=== PATIENT | male | born 1940 | race Caucasian/White ===

== ENCOUNTER → 2016-07-12 | Outpatient (CLI) | payer BC ==
[~2016-07-12] MED LIST: ASPEC325 PO; CHOL100010 PO; CLIN1SOL TOP; CLX20 PO; COQ10100 PO; FENO134C2 PO; GLCSC750600 PO; LOSA25TA18 PO; MULT-506 PO; NTRGSL/4 UT; OMEG10007 PO; TURMPOW PO
--- NOTE | 2016-07-12 11:49 | DIAGNOSTIC IMAGING REPORT ---
LEFT SHOULDER MIN 2 VIEWS ROUTINE CLINICAL HISTORY: Left shoulder pain. Fall. Impingement. COMPARISON: None FINDINGS: Median sternotomy wires and clips from bypass grafting are incidentally noted. There is moderate AC joint arthrosis and glenohumeral joint arthrosis. No fracture or suspicious lesion is present. IMPRESSION: 1. 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 2. No fracture. Electronically signed by: Godfrey Bustillos M.D. 07/12/2016 11:47 AM Dictated Date/Time: 07/12/2016 11:40 AM
== END | disposition home or self-care (01) ==
LOC: C.RAD1850 11:27
PROVIDERS: ATTEND Family Medicine
DX: M19.012 Primary osteoarthritis, left shoulder (principal)

== ENCOUNTER → 2016-09-24 | Outpatient (CLI) | payer BC ==
[~2016-09-24] MED LIST changes: +ASPI325T45 PO; +CHOL20007 PO; +CITA20TA4 PO; +COEN1CAP28 PO; +GLUC250C PO; +MAGN400T6 PO; +OXYC-57 PO; +REPA2TAB12 PO; +TAMS0.4C38 PO
[2016-09-24 13:32] LABS: HEMATOCRIT 40.1 % (42-52); MEAN CELL VOLUME 92.6 fL (80-100); MEAN CORPUSCULAR HEMOGLOBIN 29.6 pg (25-34); MEAN CORPUSCULAR HGB CONC 31.9 g/dl (32-36); MEAN PLATELET VOLUME 10.2 fL (7.4-10.4); PLATELET COUNT 169 K/uL (130-400); RED BLOOD COUNT 4.33 M/uL (4.7-6.1)
[2016-09-24 13:45] LABS: BLOOD UREA NITROGEN 25 mg/dl (7-18); BUN/CREATININE RATIO 15.7 (10-20); CARBON DIOXIDE 29 mmol/L (21-32); CHLORIDE 109 mmol/L (98-107); GLUCOSE 132 mg/dl (70-99); POTASSIUM 4.4 mmol/L (3.5-5.1); SODIUM 145 mmol/L (136-145)
[2016-09-24 13:46] LABS: CALCIUM 9.6 mg/dl (8.5-10.1)
== END | disposition home or self-care (01) ==
LOC: C.LAB1850 11:30
PROVIDERS: ATTEND Internal Medicine Nephrology
DX: I10 Essential (primary) hypertension (principal); N18.3 Chronic kidney disease, stage 3 (moderate); N30.90 Cystitis, unspecified without hematuria; E55.9 Vitamin D deficiency, unspecified; C91.10 Chronic lymphocytic leukemia of B-cell type not having achieved remission; R80.9 Proteinuria, unspecified; N17.9 Acute kidney failure, unspecified

== ENCOUNTER → 2017-01-14 | Outpatient (CLI) | payer BC ==
[~2017-01-14] MED LIST changes: -OXYC-57 PO; -REPA2TAB12 PO; +REPA2TAB13 PO
[2017-01-14 16:59] LABS: MEAN CORPUSCULAR HGB CONC 32.6 g/dl (32-36); MEAN PLATELET VOLUME 10.2 fL (7.4-10.4); PLATELET COUNT 195 K/uL (130-400)
[2017-01-14 17:05] LABS: URINE APPEARANCE CLEAR (CLEAR); URINE BILIRUBIN NEG (NEG); URINE COLOR YELLOW; URINE EPITHELIAL CELL AUTO 0-5 /lpf (0-5); URINE NITRITE NEG (NEG); UROBILINOGEN NEG (NEG)
[2017-01-14 17:06] LABS: ALT/SGPT 23 U/L (12-78); AST/SGOT 16 U/L (15-37); BLOOD UREA NITROGEN 40 mg/dl (7-18); BUN/CREATININE RATIO 16.7 (10-20); CALCIUM 9.4 mg/dl (8.5-10.1); CARBON DIOXIDE 27 mmol/L (21-32); CHLORIDE 110 mmol/L (98-107); GLUCOSE 150 mg/dl (70-99); POTASSIUM 4.6 mmol/L (3.5-5.1); SODIUM 143 mmol/L (136-145)
[2017-01-14 17:09] LABS: ALB/GLOB RATIO 1.1 (0.9-2); ALKALINE PHOSPHATASE 53 U/L (45-117)
[2017-01-14 17:12] LABS: MANUAL MICROSCOPIC REQUIRED? NO; REVIEW REQ? NO
[2017-01-14 17:23] LABS: URINE PROTIEN/CREAT RATIO 0.3 (0-0.2); URINE TOTAL PROTEIN 27.6 mg/dl (0-11.9)
[2017-01-14 17:53] LABS: HEMATOCRIT 37.7 % (42-52); MEAN CELL VOLUME 89.8 fL (80-100); MEAN CORPUSCULAR HEMOGLOBIN 29.3 pg (25-34); WHITE BLOOD COUNT 27.91 K/uL (4.8-10.8)
[2017-01-14 17:54] LABS: COMPLETE YES; EOSINOPHIL % 0.9 %; LYMPH ABS # 21.24 K/uL (1.2-3.4); LYMPHOCYTE % 76.1 %; NEUTROPHILS % 15.9 %; PROLYM# MAN 1.23 K/uL (0-0); SMUDGE CELLS PRESENT
== END | disposition home or self-care (01) ==
LOC: C.LAB1850 14:56
PROVIDERS: ATTEND Internal Medicine Nephrology
DX: I12.9 Hypertensive chronic kidney disease with stage 1 through stage 4 chronic kidney disease, or unspecified chronic kidney disease (principal); N18.3 Chronic kidney disease, stage 3 (moderate); C91.10 Chronic lymphocytic leukemia of B-cell type not having achieved remission; R80.9 Proteinuria, unspecified; E55.9 Vitamin D deficiency, unspecified; N17.9 Acute kidney failure, unspecified

== ENCOUNTER → 2017-02-12 | Outpatient (CLI) | payer BC ==
[2017-02-12 16:01] LABS: MANUAL MICROSCOPIC REQUIRED? NO; REVIEW REQ? NO; URINE APPEARANCE CLEAR (CLEAR); URINE BILIRUBIN NEG (NEG); URINE COLOR YELLOW; URINE NITRITE NEG (NEG); URINE PH 5.5 (4.5-7.5); UROBILINOGEN NEG (NEG)
[2017-02-12 16:24] LABS: URINE PROTIEN/CREAT RATIO 0.3 (0-0.2); URINE TOTAL PROTEIN 37.5 mg/dl (0-11.9)
[2017-02-12 16:26] LABS: BLOOD UREA NITROGEN 29 mg/dl (7-18); BUN/CREATININE RATIO 15.2 (10-20); CALCIUM 9.7 mg/dl (8.5-10.1); CARBON DIOXIDE 24 mmol/L (21-32); CHLORIDE 109 mmol/L (98-107); GLUCOSE 191 mg/dl (70-99); PHOSPHORUS 3.4 mg/dl (2.5-4.9); POTASSIUM 4.4 mmol/L (3.5-5.1); SODIUM 141 mmol/L (136-145)
== END | disposition home or self-care (01) ==
LOC: C.LAB1850 14:49
PROVIDERS: ATTEND Internal Medicine Nephrology
DX: I10 Essential (primary) hypertension (principal); N18.3 Chronic kidney disease, stage 3 (moderate); N30.90 Cystitis, unspecified without hematuria; E55.9 Vitamin D deficiency, unspecified; C91.10 Chronic lymphocytic leukemia of B-cell type not having achieved remission

== ENCOUNTER 2017-03-28 05:06 | Day surgery (SDC) | payer BC ==
[2017-03-14 11:42] VITALS: BMI 32.0
--- NOTE | 2017-03-14 12:08 | PAT Medication Instructions ---
Service Date Mar 14, 2017. Current Home Medication List Aspirin (Aspirin), 325 MG PO QAM Cholecalciferol (Vitamin D3), 2.5 TAB PO QAM Citalopram Hydrobromide (Citalopram Hydrobromide), 1 TAB PO QPM Clindamycin Phosphate (Topical (Cleocin-T), TOP HS Coenzyme Q10 (Ubidecarenone) (Co Q10), 200 MG PO BID Fenofibrate (Tricor ), 134 MG PO QPM Fish Oil ([place]-3), 3 CAP PO QAM Glucosamine-Chondroitin (Glucosamine/Chondroitin), 1 CAP PO BID Magnesium Oxide (Mag-Ox), 400 MG PO DAILY PRN for PRN Multivitamin (Multivitamin), 1 TAB PO QAM Nitroglycerin (Nitrostat), 0.4 MG UT PRN Repaglinide (Prandin), 2 MG PO AC Tamsulosin Hcl (Flomax), 0.4 MG PO HS Turmeric (Curcuma Longa) (Bulk (Turmeric), 6 GM PO QAM Medication Instructions For Your Scheduled Surgery - Continue as directed: Nitroglycerin (Nitrostat), 0.4 MG UT PRN - Hold the following medications 2 weeks prior to surgery: Turmeric (Curcuma Longa) (Bulk (Turmeric), 6 GM PO QAM Glucosamine-Chondroitin (Glucosamine/Chondroitin), 1 CAP PO BID Coenzyme Q10 (Ubidecarenone) (Co Q10), 200 MG PO BID Fish Oil ([place]-3), 3 CAP PO QAM - Hold the following medications 24 hours prior to surgery: Fenofibrate (Tricor ), 134 MG PO QPM Clindamycin Phosphate (Topical (Cleocin-T), TOP HS - Hold the following medications the morning of surgery: Cholecalciferol (Vitamin D3), 2.5 TAB PO QAM Repaglinide (Prandin), 2 MG PO AC Magnesium Oxide (Mag-Ox), 400 MG PO DAILY PRN for PRN Multivitamin (Multivitamin), 1 TAB PO QAM Aspirin (Aspirin), 325 MG PO QAM (otherwise okay to continue per surgeon) - Take the following medications as scheduled the night before surgery: Tamsulosin Hcl (Flomax), 0.4 MG PO HS Citalopram Hydrobromide (Citalopram Hydrobromide), 1 TAB PO QPM *nothing to eat or drink after midnight* If you have any questions please call us at [phone] or [phone] or [phone]
--- NOTE | 2017-03-14 13:11 | DIAGNOSTIC IMAGING REPORT ---
CHEST PREADMISSION(PA/LAT) CLINICAL HISTORY: Preoperative evaluation. COMPARISON STUDY: Chest radiograph December 08, [address] of March 28, 2012. FINDINGS: Lung volumes are normal. There is no pneumothorax or pleural effusion. There are median sternotomy wires and clips from bypass grafting. Cardiac size is at the upper limits of normal. There is no evidence of pulmonary edema. No consolidation is identified. IMPRESSION: No acute cardiopulmonary findings. Electronically signed by: Godfrey Bustillos M.D. 03/14/2017 1:09 PM Dictated Date/Time: 03/14/2017 1:09 PM
[2017-03-14 13:50] LABS: HEMATOCRIT 38.1 % (42-52); MEAN CELL VOLUME 89.4 fL (80-100); MEAN CORPUSCULAR HEMOGLOBIN 28.9 pg (25-34); MEAN CORPUSCULAR HGB CONC 32.3 g/dl (32-36); MEAN PLATELET VOLUME 9.8 fL (7.4-10.4); PLATELET COUNT 159 K/uL (130-400); RED BLOOD COUNT 4.26 M/uL (4.7-6.1); WHITE BLOOD COUNT 55.57 K/uL (4.8-10.8)
[2017-03-14 14:12] LABS: BASO ABS # 0.22 K/uL (0-0.2); BASOPHIL % 0.4 % (0-2); COMPLETE YES; EOSINOPHIL % 0.4 %; LYMPH ABS # 31.67 K/uL (1.2-3.4); NEUTROPHILS % 12.6 %; SMUDGE CELLS PRESENT
[~2017-03-28] VITALS: Ht 180.3 cm; Wt 105.3 kg
[~2017-03-28 05:06] MED LIST changes: -ASPEC325 PO; -CHOL100010 PO; -CLX20 PO; -COQ10100 PO; -GLCSC750600 PO; -LOSA25TA18 PO; +REPA2TAB12 PO; -REPA2TAB13 PO
[2017-03-28 05:42] VITALS: BP 174/86; PULSE 69; TEMP 36.7; O2SAT 99; Ht 180.3 cm; Wt 105.3 kg
[2017-03-28] MEDS ORDERED: LACTATED RINGER'S 1000ML 1,000 ML IV SCH (06:00)
[2017-03-28] MEDS ORDERED: BACITRACIN 50000 UNIT VIAL ONE (06:29)
[2017-03-28] MEDS ORDERED: BUPIVACAINE 0.5 % 5 MG/1 ML MPF 30ML VIAL ONE (06:29)
--- NOTE | 2017-03-28 06:30 | History & Physical Bridge Note ---
H&P Re-Evaluation Bridge Note: I have examined the patient, reviewed the History & Physical and in the interval since the performance of the History & Physical I have noted the following changes of clinical significance: No changes noted pt marked SO at bedside all questions answered
[2017-03-28] MEDS ORDERED: HYDROmorphone INJ 2 MG/ML SYR/VIAL IV PRN (08:15)
[2017-03-28] MEDS ORDERED: LABETALOL HCL IV 5 MG/ML 20ML IV PRN (08:15)
[2017-03-28] MEDS ORDERED: ONDANSETRON INJ 2 MG/ML 2 ML VIAL IV PRN ×2 (08:15→11:45)
[2017-03-28] MEDS ORDERED: PHENYLEPHRINE 100MCG/ML 5ML SYR IV PRN (08:15)
[2017-03-28] MEDS ORDERED: ATROPINE SULFATE 0.1 MG/ML 5ML SYR IV PRN (08:15)
[2017-03-28] MEDS ORDERED: NALOXONE HCL 0.4 MG/1 ML VIAL/CARP IV PRN (08:15)
[2017-03-28] MEDS ORDERED: MEPERIDINE HCL 25 MG/ML CARP IV PRN (08:15)
[2017-03-28] MEDS ORDERED: FENTANYL CITRATE INJ 50 MCG/1 ML 2 ML VIAL IV PRN (08:15)
[2017-03-28] MEDS ORDERED: FLUMAZENIL 0.1 MG/1 ML 10 ML VIAL IV PRN (08:15)
[2017-03-28] MEDS ORDERED: EpHEDrine SULFATE INJ 50 MG/ML AMP IV PRN (08:15)
[2017-03-28] MEDS ORDERED: PROPOFOL IV EMULSION 10 MG/ML 20 ML VIAL IV ONE (09:26)
[2017-03-28] MEDS ORDERED: LIDOCAINE HCL 2% 2 ML VIAL (20MG/ML) ONE (09:26)
[2017-03-28] MEDS ORDERED: FENTANYL CITRATE INJ 50 MCG/1 ML 2 ML VIAL ONE ×3 (09:27→11:23)
[2017-03-28] MEDS ORDERED: EpHEDrine SULFATE INJ 50 MG/ML AMP ONE (11:23)
[2017-03-28] MEDS ORDERED: NEOSTIGMINE METHYLSULFATE 5 MG/5 ML SYR ONE (11:23)
[2017-03-28] MEDS ORDERED: ONDANSETRON INJ 2 MG/ML 2 ML VIAL ONE (11:23)
[2017-03-28] MEDS ORDERED: SODIUM CHLORIDE 0.9% 1000ML 1,000 ML IV SCH (11:32)
[2017-03-28] MEDS ORDERED: OXYC-57 PO (11:36)
--- NOTE | 2017-03-28 11:39 | [facility] Operative Report ---
Operative Report Operative Date Mar 28, 2017. Pre-Operative Diagnosis Ventral hernia. Post-Operative Diagnosis Same as preop. incisional abd adhesions Procedure(s) Performed Laparoscopic repair of incisional hernia with 12 cm surgimesh, lysis of abdominal adhesions. Surgeon Dr. Jay Merchandising Consultant Surgeon(s) Keyur Jacobo, PAC Estimated Blood Loss 15 ml Findings abd adhesion and multiple incisional defects Specimens None. Description of Procedure OR summary dictated confirmation number [id number] I attest to the content of the Intraoperative Record and any orders documented therein. Any exceptions are noted below.
--- NOTE | 2017-03-28 11:44 | Discharge Instructions ---
Discharge Instructions Date of Service Mar 28, 2017. Visit Reason for Visit: Ventral Hernia Discharge Discharge Diagnosis / Problem: Ventral Hernia Discharge Goals Goal(s): Decrease discomfort, Improve function Activity Recommendations Activity Limitations: as noted below Lifting Limitations: no more than 10 pounds Exercise/Sports Limitations: until after follow-up appointment Shower/Bathe: tomorrow Driving or Machine Use: resume 1 day after discharge (When no longer using narcotic pain medication) Anesthesia . Post Anesthesia Instructions: If you have had General Anesthesia or IV Sedation: * Do not drive today. * Resume driving when surgeon permits. * Do not make important decisions or sign legal documents today. * Call surgeon for: 1. Temperature elevations greater than 101 degrees F. 2. Uncontrollable pain. 3. Excessive bleeding. 4. Persistent nausea and vomiting. 5. Medication intolerance (nausea, vomiting or rash). * For nausea and vomiting use only clear liquids such as: tea, soda, bouillon until nausea subsides, then gradually increase diet as tolerated. * If you have any concerns or questions, call your surgeon's office. If physician is unavailable and it is an emergency, call 911 or go to the nearest emergency room. . Instructions / Follow-Up Instructions / Follow-Up Follow up with Dr. Jay in the clinic in 1 week. Please call [facility] at [phone] to schedule an appointment if you have not done so already. [facility]. [address] [place] [address]. Diet Recommendations Recommended Home Diet: resume previous diet (Advance as tolerated) Procedures Procedures Performed: Laparoscopic repair of incisional hernia, lysis of abdominal adhesions. Pending Studies Studies pending at discharge: no Medical Emergencies . Who to Call and When: Medical Emergencies: If at any time you feel your situation is an emergency, please call 911 immediately. . Non-Emergent Contact Non-Emergency issues call your: Primary Care Provider, Surgeon Call Non-Emergent contact if: you have a fever, temperature is above 101.5, your pain is not controlled, your pain is worsening, wound has increased drainage, wound has increased redness . . "Provider Documentation" section prepared by Joey Tan. . [place] Drug Monitoring Program Search Results: patient reviewed within database, no issues identified
[2017-03-28] MEDS ORDERED: OXYCODONE/ACETAMINOPHEN 5-325 TAB PO PRN ×2 (11:45)
[2017-03-28] MEDS ORDERED: MoRPHine SULFATE 2 MG/ML CARP IV PRN (11:45)
[2017-03-28] MEDS ORDERED: ROCURONIUM BROMIDE 10 MG/ML 5 ML VIAL IV ONE (11:47)
--- NOTE | 2017-03-28 11:49 | Anesthesiology Progress Note ---
Anesthesia Post Op Note Date & Time Mar 28, 2017 at 11:49 Vital Signs Pain Intensity: 0 Vital Signs Past 12 Hours Date Time Temp Pulse Resp B/P (MAP) Pulse Ox O2 Delivery O2 Flow Rate FiO2 03/28/17 11:40 75 12 169/82 99 Oxymask 5 03/28/17 11:32 36.2 87 12 177/88 96 Oxymask 5 03/28/17 05:42 36.7 69 20 174/86 (115) 99 Room Air Notes Mental Status: alert / awake / arousable, participated in evaluation Pt Amnestic to Procedure: Yes Nausea / Vomiting: adequately controlled Pain: adequately controlled Airway Patency, RR, SpO2: stable & adequate BP & HR: stable & adequate Hydration State: stable & adequate Anesthetic Complications: no major complications apparent
[2017-03-28 12:15] VITALS: BP 151/67; PULSE 72; TEMP 36.7; O2SAT 94
[2017-03-28 12:45] VITALS: BP 140/58; PULSE 68; O2SAT 94
[2017-03-28 13:15] VITALS: BP 137/60; PULSE 67; TEMP 36.7; O2SAT 95
--- NOTE | 2017-03-28 13:27 | OPERATIVE REPORT ---
DATE OF OPERATION: 03/28/2017 SURGEON: Mendez Jay MD. BRAZING MACHINE FEEDER: Yoav Jacobo PA-C and Joey Acosta PA-C. PREOPERATIVE DIAGNOSIS: Ventral hernia. POSTOPERATIVE DIAGNOSIS: Incarcerated incisional hernia with dense abdominal adhesions. PROCEDURES: Laparoscopic lysis of abdominal adhesions and repair of an incarcerated incisional hernia with 12-cm Surgimesh. SUMMARY: The patient was brought into the operating room. A River catheter had been inserted. The abdomen was prepped with scrubbing solution and properly draped. We made a small incision above the umbilicus. 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 We made the incision away from the previous scar, dissected out of the abdominal wall with Joey clamps to the point that we were able then to enter the fascia. Under direct visualization, we entered the peritoneal cavity, where a trocar was inserted without any difficulty. CO2 insufflated slowly. At this point, we were able to identify in the camera that we were probably into some omental areas attached to the incision. Therefore, we looked around and we were able to look at the pelvic area and identified that the patient had 2 inguinal hernias, but certainly there were not a problem at this time and actually, he never complained about it. We then were able to find a window in the left lower quadrant that opened from the adhesions, where we were able to place a 5-mm trocar under direct visualization with preemptive local analgesia of 1% Xylocaine. Similarly once we placed the camera in that area, we were able to identify the initial opening that the patient had a significant amount of omental adhesions, completely incarcerating and adherent to the abdominal wall, where the hernia was, which was palpable to the left of the midline in an almost supraumbilical area. We then elected to place another 5-mm trocar in the left upper quadrant, which the field was quite open and a 5-mm right upper quadrant. Then with these, we were able to reduce completely an incarcerated omentum strictly adherent to the hernial sac using electrocautery. Once we returned everything inside the abdomen, we then were able to delineate that the patient had multiple defects, certainly one about 2 cm that was free and a few other ones. Therefore, we dissected out and entered the preperitoneal fat to the musculofascial plane. So, we had enough overlap that we could use the mesh away from placing it against the peritoneum and fatty tissue. We wanted to place it against the muscular fascial planes, which we did. We brought out 12-cm mesh, which was previously marked on the skin to overlap the defect that the patient had quite nicely. We tacked it to the abdominal wall with absorbable tackers. Once this had been completed, we then used fascial sutures of 2-0 nylon to further adhering the mesh to the fascial planes. The repair appeared to be solid. At this point, we took down individual trocars under direct visualization that allowed us to remove the left upper quadrant trocar. The mesh had been placed through the 5-mm trocar that we initially had placed to enter the abdomen and once we placed the mesh there, we had closed that fascial stitch with 0 retention suture. The procedure was tolerated well by the patient. Estimated blood loss approximately 50 mL. The patient was taken to recovery room in good condition. I attest to the content of the Intraoperative Record and any orders documented therein. Any exceptions are noted below. MTDD
== END 2017-03-28 13:45 | disposition home or self-care (01) ==
LOC: C.ACU 05:06
PROVIDERS: ATTEND Surgery
DX: K43.9 Ventral hernia without obstruction or gangrene (principal); K66.0 Peritoneal adhesions (postprocedural) (postinfection); I25.10 Atherosclerotic heart disease of native coronary artery without angina pectoris; I50.9 Heart failure, unspecified; I13.0 Hypertensive heart and chronic kidney disease with heart failure and stage 1 through stage 4 chronic kidney disease, or unspecified chronic kidney disease; N18.3 Chronic kidney disease, stage 3 (moderate); E11.22 Type 2 diabetes mellitus with diabetic chronic kidney disease; D64.9 Anemia, unspecified; E55.9 Vitamin D deficiency, unspecified; G47.33 Obstructive sleep apnea (adult) (pediatric); N40.1 Benign prostatic hyperplasia with lower urinary tract symptoms; N13.8 Other obstructive and reflux uropathy; C91.10 Chronic lymphocytic leukemia of B-cell type not having achieved remission; E66.9 Obesity, unspecified; Z68.32 Body mass index [BMI] 32.0-32.9, adult; Z87.891 Personal history of nicotine dependence; Z79.82 Long term (current) use of aspirin; Z79.899 Other long term (current) drug therapy

== ENCOUNTER → 2017-06-06 | Outpatient (CLI) | payer BC ==
[~2017-06-06] MED LIST changes: +ASPECOTC PO; -ASPI325T45 PO
[2017-06-06 14:17] LABS: HEMATOCRIT 39.9 % (42-52); HEMOGLOBIN 12.9 g/dL (14.0-18.0); MEAN CELL VOLUME 90.7 fL (80-100); MEAN CORPUSCULAR HEMOGLOBIN 29.3 pg (25-34); MEAN CORPUSCULAR HGB CONC 32.3 g/dl (32-36); MEAN PLATELET VOLUME 9.9 fL (7.4-10.4); PLATELET COUNT 183 K/uL (130-400); RED CELL DISTRIBUTION WIDTH CV 15.2 % (11.5-14.5); RED CELL DISTRIBUTION WIDTH SD 49.1 fL (36.4-46.3); WHITE BLOOD COUNT 75.52 K/uL (4.8-10.8)
[2017-06-06 17:10] LABS: ALBUMIN 3.8 gm/dl (3.4-5.0); BLOOD UREA NITROGEN 39 mg/dl (7-18); CALCIUM 9.4 mg/dl (8.5-10.1); CARBON DIOXIDE 24 mmol/L (21-32); CREATININE 2.14 mg/dl (0.60-1.40); GLUCOSE 150 mg/dl (70-99); POTASSIUM 4.5 mmol/L (3.5-5.1); SODIUM 138 mmol/L (136-145)
[2017-06-06 17:11] LABS: PHOSPHORUS 3.7 mg/dl (2.5-4.9)
== END | disposition home or self-care (01) ==
LOC: C.LAB1850 12:13
PROVIDERS: ATTEND Internal Medicine Nephrology
DX: I12.9 Hypertensive chronic kidney disease with stage 1 through stage 4 chronic kidney disease, or unspecified chronic kidney disease (principal); N18.3 Chronic kidney disease, stage 3 (moderate); D64.9 Anemia, unspecified; R80.9 Proteinuria, unspecified

== ENCOUNTER 2020-07-11 17:18 | Inpatient (IN) ==
[2020-07-11] MEDS ORDERED: ONDANSETRON INJ 2 MG/ML 2 ML VIAL IV STA (17:56)
--- NOTE | 2020-07-11 17:56 | Emergency Department Note ---
Impression & Plan Dizziness, Hypertension, Nausea ED Provider Note Provider: Antoine Dawkins MD DATE OF SERVICE: 07/11/2020 CHIEF COMPLAINT: Dizzy, high blood pressure, nausea HISTORY OF PRESENT ILLNESS: Patient is a 79-year-old gentleman history of CLL, CKD, diabetes, CAD, hypertension presenting here today via ambulance with report of dizziness since yesterday with some nausea particularly noted elevated blood pressure today. Patient states about 3 weeks ago he had surgery for left ankle fracture has been recovering at home. Stated yesterday suddenly started to feel dizzy [place] with movement or if he change position. Denies any falls but states it felt like he was unsteady and going to fall. Denies any chest pain or palpitations. Denies abdominal pain states he feels quite nauseous. Decreased intake. Patient states he did not take his home blood pressure medicines of losartan and carvedilol as he thought these may be contributing. States in the distant past he had some orthostatic type dizziness but this felt different. Denies any headache or visual change. Patient states today blood pressure was significant elevated greater than 190 at home systolic and 140 diastolic and while the dizziness was a bit less still present called EMS. States has had less intake today due to nauseousness and has not really eaten anything. REVIEW OF SYSTEMS: A total of 10 review of systems was obtained and negative except as stated above in the HPI. PAST MEDICAL HISTORY: As noted above MEDICATIONS: Reviewed home medications with the patient SOCIAL HISTORY: Lives at home with PHYSICAL EXAM: GENERAL: alert and oriented in no acute distress on stretcher Head: normocephalic and atraumatic, hearing aids in place. EYES: No injection, discharge or icterus. PERRL, EOMI. NECK: Trachea midline. LUNGS: Airway patent. No retractions. Breath sounds clear HEART: Regular rate and rhythm. No chest wall tenderness ABDOMEN: Soft and non-tender, without guarding or rebound. SKIN: Acyanotic, warm, dry, without rashes EXTREMITIES: Without swelling, tenderness or deformity with the left ankle bandaged/dressed from prior surgery. No obvious signs of bleeding or swelling of this dressing. NEUROLOGICAL: No focal deficits. No aphasia. No facial droop or slurred speech. Normal strength and tone in the extremities. Sensation to gross touch normal in extremities EKG: Sinus bradycardia with first-degree AV block 51 bpm. No PVC. Left axis noted without acute ST segment elevation or depression. I right bundle branch and left anterior fascicular block noted. Compared to previous from June 21, 2018 heart rates decreased. CONTINUOUS CARDIAC MONITORING: was ordered and showed a heart rate of 40-50 bpm in sinus bradycardia Patient's laboratory studies and imaging reviewed. Differential includes Benign positional vertigo, dehydration, hypovolemia, anemia, tumor, infection, hypoglycemia, electrolyte abnormalities, cardiac sources, intracerebral event, toxicologic, neurologic, as well as other pathologies. IMPRESSION/MEDICAL DECISION MAKING: Patient presents complaining of 2 days of some dizziness with nausea symptoms. Benign abdomen without tenderness here. No fevers reported other URI symptoms. Patient reports a blood pressure significant of adverse blood pressure was significantly elevated. Repeats have been somewhat better. Patient states he did not take his normal blood pressure medicines yesterday as he thought this was causing some of his dizziness symptoms. He states these were provoked somewhat by movement. Patient denies any falls or other numbness or weakness in the extremities. Patient does have significant medical history of CLL, diabetes, CKD, and cardiac disease. Patient denies diarrheal symptoms or chest pain or palpitations but does report nausea and states decreased intake today. Do question of possible intracranial abnormality and CT of the head was completed. Basic labs were obtained especially given his underlying history of CKD. EKG without significant cardiac arrhythmia. Renal function actually appears better than baseline. Some hyponatremia 146 is noted today however. Transaminases not elevated and doubt acute hepatitis. No bilirubin elevation or evidence from lipase consistent with acute pancreatitis. Troponin is undetectable. CT the head without acute abnormality noted. Question if his symptoms are probably related to peripheral versus central cause of his dizziness. Given a small dose of Ativan here. Patient still quite difficult with ambulation and given concern for possible central (concern possible posterior circulation stroke) etiology discussed with him further observation here in the hospital. Blood pressure is elevated as well given a small dose of hydralazine given his bradycardia. The hospitalist was contacted. Patient updated his family via phone while I was in the room. DIAGNOSIS: Dizziness, nausea, hypertension DISPOSITION: Hospitalist will evaluate Patient was agreeable with this plan. Past Med/Surg History Medical History (Updated 07/11/20 @ 19:34 by Antoine Dawkins M.D.) Anemia BPH (benign prostatic hyperplasia) Cancer SKIN CANCER Chronic kidney disease, stage III (moderate) CLL (chronic lymphocytic leukemia) Depression Diabetes mellitus, type 2 Diverticulitis PERFORATED COLON Gout Hyperlipidemia Hypertension Myocardial Infarction 1997 Peripheral neuropathy Sleep apnea NO DEVICE Vitamin D deficiency Surgical History History of adenoidectomy History of bowel resection WITH ILEOSTOMY, 2/2 PERFORATED DIVERTICULUM History of cardiac cath 1997 (NO STENTS) 2015 (NO STENTS) History of cataract surgery History of coronary artery bypass graft 1999 ([facility]) GARCIA to LAD with segment of left radial artery placed as a Y graft to Dx, free L radial artery to OM1 and a free sequential L radial artery to PDA. History of herniorrhaphy History of nasal septoplasty History of reversal of ileostomy History of tonsillectomy History of tooth extraction History of uvulopalatopharyngoplasty Family History Grandfather (Paternal) Family history of diabetes mellitus Son No problems noted. Sister Family history of diabetes mellitus Brother Family history of diabetes mellitus Family hx of colon cancer Social History Smoking Status: Former smoker Second Hand Exposure: No; Hx Alcohol Use: Yes Alcohol type: beer Hx Substance Use: No Preferred Language: Citizen Of [place] Communication Ability: Effective Visual Impairment: No Limitations Hearing Ability: Normal Medical Specialist Required: No Beliefs That Will Affect Care: None marital status: Current Living Situation: Spouse Feels Safe at Home: Yes Assistive Devices: Glasses Allergies Allergies Allergy/AdvReac Type Severity Reaction Status Date / Time Iodinated Contrast Media Allergy Intermediate Hives Verified 06/18/20 15:58 tetracycline Allergy Intermediate SWELLING Verified 06/18/20 15:58 OF GENITALS Pfrocbf-Yqi-Ieh Reductase AdvReac Mild JOINT PAIN Verified 06/18/20 15:58 Inhibitor Home Meds Home Medications Medication Instructions Recorded Confirmed cholecalciferol (vitamin D3) 5,000 unit PO DAILY 06/10/18 07/11/20 [Vitamin D3] citalopram 20 mg PO QPM 06/10/18 07/11/20 coQ10 (ubiquinol) 200 mg PO DAILY 06/10/18 07/11/20 desonide 1 applic TOPICAL QID PRN 06/10/18 07/11/20 glucosamine-chondroitin 1 cap PO BID 06/10/18 07/11/20 ketoconazole 1 applic TOPICAL DAILY PRN 06/10/18 07/11/20 magnesium oxide 250 mg PO DAILY 06/10/18 07/11/20 multivitamin 1 tab PO DAILY 06/10/18 07/11/20 nitroglycerin 1 tab SUBLINGUAL UD PRN 06/10/18 07/11/20 omega 1-mmu-sav-fish oil [Fish Oil] 1 cap PO DAILY 06/10/18 07/11/20 repaglinide [Prandin] 4 mg PO TID 06/10/18 07/11/20 tamsulosin 0.4 mg PO QPM 06/10/18 07/11/20 ondansetron HCl 8 mg PO UD PRN 06/21/18 07/11/20 clobetasol 0.05 % scalp solution 1 appln TOPICAL PRN ml 02/16/19 07/11/20 fluocinonide 0.05 % topical 1 appln TOPICAL BID PRN ml 02/16/19 07/11/20 solution carvedilol 6.25 mg tablet 6.25 mg PO BID 12/04/19 07/11/20 furosemide 20 mg tablet 20 mg PO DAILY tab 03/24/20 07/11/20 isosorbide mononitrate 30 mg 30 mg PO DAILY 03/24/20 07/11/20 tablet,extended release 24 hr losartan 100 mg tablet 50 mg PO DAILY tab 03/24/20 07/11/20 ascorbic acid (vitamin C) [Vitamin 500 mg PO Q OTHER DAY 06/18/20 07/11/20 C] ferrous sulfate 325 mg PO Q OTHER DAY 06/18/20 07/11/20 ibrutinib 140 mg PO DAILY 06/18/20 07/11/20 terbinafine HCl 0 mg PO DAILY PRN 06/18/20 07/11/20 Results & Data (ED) Vital Signs Vital Signs - 24 hr 07/11/20 17:27 07/11/20 17:51 07/11/20 18:00 Temperature 36.9 C Temperature Source Oral Pulse Rate 58 L 58 L 51 L Pulse Rate [Right Finger] Pulse Rate from SpO2 Sensor 54 L 50 L Respiratory Rate 18 20 16 Respiratory Effort / Characteristics Respiratory Depth Respiratory Pattern Blood Pressure 223/82 H Blood Pressure [Right Arm] Blood Pressure Mean 129 Blood Pressure Mean [Right Arm] Blood Pressure Position [Right Arm] Pulse Oximetry 99 98 94 Oxygen Delivery Method Room Air Sepsis Recent Fever Within 48 Hours No Sepsis New/Unexplained Change in Mental Status No Sepsis Action Taken by Nursing No Action Required 07/11/20 18:15 07/11/20 18:22 07/11/20 18:26 Temperature Temperature Source Pulse Rate 54 L 49 L Pulse Rate [Right Finger] Pulse Rate from SpO2 Sensor 55 L Respiratory Rate 15 15 Respiratory Effort / Characteristics Respiratory Depth Respiratory Pattern Blood Pressure 180/67 H Blood Pressure [Right Arm] Blood Pressure Mean 104 Blood Pressure Mean [Right Arm] Blood Pressure Position [Right Arm] Pulse Oximetry 97 98 Oxygen Delivery Method Room Air Sepsis Recent Fever Within 48 Hours Sepsis New/Unexplained Change in Mental Status Sepsis Action Taken by Nursing 07/11/20 18:30 07/11/20 19:27 07/11/20 20:06 Temperature Temperature Source Pulse Rate 49 L 52 L Pulse Rate [Right Finger] 61 Pulse Rate from SpO2 Sensor 49 L Respiratory Rate 15 20 16 Respiratory Effort / Characteristics Non-Labored Spontaneous Respiratory Depth Normal Respiratory Pattern Regular Blood Pressure 208/58 H Blood Pressure [Right Arm] 183/64 H Blood Pressure Mean 108 Blood Pressure Mean [Right Arm] 103 Blood Pressure Position [Right Arm] Lying Pulse Oximetry 93 96 Oxygen Delivery Method Room Air Sepsis Recent Fever Within 48 Hours Sepsis New/Unexplained Change in Mental Status Sepsis Action Taken by Nursing 07/11/20 20:31 Temperature Temperature Source Pulse Rate 52 L Pulse Rate [Right Finger] Pulse Rate from SpO2 Sensor 52 L Respiratory Rate 16 Respiratory Effort / Characteristics Respiratory Depth Respiratory Pattern Blood Pressure 174/77 H Blood Pressure [Right Arm] Blood Pressure Mean 109 Blood Pressure Mean [Right Arm] Blood Pressure Position [Right Arm] Pulse Oximetry 95 Oxygen Delivery Method Room Air Sepsis Recent Fever Within 48 Hours Sepsis New/Unexplained Change in Mental Status Sepsis Action Taken by Nursing Laboratory Data Result diagrams: 07/11/20 18:20 07/11/20 18:20 Lab Results 07/11/20 07/11/20 07/11/20 Range/Units 18:20 18:20 19:50 WBC 5.30 (4.8-10.8) K/uL RBC 4.48 L (4.7-6.1) M/uL Hgb 12.6 L (14.0-18.0) g/dL Hct 39.6 L (42-52) % MCV 88.4 (80-100) fL MCH 28.1 (25-34) pg MCHC 31.8 L (32-36) g/dL RDW Std Deviation 45.3 (36.4-46.3) fL RDW Coeff of Nelson 14.0 (11.5-14.5) % Plt Count 116 L (130-400) K/uL MPV 12.4 H (7.4-10.4) fL Immature Gran % (Auto) 0.0 % Neut % (Auto) 73.8 % Lymph % (Auto) 18.1 % Yates % (Auto) 6.6 % Eos % (Auto) 0.9 % Baso % (Auto) 0.6 % Neut # (Auto) 3.91 (1.4-6.5) K/uL Lymph # (Auto) 0.96 L (1.2-3.4) K/uL Yates # (Auto) 0.35 (0.11-0.59) K/uL Eos # (Auto) 0.05 (0-0.5) K/uL Baso # (Auto) 0.03 (0-0.2) K/uL Immature Gran # (Auto) 0.00 (0.00-0.02) K/uL Platelet Estimate Normal (Normal) Sodium 146 H (136-145) mmol/L Potassium 4.3 (3.5-5.1) mmol/L Chloride 112 H (98-107) mmol/L Carbon Dioxide 27 (21-32) mmol/L Anion Gap 7.0 (3-11) BUN 24 H (7-18) mg/dl Creatinine 1.66 H (0.6-1.4) mg/dl Est Cr Clr Drug Dosing 48.6 ml/min Est GFR ( Amer) 45.4 Est GFR (Non-Af Amer) 39.2 BUN/Creatinine Ratio 14.3 (10-20) Glucose 107 H (70-99) mg/dl Calcium 9.4 (8.5-10.1) mg/dl Magnesium 2.1 (1.8-2.4) mg/dl Total Bilirubin 1.0 (0.2-1) mg/dl AST 11 L (15-37) U/L ALT 19 (12-78) U/L Alkaline Phosphatase 70 (45-117) U/L Troponin I < 0.015 (0-0.045) ng/ml Total Protein 6.0 L (6.4-8.2) gm/dl Albumin 3.3 L (3.4-5.0) gm/dl Globulin 2.7 (2.5-4.0) gm/dl Albumin/Globulin Ratio 1.2 (0.9-2) Lipase 55 L (73-393) U/L TSH 2.080 (0.300-4.500) uIu/ml COVID-19 Eval [facility] SARS-CoV-2, RNA, NAAT (NEGATIVE) 07/11/20 Range/Units 19:50 WBC (4.8-10.8) K/uL RBC (4.7-6.1) M/uL Hgb (14.0-18.0) g/dL Hct (42-52) % MCV (80-100) fL MCH (25-34) pg MCHC (32-36) g/dL RDW Std Deviation (36.4-46.3) fL RDW Coeff of Nelson (11.5-14.5) % Plt Count (130-400) K/uL MPV (7.4-10.4) fL Immature Gran % (Auto) % Neut % (Auto) % Lymph % (Auto) % Yates % (Auto) % Eos % (Auto) % Baso % (Auto) % Neut # (Auto) (1.4-6.5) K/uL Lymph # (Auto) (1.2-3.4) K/uL Yates # (Auto) (0.11-0.59) K/uL Eos # (Auto) (0-0.5) K/uL Baso # (Auto) (0-0.2) K/uL Immature Gran # (Auto) (0.00-0.02) K/uL Platelet Estimate (Normal) Sodium (136-145) mmol/L Potassium (3.5-5.1) mmol/L Chloride (98-107) mmol/L Carbon Dioxide (21-32) mmol/L Anion Gap (3-11) BUN (7-18) mg/dl Creatinine (0.6-1.4) mg/dl Est Cr Clr Drug Dosing ml/min Est GFR ( Amer) Est GFR (Non-Af Amer) BUN/Creatinine Ratio (10-20) Glucose (70-99) mg/dl Calcium (8.5-10.1) mg/dl Magnesium (1.8-2.4) mg/dl Total Bilirubin (0.2-1) mg/dl AST (15-37) U/L ALT (12-78) U/L Alkaline Phosphatase (45-117) U/L Troponin I (0-0.045) ng/ml Total Protein (6.4-8.2) gm/dl Albumin (3.4-5.0) gm/dl Globulin (2.5-4.0) gm/dl Albumin/Globulin Ratio (0.9-2) Lipase (73-393) U/L TSH (0.300-4.500) uIu/ml COVID-19 Eval Order SARS-CoV-2, RNA, NAAT NEGATIVE (NEGATIVE) Administered Medications Discontinued Medications Hydralazine HCl (Hydralazine Hcl 20 Mg/Ml Vial) 5 mg IV NOW ONE Stop: 07/11/20 19:30 Last Admin: 07/11/20 20:06 Dose: 5 mg Documented by: [id number] Lorazepam (Ativan) 0.5 mg in 1 mls @ 1 mls/min IV NOW STA Stop: 07/11/20 19:24 Last Admin: 07/11/20 20:05 Dose: 1 mls/min Documented by: [id number] Isosorbide Mononitrate (Isosorbide Mononitrate 20 Mg Tab) 30 mg PO NOW STA Stop: 07/11/20 20:47 Last Admin: 07/11/20 21:17 Dose: 30 mg Documented by: [id number] Losartan Potassium (Losartan Potassium 25 Mg Tab) 100 mg PO NOW STA Stop: 07/11/20 20:47 Last Admin: 07/11/20 21:17 Dose: 100 mg Documented by: [id number] Ondansetron HCl (Ondansetron Inj 2 Mg/Ml 2 Ml Vial) 4 mg IV NOW STA Stop: 07/11/20 17:57 Last Admin: 07/11/20 18:33 Dose: 4 mg Documented by: [id number] Discharge Plan Visit Data Chief Complaint: Hypertension Stated Complaint: HYPERTENSIVE CRISIS ED Provider: Antoine Dawkins Discharge Problem: Dizziness, Hypertension, Nausea Patient Disposition: Being Evaluated by Hospitalist Forms Stand Alone Forms: My [facility] Prescriptions Prescriptions: No Action losartan 100 mg tablet 50 mg PO DAILY RF: 0 isosorbide mononitrate 30 mg tablet extended release 24 hr 30 mg PO DAILY RF: 0 carvedilol 6.25 mg tablet 6.25 mg PO BID RF: 0 furosemide 20 mg tablet 20 mg PO DAILY RF: 0 fluocinonide 0.05 % solution 1 appln topical BID PRN (Reason: break outs) RF: 0 clobetasol 0.05 % solution 1 appln topical PRN RF: 0 ondansetron HCl 8 mg tablet 8 mg PO UD PRN (Reason: Nausea) RF: 0 terbinafine HCl 250 mg Tablet 0 mg PO DAILY PRN (Reason: toe nail fungus) RF: 0 ascorbic acid (vitamin C) [Vitamin C] 500 mg Tablet 500 mg PO Q OTHER DAY RF: 0 ferrous sulfate 325 mg (65 mg iron) Tablet,Delayed Release (Dr/Ec) 325 mg PO Q OTHER DAY RF: 0 ibrutinib 140 mg Tablet 140 mg PO DAILY RF: 0 desonide 0.05 % Cream 1 applic TOPICAL QID PRN (Reason: Rash) RF: 0 repaglinide [Prandin] 2 mg Tablet 4 mg PO TID RF: 0 citalopram 20 mg Tablet 20 mg PO QPM RF: 0 tamsulosin 0.4 mg Capsule 0.4 mg PO QPM RF: 0 nitroglycerin 0.4 mg Tablet, Sublingual 1 tab Sublingual UD PRN (Reason: Chest Pain) RF: 0 ketoconazole 2 % Cream 1 applic TOPICAL DAILY PRN (Reason: Rash) RF: 0 magnesium oxide 250 mg magnesium Tablet 250 mg PO DAILY RF: 0 cholecalciferol (vitamin D3) [Vitamin D3] 5,000 unit Tablet 5,000 unit PO DAILY RF: 0 omega 3-nam-cuz-fish oil [Fish Oil] 1,000 mg (120 mg-180 mg) Capsule 1 cap PO DAILY RF: 0 multivitamin Tablet 1 tab PO DAILY RF: 0 coQ10 (ubiquinol) 200 mg Capsule 200 mg PO DAILY RF: 0 glucosamine-chondroitin 167-133 mg Capsule 1 cap PO BID RF: 0 Referrals Referrals: Linwood Alberto MD [Primary Care Provider] - Discharge Problem: Hypertension Qualifiers: Hypertension type: unspecified Qualified Code(s): I10 - Essential (primary) hypertension
[2020-07-11 18:47] LABS: Alanine Aminotransferase 19 U/L (12-78); Albumin Level 3.3 gm/dl (3.4-5.0); Aspartate Aminotransferase 11 U/L (15-37); BUN Creatinine Ratio 14.3 (10-20); Blood Urea Nitrogen 24 mg/dl (7-18); Calcium 9.4 mg/dl (8.5-10.1); Carbon Dioxide 27 mmol/L (21-32); Chloride 112 mmol/L (98-107); Creatinine Clr Calc Pharmacy 48.6 ml/min; Est GFR (African American) 45.4; Est GFR (Non-African American) 39.2; Glucose 107 mg/dl (70-99); Magnesium 2.1 mg/dl (1.8-2.4); Potassium 4.3 mmol/L (3.5-5.1); Sodium 146 mmol/L (136-145)
[2020-07-11 18:50] LABS: Hematocrit (blood only) 39.6 % (42-52); Hemoglobin 12.6 g/dL (14.0-18.0); Mean Corpuscular Hemoglobin 28.1 pg (25-34); Mean Corpuscular Hgb Conc 31.8 g/dL (32-36); Mean Corpuscular Volume 88.4 fL (80-100); Mean Platelet Volume 12.4 fL (7.4-10.4); Platelet Count 116 K/uL (130-400); RDW Standard Deviation 45.3 fL (36.4-46.3); Red Blood Count 4.48 M/uL (4.7-6.1)
[2020-07-11 18:51] LABS: Basophils # (auto) 0.03 K/uL (0-0.2); Basophils % (auto) 0.6 %; Eosinophils # (auto) 0.05 K/uL (0-0.5); Eosinophils % (auto) 0.9 %; Lymphocytes # (auto) 0.96 K/uL (1.2-3.4); Lymphocytes % (auto) 18.1 %; Monocytes # (auto) 0.35 K/uL (0.11-0.59); Monocytes % (auto) 6.6 %; Neutrophils # (auto) 3.91 K/uL (1.4-6.5); Neutrophils % (auto) 73.8 %; Platelet Estimate Normal (Normal)
--- NOTE | 2020-07-11 18:53 | XRay Report ---
XR chest 1V portable CLINICAL HISTORY: Hypertension COMPARISON STUDY: 06/21/2018 FINDINGS: There are postsurgical changes of midline sternotomy. There is a left-sided A-Port catheter . There is mild elevation right hemidiaphragm. There is no failure. There is no focal pulmonary conso lidation. There are no pleural effusions.[ IMPRESSION: 1. Mild elevation of the right hemidiaphragm 2. No evidence of focal pulmonary consolidation. No evidence of failure. ACT 112: Negative or not required by law. Electronically signed by: Neymar Olivera M.D. 07/11/2020 6:52 PM
[2020-07-11 18:54] LABS: Albumin Globulin Ratio 1.2 (0.9-2); Alkaline Phosphatase 70 U/L (45-117); Globulin 2.7 gm/dl (2.5-4.0); Troponin I < 0.015 ng/ml (0-0.045)
[2020-07-11 18:58] LABS: Lipase 55 U/L (73-393)
--- NOTE | 2020-07-11 19:09 | CT Scan Report ---
CT head/brain wo con CLINICAL HISTORY: Hypertension, dizzy COMPARISON STUDY: MRI performed January 2019 TECHNIQUE: Axial CT of the brain is performed from the vertex to the skull base. IV contrast was not administered for this examination. A dose lowering technique was utilized adhering to the principles of ALARA. CT DOSE: 614.27 mGy.cm FINDINGS: No intra or extra-axial mass lesions are visualized. There is no CT evidence of acute cortical infarc tion. There is no evidence of midline shift. There is no acute hemorrhage. No calvarial fractures ar e visualized. There are minor white matter hypodensities likely on a small vessel basis. There is no evidence of pathologic ventricular dilatation. There is mild bilateral maxillary sinus mucosal thickening. IMPRESSION: No acute intracranial findings ACT 112: Negative or not required by law. Electronically signed by: Neymar Olievra M.D. 07/11/2020 7:08 PM
[2020-07-11] MEDS ORDERED: LORazepam 0.5 MG/1 ML VIAL IV STA (19:23)
[2020-07-11] MEDS ORDERED: hydrALAZINE HCL 20 MG/ML VIAL IV ONE (19:29)
[2020-07-11] MEDS ORDERED: ISOSORBIDE MONONITRATE 20 MG TAB PO STA (20:46)
[2020-07-11] MEDS ORDERED: LOSARTAN POTASSIUM 25 MG TAB PO STA (20:46)
--- NOTE | 2020-07-11 20:47 | History & Physical Report ---
Date of Service July 11, 2020 Assessment & Plan (1) Dizziness: 79-year-old male past medical history significant for CAD status post CABG, DM 2 on oral therapy, CLL, CKD stage III, hypertension, hyperlipidemia, depression, recent surgical repair of left ankle fracture 3 weeks ago admitted for generalized weakness and dizziness and noted to have bradycardia to high 40s. Bradycardia: Patient reports symptoms of dizziness and generalized weakness for 1 day, did not take his home antihypertensive medications today. On arrival with heart rate 49, with improvement to 54 without intervention. EKG shows sinus bradycardia with first-degree AV block. Reports that he does feel better at this time with regard to his dizziness, though description of dizziness sounds somewhat consistent with BPPV given that it occurs with turning of the head and is described as "room spinning around him". Will hold carvedilol. Telemetry for continuous cardiac monitoring. Generalized weakness: Patient endorses generalized weakness for several weeks which acutely worsened today. No findings on exam, imaging, lab work that would suggest infection. CT head without findings suggestive of acute infarct. Patient does admit several falls of the last several months due to description of weakness, including the one that caused his left ankle fracture. Patient would benefit from PT/OT while admitted to ensure patient is stable on his feet and safe for discharge home. DM2: Patient is on repaglinide 4 mg 3 times daily at home. Does endorse that his sugars have been poorly controlled, running in the 160s despite his medication. Hemoglobin A1c ordered with morning labs. Hold home oral medications, SSI while admitted. CKD stage III: Over the last several months patient has had a baseline creatinine of 2.3. Creatinine today 1.6, patient does endorse having decreased dose of ibrutinib which could account for the decreasing creatinine. No intervention at this time. HTN/CAD/HLD: History of, holding carvedilol due to bradycardia. Continue isosorbide mononitrate, losartan, furosemide. Patient has a history of CAD status post CABG, though not currently on aspirin daily therapy. Medication is not listed on allergy list, and patient does not recall having taken baby aspirin in the past. Patient is not on a statin due to adverse effect of joint pain. Defer to PCP regarding other lipidlowering medications for secondary risk prevention. CLL: History of, continue home ibrutinib dose. CODE STATUS: Full code FEN/GI: DM2, heart healthy DVT prophylaxis: Heparin 5000 units SQ every 12 hours Dispo: Telemetry given bradycardia and symptoms of dizziness for continuous cardiac monitoring. (2) Generalized weakness: (3) Bradycardia: (4) Chronic kidney disease, stage III (moderate): (5) CLL (chronic lymphocytic leukemia): (6) Depression: (7) Type II diabetes mellitus: (8) Coronary artery disease: (9) Hyperlipidemia: History of Present Illness Chief Complaint: Dizziness, weakness Primary Care Provider: Linwood Alberto MD 79-year-old male past medical history significant for CAD status post CABG, DM 2 on oral therapy, CLL, CKD stage III, hypertension, hyperlipidemia, depression, recent surgical repair of left ankle fracture 3 weeks ago presented to the ER for worsening generalized weakness and dizziness x1 day. Endorses some associ ated nausea, no headache, shortness of breath, chest pain, abdominal pain, recent fevers or chills. Reports that the dizziness comes on when he changes positions and turns his head in different directions. Reports that he has had some generalized weakness over the last several months, which has resulted in several falls including the one during which she fractured his left ankle several weeks ago requiring surgical fixation. He reports often feeling "unsteady on his feet and weak". States that on waking this morning his weakness and dizziness was worse which is what prompted him to not take any of his home medications for hypertension, and when he continued to feel unwell he decided to come to the ER. He reports that his appetite, fluid intake have been normal until today when he felt nauseous. In the ER patient was noted to have a heart rate of 49 which improved without intervention to about 54, EKG showed sinus bradycardia with first-degree AV block, creatinine 1.66 (decreased from baseline over last several months of ~2.3). CT head performed which showed no acute intracranial findings. Chest x- ray without findings suggestive of pneumonia or acute heart failure. On my interview patient reports feeling slightly better at heart rate mid 50s, still with dizziness upon turning his head and changing positions. Allergies Allergy/AdvReac Type Severity Reaction Status Date / Time Iodinated Contrast Media Allergy Intermediate Hives Verified 06/18/20 15:58 tetracycline Allergy Intermediate SWELLING Verified 06/18/20 15:58 OF GENITALS Cgimbqj-Nvp-Pxe Reductase AdvReac Mild JOINT PAIN Verified 06/18/20 15:58 Inhibitor Home Medications Medication Instructions Recorded Confirmed Type cholecalciferol (vitamin D3) 5,000 unit PO DAILY 06/10/18 07/11/20 History [Vitamin D3] citalopram 20 mg PO QPM 06/10/18 07/11/20 History coQ10 (ubiquinol) 200 mg PO DAILY 06/10/18 07/11/20 History desonide 1 applic TOPICAL QID PRN 06/10/18 07/11/20 History glucosamine-chondroitin 1 cap PO BID 06/10/18 07/11/20 History ketoconazole 1 applic TOPICAL DAILY PRN 06/10/18 07/11/20 History magnesium oxide 250 mg PO DAILY 06/10/18 07/11/20 History multivitamin 1 tab PO DAILY 06/10/18 07/11/20 History nitroglycerin 1 tab SUBLINGUAL UD PRN 06/10/18 07/11/20 History omega 3-pau-opf-fish oil [Fish Oil] 1 cap PO DAILY 06/10/18 07/11/20 History repaglinide [Prandin] 4 mg PO TID 06/10/18 07/11/20 History tamsulosin 0.4 mg PO QPM 06/10/18 07/11/20 History ondansetron HCl 8 mg PO UD PRN 06/21/18 07/11/20 History clobetasol 0.05 % scalp solution 1 appln TOPICAL PRN ml 02/16/19 07/11/20 History fluocinonide 0.05 % topical 1 appln TOPICAL BID PRN ml 02/16/19 07/11/20 History solution carvedilol 6.25 mg tablet 6.25 mg PO BID 12/04/19 07/11/20 History furosemide 20 mg tablet 20 mg PO DAILY tab 03/24/20 07/11/20 History isosorbide mononitrate 30 mg 30 mg PO DAILY 03/24/20 07/11/20 History tablet,extended release 24 hr losartan 100 mg tablet 50 mg PO DAILY tab 03/24/20 07/11/20 History ascorbic acid (vitamin C) [Vitamin 500 mg PO Q OTHER DAY 06/18/20 07/11/20 History C] ferrous sulfate 325 mg PO Q OTHER DAY 06/18/20 07/11/20 History ibrutinib 140 mg PO DAILY 06/18/20 07/11/20 History terbinafine HCl 0 mg PO DAILY PRN 06/18/20 07/11/20 History Past Med/Surg History Medical History (Updated 07/11/20 @ 22:44 by Mikaela Raza DO) Anemia BPH (benign prostatic hyperplasia) Cancer SKIN CANCER Chronic kidney disease, stage III (moderate) CLL (chronic lymphocytic leukemia) Depression Diabetes mellitus, type 2 Diverticulitis PERFORATED COLON Gout Hyperlipidemia Hypertension Myocardial Infarction 1997 Peripheral neuropathy Sleep apnea NO DEVICE Vitamin D deficiency Surgical History History of adenoidectomy History of bowel resection WITH ILEOSTOMY, 2/2 PERFORATED DIVERTICULUM History of cardiac cath 1997 (NO STENTS) 2015 (NO STENTS) History of cataract surgery History of coronary artery bypass graft 1999 ([facility]) GARCIA to LAD with segment of left radial artery placed as a Y graft to Dx, free L radial artery to OM1 and a free sequential L radial artery to PDA. History of herniorrhaphy History of nasal septoplasty History of reversal of ileostomy History of tonsillectomy History of tooth extraction History of uvulopalatopharyngoplasty Family History Grandfather (Paternal) Family history of diabetes mellitus Son No problems noted. Sister Family history of diabetes mellitus Brother Family history of diabetes mellitus Family hx of colon cancer Social History Smoking Status: Never smoker Second Hand Exposure: No; Hx Alcohol Use: No Hx Substance Use: No Preferred Language: Algerian Communication Ability: Effective Visual Impairment: No Limitations Hearing Ability: Normal Sueding Machine Operator Required: No Beliefs That Will Affect Care: None marital status: Current Living Situation: Spouse Feels Safe at Home: Yes Safety Concerns: Feels Safe At This Time Assistive Devices: Glasses, Hearing Aid - Bilateral, Walker and Wheelchair Assistive Devices Comment: had been using a wheelchair but recently started using a walker Review of Systems Review of Systems: All systems reviewed & are unremarkable except as noted in HPI & below Constitutional: + malaise; no fever and no chills Respiratory: no cough and no dyspnea Cardiovascular: no chest pain, no palpitations and no edema Gastrointestinal: + nausea; no abdominal pain, no vomiting, no constipation and no diarrhea/loose stools Physical Exam Constitutional: WD/WN, vitals as above Eyes: PERRL, conjunctivae normal, anicteric sclerae ENMT: external ear and nose normal, oropharynx normal Neck: normal visual inspection Respiratory: normal respiratory effort, lungs clear to auscultation Cardiovascular: RRR, no murmur, no edema Rate/Rhythm: regular rhythm and + bradycardic Heart Sounds: no murmur Extremities: no edema Gastrointestinal (Abdomen): normal bowel sounds, soft, nontender, no hepatosplenomegaly Musculoskeletal: no cyanosis or clubbing, extremities motor strength 5/5 Skin: no rashes, warm and dry Neurologic: AAOx3, normal speech. PERRLA, EOMI, no nystagmus. Able to reproduce dizziness sensation with having patient turned head sharply to the left, and sharply to the right. Bilateral UE, LE, and face without sensory or motor deficits. No tremor. Psychiatric: A+Ox3, euthymic affect Results & Data Results & Data ([facility]) Vital Signs (Past 12 Hours) Vital Signs Temp Pulse Pulse Resp BP BP Pulse Ox 07/11/20 20:06 61 16 183/64 H 96 07/11/20 19:27 52 L 20 208/58 H 07/11/20 18:30 49 L 15 93 07/11/20 18:26 98 07/11/20 18:22 49 L 15 07/11/20 18:15 54 L 15 180/67 H 97 07/11/20 18:00 51 L 16 94 07/11/20 17:51 58 L 20 98 07/11/20 17:27 36.9 C 58 L 18 223/82 H 99 Supervising Physician Co-Signing Physician Notes Patient seen and examined, chart reviewed, case discussed with Dr. Raza and I agree with her assessment and plan as above. Briefly, patient is a 79yo male presenting with episodic dizziness and near syncope. He denies CP, loss of consciousness, head trauma. Bradycardic and hypertensive on arrival Unremarkable physical exam. Patient is resting comfortably Left ankle with dressing in place HEENT - NC/AT, PERRL, EOMI, No bruits, no JVT Heart - +S1/S2, regular, bradycardic Lungs - CTA Abd - +BS, soft, NT/ND Labs and images reviewed. Electrolytes WNL. EKG with SB with 1st degree AV block, slightly widened QRS Assessment/Plan: Telemetry monitoring - ?arrhythmia, conduction abnormality may be contributing to symptoms. If unrevealing may consider Meclizine PT/OT evaluation for gait assessment appreciated Remainder of plan as above Resident Activity Tracking Resident Involvement: Resident Care Provided Care Provided: Adult Hospital Medicine
[2020-07-11] MEDS ORDERED: ACETAMINOPHEN 325 MG TAB PO PRN (22:05)
[2020-07-11] MEDS ORDERED: POLYETHYLENE (MIRALAX) 17 GM PACK PO PRN (22:05)
[2020-07-11] MEDS ORDERED: DEXTROSE 50% 50 ML SYRINGE IV PRN (22:05)
[2020-07-11] MEDS ORDERED: NITROGLYCERIN SL 0.4 MG/TAB TAB SL PRN (22:05)
[2020-07-11] MEDS ORDERED: ONDANSETRON INJ 2 MG/ML 2 ML VIAL IV PRN (22:05)
[2020-07-11] MEDS ORDERED: GLUCOSE 10 TABS/TUBE PO PRN (22:05)
[2020-07-11] MEDS ORDERED: DESONIDE CR 15 GM TUBE EXT PRN (22:05)
[2020-07-11] MEDS ORDERED: GLUCOSE 40% GEL 15 GM TUBE PO PRN (22:05)
[2020-07-11] MEDS ORDERED: CARBOHYDRATES FOR HYPOGLYCEMIA PO PRN (22:05)
[2020-07-11] MEDS ORDERED: GLUCAGON FOR INJ 1 MG VIAL SQ PRN (22:05)
[2020-07-11] MEDS: CITALOPRAM 20 MG TAB PO SCH (23:36)
[2020-07-11] MEDS: TAMSULOSIN HCL 0.4 MG CAP PO SCH (23:36)
[2020-07-11] MEDS: INSULIN ASPART 100 UNITS/ML 3 ML PEN SC SCH (23:47)
--- NOTE | 2020-07-12 02:43 | Billing Data ---
Date of Service July 11, 2020 Coding Level of Care Code 67540 Initial Inpt Care Lvl 2
[2020-07-12 06:44] LABS: Appearance Urine Clear (Clear); Bacteria Urine Automated 1+ (Negative); Blood Urine Negative (Negative); Color Urine Dark Yellow; Glucose Urine UA Negative (Negative); Ketones Urine Trace (Negative); Leukocyte Esterase Urine Trace (Negative); Nitrite Urine Negative (Negative); Protein Urine 2+ (Negative); RBC Urine Automated 0-4 /hpf (0-4); Urobilinogen Urine Negative (Negative)
[2020-07-12 06:46] LABS: Bilirubin Urine 1+ (Negative)
[2020-07-12 08:01] LABS: Estimated Average Glucose 143 mg/dl; Hemoglobin A1C 6.6 % (4.5-5.6)
[2020-07-12] MEDS: INSULIN ASPART 100 UNITS/ML 3 ML PEN SC SCH ×4 (08:31→21:37)
[2020-07-12] MEDS: LOSARTAN POTASSIUM 50 MG TAB PO SCH (08:34)
[2020-07-12] MEDS: MULTIVITAMIN TAB PO SCH (08:34)
[2020-07-12] MEDS: ISOSORBIDE MONO EXTENDED REL 30 MG TABCR PO SCH (08:34)
[2020-07-12] MEDS: FUROSEMIDE 20 MG TAB PO SCH (08:34)
--- NOTE | 2020-07-12 09:03 | Electrocardiogram Report ---
Test Reason : Blood Pressure : / mmHG Vent. Rate : 051 BPM Atrial Rate : 051 BPM P-R Int : 234 ms QRS Dur : 130 ms QT Int : 490 ms P-R-T Axes : 051 -50 058 degrees QTc Int : 451 ms Sinus bradycardia with 1st degree A-V block Left anterior fascicular block Right bundle branch block Old Septal infarct Abnormal ECG When compared with ECG of 21-JUN-2018 17:26, NM interval has increased Vent. rate has decreased BY 37 BPM Confirmed by Tarun Ortega ([id number]) on 07/12/2020 9:02:56 AM Referred By: Vane Diamond Confirmed By:Tarun Otrega
[2020-07-12] MEDS: HEPARIN SOD 5,000 UNIT/0.5 ML VIAL SQ SCH ×3 (09:35→21:45)
--- NOTE | 2020-07-12 10:34 | Hospitalist Progress Note ---
Date of Service July 12, 2020 Assessment & Plan (1) Dizziness: 79-year-old male past medical history significant for CAD status post CABG, DM 2 on oral therapy, CLL, CKD stage III, hypertension, hyperlipidemia, depression, recent surgical repair of left ankle fracture 3 weeks ago admitted for generalized weakness and dizziness and noted to have bradycardia to high 40s. Dizziness in addition to Generalized Weakness -Suspect multifactorial including Orthostatic Hypotension and BPPV. Less likely bradycardia -Orthostatic vitals with >30mmHg systolic drop and increased dizziness and nausea -CT head without findings suggestive of acute infarct -PO roughly 300ml today -500ml NSS given, will continue IVF with LR 80ml/hr -PT/OT ordered, OT had attempted to see patient today, though became nauseous and unable to participate. Orthostatic hypotension -poor PO intake over 1 wk due to nausea while on furosemide. -Holding furosemide -Also on flomax. -IV hydration. Follow. Poor oral intake/nausea x 1 wk/vomiting 07/12 -Received a dose of zofran. -Unclear etiology. follow. consider dietary and GI consult. Bradycardia -On admission with HR 49 -EKG showing sinus sara w/ first-degree AV block -On Carvedilol which patient states was started 6 months ago by his industrial therapist for HTN -Will continue to hold carvedilol at this time as may be contributing to patients dizziness -HR improved to 60-70's today DM2: -Patient is on repaglinide 4 mg 3 times daily at home, hold while here -HgbA1C 6.6 -SSI while admitted. CKD stage III: -Over the last several months patient has had a baseline creatinine of 2.3. -Admission Creatinine 1.6 -Continue to monitor -IVF as above HTN/CAD/HLD: -Hx CABG x5 in 1999 -EF 70% from echo 03/2020 -Was on Plavix and ASA in past -Notes he stopped ASA when beginning Ibrutinib therapy Feb 2020 for his CLL -Continue home Isosorbide mononitrate -Continue home Losartan -Will hold AM lasix while improving patients fluid balance -Strict I/O -Hold Carvedilol due to bradycardia -No longer on statin due to myalgias and not on Niaspan due to rash CLL: -Diagnosed in 2011 -Started on Ibrutinib in Feb 2020 -Continue home Ibrutinib CODE STATUS: Full code FEN/GI: DM2, heart healthy, LR 80ml/hr DVT prophylaxis: Heparin 5000 units SQ every 12 hours Dispo: Telemetry given bradycardia and symptoms of dizziness for continuous cardiac monitoring. Admission and Anticipated Discharge Date Admission Date: July 11, 2020 Supervising Physician Co-Signing Physician Notes Resident Physician Supervision Note: I independently interviewed and examined the patient and verified the adams history and physical, reviewed labs and image studies, discussed the case with the resident Dr. Jennings and agree with the findings and care plan. Subjective Patient evaluated at the bedside this AM. He was noting that he was still having slight nausea, though just received antiemetics. He notes that his weakness has improved since overnight as well as his dizziness, though still feels as though the room spins whenever he turns his head side to side. Patient does note that for the past 3 weeks since his L ankle fracture and repair, he has been having increasingly worsening PO intake and over all increase in weakness due to limited mobility. Patient noted that he was taking in roughly 16oz of fluid daily. Currently patient denies any fever, chills, SOB, chest pain, abdominal pain. Review of Systems Review of Systems: All systems reviewed & are unremarkable except as noted in Subjective Physical Exam Constitutional: well developed and cooperative; no acute distress and not ill appearing Eyes: PERRL, conjunctivae normal, anicteric sclerae ENMT: external ear and nose normal, oropharynx normal Respiratory: normal respiratory effort, lungs clear to auscultation Cardiovascular: RRR, no murmur, no edema Gastrointestinal (Abdomen): normal bowel sounds, soft, nontender, no hepatosplenomegaly Musculoskeletal: Head/Neck/Chest: normocephalic and head atraumatic Neurologic: PERRL, EOMI, accommodation nl, no face palsy, no dysarthria awake; not confused and not obtunded Psychiatric: A+Ox3, euthymic affect Results & Data Results & Data ([facility]) Vital Signs (Past 12 Hours) Vital Signs Temp Pulse Pulse Resp BP Pulse Ox 07/12/20 08:10 36.5 C 58 L 18 131/59 L 98 07/12/20 07:00 59 L 07/12/20 04:00 36.8 C 59 L 18 120/57 L 95 07/12/20 00:03 36.5 C 91 H 16 125/83 93 Resident Activity Tracking Resident Involvement: Resident Care Provided Care Provided: Adult [facility] Medicine
[2020-07-12] MEDS ORDERED: SODIUM CHLORIDE 0.9% 500 ML IV SCH (11:30)
[2020-07-12] MEDS: LACTATED RINGER'S 1,000 ML IV SCH (19:20)
[2020-07-12] MEDS: CITALOPRAM 20 MG TAB PO SCH (21:36)
[2020-07-12] MEDS: TAMSULOSIN HCL 0.4 MG CAP PO SCH (21:36)
[2020-07-13 06:02] LABS: Basophils # (auto) 0.02 K/uL (0-0.2); Basophils % (auto) 0.5 %; Eosinophils # (auto) 0.05 K/uL (0-0.5); Eosinophils % (auto) 1.2 %; Hemoglobin 11.9 g/dL (14.0-18.0); Lymphocytes # (auto) 0.73 K/uL (1.2-3.4); Lymphocytes % (auto) 17.9 %; Mean Corpuscular Hemoglobin 28.6 pg (25-34); Mean Corpuscular Hgb Conc 32.2 g/dL (32-36); Mean Corpuscular Volume 88.9 fL (80-100); Mean Platelet Volume 11.9 fL (7.4-10.4); Monocytes # (auto) 0.39 K/uL (0.11-0.59); Monocytes % (auto) 9.6 %; Neutrophils # (auto) 2.88 K/uL (1.4-6.5); Neutrophils % (auto) 70.8 %; Platelet Count 104 K/uL (130-400); RDW Coefficient of Variation 14.2 % (11.5-14.5); Red Blood Count 4.16 M/uL (4.7-6.1); White Blood Count 4.07 K/uL (4.8-10.8)
[2020-07-13 06:36] LABS: Calcium 8.7 mg/dl (8.5-10.1); Creatinine Clr Calc Pharmacy 40.1 ml/min; Est GFR (African American) 36.9; Est GFR (Non-African American) 31.8; Potassium 3.9 mmol/L (3.5-5.1)
[2020-07-13] MEDS: LACTATED RINGER'S 1,000 ML IV SCH (07:48)
[2020-07-13] MEDS: FERROUS SULFATE 325 MG TAB PO SCH (07:53)
[2020-07-13] MEDS: ASCORBIC ACID 500 MG TAB PO SCH (07:54)
[2020-07-13] MEDS: INSULIN ASPART 100 UNITS/ML 3 ML PEN SC SCH ×4 (07:54→20:29)
[2020-07-13] MEDS: MULTIVITAMIN TAB PO SCH (07:54)
[2020-07-13] MEDS: HEPARIN SOD 5,000 UNIT/0.5 ML VIAL SQ SCH ×3 (07:56→20:37)
--- NOTE | 2020-07-13 09:54 | Hospitalist Progress Note ---
Date of Service July 13, 2020 Assessment & Plan (1) Dizziness: 79-year-old male past medical history significant for CAD status post CABG, DM 2 on oral therapy, CLL, CKD stage III, hypertension, hyperlipidemia, depression, recent surgical repair of left ankle fracture 3 weeks ago admitted for generalized weakness and dizziness and noted to have bradycardia to high 40s. Dizziness in addition to Generalized Weakness -Suspect multifactorial including Orthostatic Hypotension and BPPV. Less likely bradycardia -Orthostatic vitals with >30mmHg systolic drop and increased dizziness and nausea -CT head without findings suggestive of acute infarct -PO intake increasing, Nausea improving as dizziness improving. -500ml NSS given 07/12/20, will continue IVF with LR 80ml/hr - as PO intake continues to improve can consider DC IVF. -PT/OT ordered Orthostatic hypotension -poor PO intake x3 weeks in addition to 1 week of nausea, while on furosemide -Continue holding lasix -Also on flomax. -Continue IV hydration. Follow. Poor oral intake/nausea x 1 wk/vomiting 07/12 -Zofran PRN Nausea -Noting 16oz PO intake of fluids the past 3 weeks since his L ankle fx and repair due to difficulties leaving bed. -If continues to worsen consider Dietary and GI consults. Bradycardia -On admission with HR 49 -EKG showing sinus sara w/ first-degree AV block -On Carvedilol which patient states was started 6 months ago by his food service agent for HTN -Will continue to hold carvedilol at this time as may be contributing to patients dizziness, though more likely from orthostatic hypotension. -HR stable at 60-70's DM2: -Patient is on repaglinide 4 mg 3 times daily at home, hold while here -HgbA1C 6.6 -SSI while admitted. CKD stage III: -Over the last several months patient has had a baseline creatinine of 2.3. -Admission Creatinine 1.6 -Continue to monitor -IVF as above HTN/CAD/HLD: -Hx CABG x5 in 1999 -EF 70% from echo 03/2020 -Was on Plavix and ASA in past -Notes he stopped ASA when beginning Ibrutinib therapy Feb 2020 for his CLL -Continue home Isosorbide mononitrate -Continue home Losartan -Continue holding home Lasix -Strict I/O -Hold Carvedilol due to bradycardia -No longer on statin due to myalgias and not on Niaspan due to rash CLL: -Diagnosed in 2011 -Started on Ibrutinib in Feb 2020 -Continue home Ibrutinib CODE STATUS: Full code FEN/GI: DM2, heart healthy, LR 80ml/hr DVT prophylaxis: Heparin 5000 units SQ every 12 hours Dispo: Telemetry given bradycardia and symptoms of dizziness for continuous cardiac monitoring. Admission and Anticipated Discharge Date Admission Date: July 11, 2020 Supervising Physician Co-Signing Physician Notes Resident Physician Supervision Note: I independently interviewed and examined the patient and verified the adams history and physical, reviewed labs and image studies, discussed the case with the resident Dr. Jennings and agree with the findings and care plan. Patient had a dizzi spell and was noted to have 2nd degree block later morning while PT was working with him on Thai maneuver. cardiology consulted - to assess in am. continue to hold carvedilol add meclizine. continue hydration for hypovolemia induced orthostasis due to poor intake. encourage oral intake. Subjective Patient examined while in the bed this AM. Noting that his nausea and dizziness are improving, but still notices some dizziness while sitting up. Notes that he was able to drink more overnight, roughly 1L. Still has concerns in regards to not being able to take enough PO fluids throughout the day. Denies any fever, chills, SOB, chest pain, abdominal pain, dysuria. Review of Systems Review of Systems: All systems reviewed & are unremarkable except as noted in Subjective Physical Exam Constitutional: well developed and cooperative; no acute distress and not ill appearing Eyes: PERRL, conjunctivae normal, anicteric sclerae ENMT: external ear and nose normal, oropharynx normal Respiratory: normal respiratory effort, lungs clear to auscultation Cardiovascular: RRR, no murmur, no edema Gastrointestinal (Abdomen): normal bowel sounds, soft, nontender, no hepatosplenomegaly Musculoskeletal: Head/Neck/Chest: normocephalic and head atraumatic Neurologic: PERRL, EOMI, accommodation nl, no face palsy, no dysarthria awake; not confused and not obtunded Psychiatric: A+Ox3, euthymic affect Results & Data Results & Data ([facility]) Vital Signs (Past 12 Hours) Vital Signs Temp Pulse Pulse Resp BP Pulse Ox 07/13/20 09:18 61 07/13/20 08:00 37.0 C 76 16 97/51 L 95 07/13/20 04:42 36.7 C 66 16 118/64 95 07/13/20 00:00 36.8 C 116 H 18 177/79 H 91 07/12/20 23:18 61 Resident Activity Tracking Resident Involvement: Resident Care Provided Care Provided: Adult Hospital Medicine
[2020-07-13] MEDS: LOSARTAN POTASSIUM 50 MG TAB PO SCH (11:36)
[2020-07-13] MEDS: ISOSORBIDE MONO EXTENDED REL 30 MG TABCR PO SCH (11:36)
[2020-07-13] MEDS ORDERED: MECLIZINE HCL 25 MG TAB PO PRN (11:38)
--- NOTE | 2020-07-13 12:30 | Electrocardiogram Report ---
Test Reason : Blood Pressure : / mmHG Vent. Rate : 065 BPM Atrial Rate : 065 BPM P-R Int : 000 ms QRS Dur : 132 ms QT Int : 448 ms P-R-T Axes : 000 -55 091 degrees QTc Int : 465 ms Sinus rhythm with 1st degree A-V block Right bundle branch block Left anterior fascicular block Septal infarct , age undetermined Abnormal ECG When compared with ECG of 11-JUL-2020 18:16, No significant change Confirmed by Rocky Carvajal ([id number]) on 07/13/2020 12:30:09 PM Referred By: Vane Diamond Confirmed By:Rocky Carvajal
[2020-07-13] MEDS: CITALOPRAM 20 MG TAB PO SCH (20:36)
[2020-07-13] MEDS: IBRUTINIB PO SCH (20:36)
[2020-07-13] MEDS: TAMSULOSIN HCL 0.4 MG CAP PO SCH (20:37)
[2020-07-14 05:41] LABS: Hematocrit (blood only) 37.7 % (42-52); Hemoglobin 12.2 g/dL (14.0-18.0); Mean Corpuscular Hemoglobin 28.4 pg (25-34); Mean Corpuscular Hgb Conc 32.4 g/dL (32-36); Mean Corpuscular Volume 87.9 fL (80-100); RDW Coefficient of Variation 14.2 % (11.5-14.5); RDW Standard Deviation 45.1 fL (36.4-46.3); Red Blood Count 4.29 M/uL (4.7-6.1); White Blood Count 3.74 K/uL (4.8-10.8)
[2020-07-14 06:03] LABS: Mean Platelet Volume 11.5 fL (7.4-10.4); Platelet Count 96 K/uL (130-400)
[2020-07-14 06:04] LABS: Basophils # (auto) 0.02 K/uL (0-0.2); Basophils % (auto) 0.5 %; Eosinophils # (auto) 0.06 K/uL (0-0.5); Eosinophils % (auto) 1.6 %; Immature Granulocytes # (auto) 0.01 K/uL (0.00-0.02); Immature Granulocytes % (auto) 0.3 %; Lymphocytes # (auto) 0.55 K/uL (1.2-3.4); Lymphocytes % (auto) 14.7 %; Monocytes # (auto) 0.42 K/uL (0.11-0.59); Monocytes % (auto) 11.2 %; Neutrophils # (auto) 2.68 K/uL (1.4-6.5); Neutrophils % (auto) 71.7 %; Platelet Estimate Decreased (Normal)
[2020-07-14 06:14] LABS: BUN Creatinine Ratio 13.5 (10-20); Calcium 8.8 mg/dl (8.5-10.1); Creatinine Clr Calc Pharmacy 47.3 ml/min; Est GFR (African American) 45.1; Est GFR (Non-African American) 38.9; Potassium 3.8 mmol/L (3.5-5.1)
[2020-07-14] MEDS: INSULIN ASPART 100 UNITS/ML 3 ML PEN SC SCH ×4 (08:25→20:23)
[2020-07-14] MEDS: LOSARTAN POTASSIUM 50 MG TAB PO SCH (08:25)
[2020-07-14] MEDS: ISOSORBIDE MONO EXTENDED REL 30 MG TABCR PO SCH ×2 (08:25→20:23)
[2020-07-14] MEDS: HEPARIN SOD 5,000 UNIT/0.5 ML VIAL SQ SCH ×2 (08:26→20:22)
[2020-07-14] MEDS: MULTIVITAMIN TAB PO SCH (08:27)
[2020-07-14] MEDS ORDERED: MECLIZINE HCL 25 MG TAB PO STA (08:54)
--- NOTE | 2020-07-14 09:46 | Hospitalist Progress Note ---
Date of Service July 14, 2020 Assessment & Plan (1) Dizziness: 79-year-old male past medical history significant for CAD status post CABG, DM 2 on oral therapy, CLL, CKD stage III, hypertension, hyperlipidemia, depression, recent surgical repair of left ankle fracture 3 weeks ago admitted for generalized weakness and dizziness and noted to have bradycardia to high 40s. Dizziness in addition to Generalized Weakness -Suspect multifactorial including Orthostatic Hypotension and BPPV. Less likely bradycardia -CT head without findings suggestive of acute infarct Orthostatic hypotension -poor PO intake x3 weeks in addition to 1 week of nausea, while on furosemide -Also on flomax. -Orthostatic vitals with >30mmHg systolic drop and increased dizziness and nausea -PO intake increasing, -500ml NSS given 07/12/20, IVF with LR 80ml/hr - DC IVF as PO intake improved -Will resume home lasix in AM -Will continue to monitor for return of orthostatic hypotension with resumption of lasix and increase in Imdur and addition of Hydralazine. Vertigo - 2nd degree AV block associated with vertigo -Patient had worsening dizzy spell on 07/13/20 during Thai maneuver and was noted to have 2nd degree heart block correlating at that time -Overnight has not had anymore episodes of 2nd degree heart block -Cardiology consulted -Recommending event recorder upon discharge and outpatient f/u with cardiology -Due to HTN Imdur increased to 30mg BID and added Hydralazine 10mg TID -Will continue Meclizine 25mg BID PRN dizziness in hopes to improve vertigo. UTI -Though patient denying urinary symptoms, unsure if symptoms of nausea and vertigo secondary to underlying infection. -Clean catch with >100K CFU bacteria growing Enterococcus Faecalis -Will treat with Amoxicillin 500mg TID x 5 days -Will add on probiotic Poor oral intake/nausea x 1 wk/vomiting 07/12 - Resolving -nausea ? sec to vertigo -Nausea improving as dizziness improving. -Zofran PRN Nausea -Noting 16oz PO intake of fluids the past 3 weeks since his L ankle fx and repair due to difficulties leaving bed. -If continues to worsen consider Dietary and GI consults. Bradycardia - Resolved -On admission with HR 49 -EKG showing sinus sara w/ first-degree AV block -On Carvedilol which patient states was started 6 months ago by his credit clerk for HTN -Carvedilol held initially -HR stable at 60-70's - Will review with cardiology and resume. likely not contributing to persentation DM2: -Patient is on repaglinide 4 mg 3 times daily at home, hold while here -HgbA1C 6.6 -SSI while admitted. CKD stage III: -Over the last several months patient has had a baseline creatinine of 2.3. -Admission Creatinine 1.6 -Continue to monitor HTN/CAD/HLD: -Hx CABG x5 in 1999 -EF 70% from echo 03/2020 -Was on Plavix and ASA in past -Notes he stopped ASA when beginning Ibrutinib therapy Feb 2020 for his CLL -Continue home Isosorbide mononitrate, increase to BID dosing -Continue home Losartan -Resume home Lasix in AM -Strict I/O -Holding Carvedilol due to bradycardia -No longer on statin due to myalgias and not on Niaspan due to rash CLL: -Diagnosed in 2011 -Started on Ibrutinib in Feb 2020 -Continue home Ibrutinib CODE STATUS: Full code FEN/GI: DM2, heart healthy, DVT prophylaxis: Heparin 5000 units SQ every 12 hours Dispo: Telemetry given bradycardia and symptoms of dizziness for continuous cardiac monitoring. Once able to participate with PT/OT, would expect DC to SNF or home with home therapy Admission and Anticipated Discharge Date Admission Date: July 11, 2020 Supervising Physician Co-Signing Physician Notes Resident Physician Supervision Note: I independently interviewed and examined the patient and verified the adams history and physical, reviewed labs and image studies, discussed the case with the resident Dr. Jennings and agree with the findings and care plan. Subjective Patient evaluated at the bedside. Noting slight nausea this morning, though states his dizziness improved. Has been trying to take more in more fluids by mouth. Discussed in regards to urinary symptoms this morning to which patient denied dysuria, increase frequency, and difficulty initiating stream. Denies any fever, chills, SOB, chest pain, abdominal pain. Review of Systems Review of Systems: All systems reviewed & are unremarkable except as noted in Subjective Physical Exam Constitutional: well developed and cooperative; no acute distress and not ill appearing Eyes: PERRL, conjunctivae normal, anicteric sclerae ENMT: external ear and nose normal, oropharynx normal Respiratory: normal respiratory effort, lungs clear to auscultation Cardiovascular: RRR, no murmur, no edema Gastrointestinal (Abdomen): normal bowel sounds, soft, nontender, no hepatosplenomegaly Musculoskeletal: Head/Neck/Chest: normocephalic and head atraumatic Neurologic: PERRL, EOMI, accommodation nl, no face palsy, no dysarthria awake; not confused and not obtunded Psychiatric: A+Ox3, euthymic affect Results & Data Results & Data ([facility]) Vital Signs (Past 12 Hours) Vital Signs Temp Pulse Resp BP BP Pulse Ox 07/14/20 07:27 37.1 C 67 20 204/79 H 97 07/14/20 04:34 36.7 C 55 L 18 175/74 H 97 07/14/20 00:16 37.4 C 65 18 194/71 H 96 Resident Activity Tracking Resident Involvement: Resident Care Provided Care Provided: Adult Hospital Medicine
--- NOTE | 2020-07-14 09:46 | Cardiology Consultation ---
Date of Consultation Eris has had vertigo over the last 4 to 5 days. He describes it is horizontal in nature. Prior to this he denied any orthostatic symptoms he denied any lightheadedness or tunnel vision or family there are curtains coming in over his eyes. His heart rate is chronically low but he denies that he has felt presyncopal or syncopal. He denies any chest pain or chest pressure he notes with nitroglycerin in fact his angina has significantly improved. Here in the hospital he still having some mild vertigo it has improved compared to yesterday. He underwent procedure to try to improve his vertigo symptoms at that time he then went into 2-1 heart block with profound nausea vomiting and vertigo. Since then on the monitor he has had no heart block whatsoever. He does had some blocked PACs and is known to have a trifascicular block. He denies any heart failure symptoms or shortness of breath. In fact as an outpatient he notes that his shortness of breath that improved with nitroglycerin. He has not had any further headaches associated with nitroglycerin. Interestingly his lower extremity edema which she had as an outpatient has resolved. July 14, 2020 History of Present Illness Attending Physician: Char Guevara MD Allergies Allergy/AdvReac Type Severity Reaction Status Date / Time Iodinated Contrast Media Allergy Intermediate Hives Verified 06/18/20 15:58 tetracycline Allergy Intermediate SWELLING Verified 06/18/20 15:58 OF GENITALS Odfjofn-Uij-Aez Reductase AdvReac Mild JOINT PAIN Verified 06/18/20 15:58 Inhibitor Home Medications Medication Instructions Recorded Confirmed Type cholecalciferol (vitamin D3) 5,000 unit PO DAILY 06/10/18 07/11/20 History [Vitamin D3] citalopram 20 mg PO QPM 06/10/18 07/11/20 History coQ10 (ubiquinol) 200 mg PO DAILY 06/10/18 07/11/20 History desonide 1 applic TOPICAL QID PRN 06/10/18 07/11/20 History glucosamine-chondroitin 1 cap PO BID 06/10/18 07/11/20 History ketoconazole 1 applic TOPICAL DAILY PRN 06/10/18 07/11/20 History magnesium oxide 250 mg PO DAILY 06/10/18 07/11/20 History multivitamin 1 tab PO DAILY 06/10/18 07/11/20 History nitroglycerin 1 tab SUBLINGUAL UD PRN 06/10/18 07/11/20 History omega 6-fhd-hcz-fish oil [Fish Oil] 1 cap PO DAILY 06/10/18 07/11/20 History repaglinide [Prandin] 4 mg PO TID 06/10/18 07/11/20 History tamsulosin 0.4 mg PO QPM 06/10/18 07/11/20 History ondansetron HCl 8 mg PO UD PRN 06/21/18 07/11/20 History clobetasol 0.05 % scalp solution 1 appln TOPICAL PRN ml 02/16/19 07/11/20 History fluocinonide 0.05 % topical 1 appln TOPICAL BID PRN ml 02/16/19 07/11/20 History solution carvedilol 6.25 mg tablet 6.25 mg PO BID 12/04/19 07/11/20 History furosemide 20 mg tablet 20 mg PO DAILY tab 03/24/20 07/11/20 History isosorbide mononitrate 30 mg 30 mg PO DAILY 03/24/20 07/11/20 History tablet,extended release 24 hr losartan 100 mg tablet 50 mg PO DAILY tab 03/24/20 07/11/20 History ascorbic acid (vitamin C) [Vitamin 500 mg PO Q OTHER DAY 06/18/20 07/11/20 History C] ferrous sulfate 325 mg PO Q OTHER DAY 06/18/20 07/11/20 History ibrutinib 140 mg PO DAILY 06/18/20 07/11/20 History terbinafine HCl 0 mg PO DAILY PRN 06/18/20 07/11/20 History Patient History Medical History Anemia BPH (benign prostatic hyperplasia) Cancer SKIN CANCER Chronic kidney disease, stage III (moderate) CLL (chronic lymphocytic leukemia) Depression Diabetes mellitus, type 2 Diverticulitis PERFORATED COLON Gout Hyperlipidemia Hypertension Myocardial Infarction 1997 Peripheral neuropathy Sleep apnea NO DEVICE Vitamin D deficiency Surgical History History of adenoidectomy History of bowel resection WITH ILEOSTOMY, 2/2 PERFORATED DIVERTICULUM History of cardiac cath 1997 (NO STENTS) 2015 (NO STENTS) History of cataract surgery History of coronary artery bypass graft 1999 ([facility]) GARCIA to LAD with segment of left radial artery placed as a Y graft to Dx, free L radial artery to OM1 and a free sequential L radial artery to PDA. History of herniorrhaphy History of nasal septoplasty History of reversal of ileostomy History of tonsillectomy History of tooth extraction History of uvulopalatopharyngoplasty Family History Grandfather (Paternal) Family history of diabetes mellitus Son No problems noted. Sister Family history of diabetes mellitus Brother Family history of diabetes mellitus Family hx of colon cancer Social History Smoking Status: Never smoker Second Hand Exposure: No; Hx Alcohol Use: No Hx Substance Use: No Preferred Language: Peruvian Communication Ability: Effective Visual Impairment: No Limitations Hearing Ability: Normal Lathe Tender Required: No Beliefs That Will Affect Care: None marital status: Current Living Situation: Spouse Feels Safe at Home: Yes Safety Concerns: Feels Safe At This Time Assistive Devices: Hearing Aid - Bilateral Assistive Devices Comment: had been using a wheelchair but recently started using a walker Results & Data ([facility]) Vital Signs (Past 12 Hours) Vital Signs Temp Pulse Resp BP BP Pulse Ox 07/14/20 07:27 37.1 C 67 20 204/79 H 97 07/14/20 04:34 36.7 C 55 L 18 175/74 H 97 07/14/20 00:16 37.4 C 65 18 194/71 H 96 is awake alert and oriented x3 he looks his stated age HEENT 2+ carotid upstrokes Lungs: Clear to auscultation bilaterally no rales rhonchi or wheezing Heart: Regular rate and rhythm no appreciable murmurs or rubs Abdomen: Soft nontender distended positive bowel sounds Extremities: No clubbing cyanosis or edema he has a TENS unit on his left ankle Psychiatric: His affect appear appropriate Impressions: 1. Vertigo which is noncardiac 2. 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 2-1 heart block associated with maneuvers for his vertigo 4. Coronary disease status post coronary bypass grafting x5 in 1999 and [facility] 5. Cardiac catheterization in 2016 revealing all of his grafts patent with areas of ischemia including a small OM 2 branch in the proximal RCA 6. Normal echocardiogram 03/22/2020 with an EF in the range of 70% with moderate RV dysfunction 7. hyperlipidemia 8 hypertension 9. CLL 10. Chronic kidney disease with a baseline creatinine of 2.5 11. History of a right carotid bruit without evidence of carotid stenosis 02/2017 We did review the monitor. He has had no further 2-1 heart block. He has had blocked PACs he also has sinus arrhythmia especially with sleep. And with sleep he does have some periods of bradycardia. His 2-1 heart block was related to the procedure he was undergoing and the associated nausea and vertigo and increased vagal tone. I would recommend an event recorder just to make sure were not missing high degree AV block as an outpatient. At least based on the story before his vertigo there is nothing to suggest has been having episodes of symptomatic high degree AV block. His blood pressure is markedly elevated I think some of this is vertigo some of this is being in the hospital but it is much higher than usual as an outpatient. We will double his Imdur which he was supposed to be on 30 mg twice daily and will add hydralazine 10 mg 3 times daily. He has been on hydralazine as an outpatient. We will have to watch for orthostatic symptoms. There is no ischemic changes on his EKG. We will make arrangements for him to have his event recorder placed when he is discharged in the office and we will arrange for follow-up as well. This was discussed with the hospitalist service as well.
[2020-07-14] MEDS: hydrALAZINE 10 MG TAB PO SCH ×3 (11:47→20:20)
[2020-07-14] MEDS: ADVANCED PROBIOTIC 1250 MG CAPSULE PO SCH (11:47)
[2020-07-14] MEDS: AMOXICILLIN 500 MG CAP PO SCH ×2 (11:47→20:20)
[2020-07-14] MEDS: carvediloL 3.125 MG TAB PO SCH (20:21)
[2020-07-14] MEDS: CITALOPRAM 20 MG TAB PO SCH (20:21)
[2020-07-14] MEDS: TAMSULOSIN HCL 0.4 MG CAP PO SCH (20:21)
[2020-07-14] MEDS: IBRUTINIB PO SCH (20:22)
[2020-07-15 06:34] LABS: BUN Creatinine Ratio 14.9 (10-20); Calcium 9.1 mg/dl (8.5-10.1); Creatinine Clr Calc Pharmacy 42.2 ml/min; Est GFR (African American) 39.3; Est GFR (Non-African American) 33.9
--- NOTE | 2020-07-15 07:22 | Hospitalist Progress Note ---
Date of Service July 15, 2020 Assessment & Plan (1) Dizziness: 79-year-old male past medical history significant for CAD status post CABG, DM 2 on oral therapy, CLL, CKD stage III, hypertension, hyperlipidemia, depression, recent surgical repair of left ankle fracture 3 weeks ago admitted for generalized weakness and dizziness and noted to have bradycardia to high 40s. Dizziness in addition to Generalized Weakness Suspect likely secondary to urinary tract infection and resulting symptoms vitals positive for orthostatic hypotension with a greater than 30 mmHg systolic drop increased dizziness and nausea, with some component of BPPV. CT head on admission was negative for findings of acute infarct. Thai's maneuver was performed with worsening dizziness on 07/13/2020 and patient was noted to have a second-degree heart block correlating at that time, has not had any episodes since then. Cardiology was consulted recommending an event recorder on discharge outpatient follow-up with cardiology. Given hypertension experience they recommended increasing Imdur to 30 mg twice daily and added hydralazine 10 mg 3 times daily. We will continue meclizine 25 mg twice daily as needed for dizziness. Throughout the hospitalization patient continues to improve with increasing p.o. intake and improvement in nausea and dizziness. -PT/OT ordered -Overnight has not had anymore episodes of 2nd degree heart block -Cardiology consulted -Recommending event recorder upon discharge and outpatient f/u with cardiology -Due to HTN Imdur increased to 30mg BID and added Hydralazine 10mg TID -Will continue Meclizine 25mg BID PRN dizziness in hopes to improve vertigo. UTI Patient denies any significant urinary symptoms, however UA on admission was suspicious for urinary tract infection. Microbiology showed E faecalis with intermediate susceptibility to Cipro and resistant to tetracycline. It appears to be sensitive to ampicillin patient currently on amoxicillin 500 mg p.o. 3 times daily. I suspect given the patient's age and fragility this is likely contributing to his original presentation. -Will treat with Amoxicillin 500mg TID x 5 days (day 2/5) -Will add on probiotic Orthostatic hypotension - Resolved poor PO intake x3 weeks in addition to 1 week of nausea, while on furosemide in the setting of a urinary tract infection. Likely has an infection improved orthostatic hypotension resolved -Lasix resumed -Continue flomax. -Continue to encourage PO intake -Will continue to monitor for return of orthostatic hypotension with resumption of lasix and increase in Imdur and addition of Hydralazine. Poor oral intake/nausea x 1 wk/vomiting 07/12 - Resolving -Zofran PRN Nausea -Noting 16oz PO intake of fluids the past 3 weeks since his L ankle fx and repair due to difficulties leaving bed. -If continues to worsen consider Dietary and GI consults. Bradycardia - Resolved -On admission with HR 49 -EKG showing sinus sara w/ first-degree AV block -On Carvedilol which patient states was started 6 months ago by his hat cleaner for HTN -Will continue to hold carvedilol at this time as may be contributing to patients dizziness, though more likely from orthostatic hypotension. -HR stable at 60-70's DM2: -Patient is on repaglinide 4 mg 3 times daily at home, hold while here -HgbA1C 6.6 -SSI while admitted. CKD stage III: -Over the last several months patient has had a baseline creatinine of 2.3. -Admission Creatinine 1.6 -Continue to monitor HTN/CAD/HLD: -Hx CABG x5 in 1999 -EF 70% from echo 03/2020 -Was on Plavix and ASA in past -Notes he stopped ASA when beginning Ibrutinib therapy Feb 2020 for his CLL -Continue home Isosorbide mononitrate, increase to BID dosing -Continue home Losartan -Resume home Lasix in AM -Strict I/O -Hold Carvedilol due to bradycardia -No longer on statin due to myalgias and not on Niaspan due to rash CLL: -Diagnosed in 2011 -Started on Ibrutinib in Feb 2020 -Continue home Ibrutinib FENa:DM2, heart healthy, Code Status:Full code DVT PPX:Heparin 5000 units SQ every 12 hours PT/OT:ordered Dispo:Telemetry given bradycardia and symptoms of dizziness for continuous card iac monitoring. Once able to participate with PT/OT, would expect DC to SNF or home with home therapy Colin Gupta MD PGY 2, FCM This chart was completed utilizing [employer] voice recognition software. Grammatical errors, random word insertions, pronoun errors, and in complete sentences are an occasional consequence of the system. Any questions or concerns about the content, text, or information contained within the body of this dictation should be addressed directly to the physician for clarification. Admission and Anticipated Discharge Date Admission Date: July 11, 2020 Results & Data Results & Data ([facility]) Vital Signs (Past 12 Hours) Vital Signs Temp Pulse Resp BP Pulse Ox 07/15/20 03:53 36.7 C 62 18 150/62 H 95 07/14/20 23:50 37 C 65 18 173/68 H 95 07/14/20 19:30 37.4 C 67 18 174/66 H 94
[2020-07-15] MEDS: ISOSORBIDE MONO EXTENDED REL 30 MG TABCR PO SCH (07:51)
[2020-07-15] MEDS: AMOXICILLIN 500 MG CAP PO SCH ×2 (07:51→14:26)
[2020-07-15] MEDS: hydrALAZINE 10 MG TAB PO SCH ×2 (07:51→14:26)
[2020-07-15] MEDS: MULTIVITAMIN TAB PO SCH (07:51)
[2020-07-15] MEDS: carvediloL 3.125 MG TAB PO SCH (07:51)
[2020-07-15] MEDS: ADVANCED PROBIOTIC 1250 MG CAPSULE PO SCH (07:52)
[2020-07-15] MEDS: ASCORBIC ACID 500 MG TAB PO SCH (07:52)
[2020-07-15] MEDS: FERROUS SULFATE 325 MG TAB PO SCH (07:52)
[2020-07-15] MEDS: HEPARIN SOD 5,000 UNIT/0.5 ML VIAL SQ SCH (07:52)
[2020-07-15] MEDS: LOSARTAN POTASSIUM 50 MG TAB PO SCH (07:52)
[2020-07-15] MEDS: INSULIN ASPART 100 UNITS/ML 3 ML PEN SC SCH ×2 (07:53→11:43)
[2020-07-15] MEDS: FUROSEMIDE 20 MG TAB PO SCH (09:02)
--- NOTE | 2020-07-15 14:28 | Discharge Summary ---
Date of Service July 15, 2020 Admission HPI Per Admitting Provider 79-year-old male past medical history significant for CAD status post CABG, DM 2 on oral therapy, CLL, CKD stage III, hypertension, hyperlipidemia, depression, recent surgical repair of left ankle fracture 3 weeks ago presented to the ER for worsening generalized weakness and dizziness x1 day. Endorses some associated nausea, no headache, shortness of breath, chest pain, abdominal pain, recent fevers or chills. Reports that the dizziness comes on when he changes positions and turns his head in different directions. Reports that he has had some generalized weakness over the last several months, which has resulted in several falls including the one during which she fractured his left ankle several weeks ago requiring surgical fixation. He reports often feeling "unsteady on his feet and weak". States that on waking this morning his weakness and dizziness was worse which is what prompted him to not take any of his home medications for hypertension, and when he continued to feel unwell he decided to come to the ER. He reports that his appetite, fluid intake have been normal until today when he felt nauseous. In the ER patient was noted to have a heart rate of 49 which improved without intervention to about 54, EKG showed sinus bradycardia with first-degree AV block, creatinine 1.66 (decreased from baseline over last several months of ~2.3). CT head performed which showed no acute intracranial findings. Chest x- ray without findings suggestive of pneumonia or acute heart failure. On my interview patient reports feeling slightly better at heart rate mid 50s, still with dizziness upon turning his head and changing positions. Admission Exam Per Admitting Provider Constitutional: WD/WN, vitals as above Eyes: PERRL, conjunctivae normal, anicteric sclerae ENMT: external ear and nose normal, oropharynx normal Neck: normal visual inspection Respiratory: normal respiratory effort, lungs clear to auscultation Cardiovascular: RRR, no murmur, no edema Rate/Rhythm: regular rhythm and + bradycardic Heart Sounds: no murmur Extremities: no edema Gastrointestinal (Abdomen): normal bowel sounds, soft, nontender, no hepatosplenomegaly Musculoskeletal: no cyanosis or clubbing, extremities motor strength 5/5 Skin: no rashes, warm and dry Neurologic: AAOx3, normal speech. PERRLA, EOMI, no nystagmus. Able to reproduce dizziness sensation with having patient turned head sharply to the left, and sharply to the right. Bilateral UE, LE, and face without sensory or motor deficits. No tremor. Psychiatric: A+Ox3, euthymic affect Principal Diagnosis Generalized weakness and dizziness secondary to orthostatic hypotension, BPPV, and acute UTI Discharge Exam General: No acute distress lying in bed joking HEENT: Normocephalic atraumatic Neck: Normal to visual inspection Cardiac: Regular rate and rhythm I did appreciate significant murmurs rubs or gallops, normal S1, normal S2, 1+ pedal edema, negative calf tenderness Respiratory: Clear to auscultation bilaterally symmetrical chest expansion I did not appreciate significant wheezes, rales, rhonchi, no increased work of breathing GI: Soft, nontender, nondistended bowel sounds present MSK: Moves all extremities Skin: No skin complaints Neuro: Alert and oriented x4 Psych: Calm and cooperative with the interview Discharge Data Allergies Allergy/AdvReac Type Severity Reaction Status Date / Time Iodinated Contrast Media Allergy Intermediate Hives Verified 06/18/20 15:58 tetracycline Allergy Intermediate SWELLING Verified 06/18/20 15:58 OF GENITALS Dsadflf-Cjv-Zls Reductase AdvReac Mild JOINT PAIN Verified 06/18/20 15:58 Inhibitor Consultations 07/11/20 19:50 ED Decision to Admit Stat 07/13/20 11:02 Consult Cardiology Routine Ordered Studies 07/11/20 17:55 CT head/brain wo con Stat Hospital Course (1) Dizziness: 79-year-old male past medical history significant for CAD status post CABG, DM 2 on oral therapy, CLL, CKD stage III, hypertension, hyperlipidemia, depression, recent surgical repair of left ankle fracture 3 weeks ago admitted for generalized weakness and dizziness and noted to have bradycardia to high 40s. Dizziness in addition to Generalized Weakness Suspect likely secondary to urinary tract infection and resulting symptoms vitals positive for orthostatic hypotension with a greater than 30 mmHg systolic drop increased dizziness and nausea, with some component of BPPV. CT head on admission was negative for findings of acute infarct. Thai's maneuver was performed with worsening dizziness on 07/13/2020 and patient was noted to have a second-degree heart block correlating at that time, has not had any episodes since then. Cardiology was consulted recommending an event recorder on discharge outpatient follow-up with cardiology. Given hypertension experience they recommended increasing Imdur to 30 mg twice daily and added hydralazine 10 mg 3 times daily. We will continue meclizine 25 mg twice daily as needed for dizziness. Throughout the hospitalization patient continues to improve with increasing p.o. intake and improvement in nausea and dizziness. PT and OT evaluated the patient recommending home health this was arranged at [facility]. Meclizine 25 mg twice daily as needed will be continued on discharge in hopes that it helps with his vertigo symptoms. UTI Patient denies any significant urinary symptoms, however UA on admission was suspicious for urinary tract infection. Microbiology showed E faecalis with intermediate susceptibility to Cipro and resistant to tetracycline. It appears to be sensitive to ampicillin patient currently on amoxicillin 500 mg p.o. 3 times daily. I suspect given the patient's age and fragility this is likely contributing to his original presentation. -Continue amoxicillin 500mg TID x 5 days (day 2/5) Orthostatic hypotension - Resolved poor PO intake x3 weeks in addition to 1 week of nausea, while on furosemide in the setting of a urinary tract infection. Likely has an infection improved orthostatic hypotension resolved. -Monitor for symptoms with the resumption of antihypertensives, diuretics, and antianginals Bradycardia - Resolved On admission patient heart rate of 49, periodically throughout his admission during the evening he had episodes of bradycardia. While on telemetry he had an episode of 2-1 heart block, however as his symptoms improved he has not had any further episodes. He cardiology was consulted and will be arranging for an event recorder as an outpatient. DM2: -Patient is on repaglinide 4 mg 3 times daily at home, hold while here. Was placed on SSI while hospitalized, on discharge resumed home meds CKD stage III: -Over the last several months patient has had a baseline creatinine of 2.3. -Admission Creatinine 1.6 -Continue to monitor HTN/CAD/HLD: History of a CABG x5 vessels in 1999, ejection fraction 70% from echo in 03/2020 previously was on aspirin and Plavix, stopped this when beginning ibrutinib therapy in February 2020 for his CLL. Cannot tolerate statins due to myalgias CLL: -Diagnosed in 2011 -Started on Ibrutinib in Feb 2020 -Continued home Ibrutinib FENa:DM2, heart healthy, Code Status:Full code DVT PPX:Heparin 5000 units SQ every 12 hours while hospitalized PT/OT:ordered, recommending home health Dispo: Home with home health Colin Gupta MD PGY 2, FCM This chart was completed utilizing [employer] voice recognition software. Grammatical errors, random word insertions, pronoun errors, and in complete sentences are an occasional consequence of the system. Any questions or concerns about the content, text, or information contained within the body of this dictation should be addressed directly to the physician for clarification. Total Time Total Time Spent Total Time Spent (In Minutes): 43 Discharge Plan Discharge Items Patient Disposition: Home - Home Health Services Reason For Visit: BRADYCARDIA, WEAKNESS Discharge Diagnosis: Generalized weakness and dizziness secondary to orthostatic hypotension, BPPV, and acute UTI Activity: Resume your previous activity Non-emergency contact: Primary Care Provider Call non-emergency contact if: you have any medication questions, your symptoms worsen and your temperature is above 101.5 Follow-up/Referrals: Linwood Alberto MD [Primary Care Provider] - 07/23/20 9:30 am Diet: Carb Consistent or DM2 and Heart Healthy Addtl Attending Provider Instructions: Care instructions: You were admitted to [facility] for treatment of generalized weakness and orthostatic hypotension (dizziness) in the setting of urinary tract infection. While hospitalized we provided you with antibiotics, and fluid hydration. Throughout the course of hospitalization he continued to improve, you regained your strength, and dizziness improved. While hospitalized he did have an episode of a funny heart rhythm, we recommend you follow-up with cardiology as an outpatient. They have arranged for this appointment, and will be setting up an event recorder. We are discharging you on an antibiotic amoxicillin, and recommend you continue taking it. We will prescribe you an additional 3 days of the medication to complete a 5-day course the medication. This medication is for urinary tract infection was identified while hospitalized . A discharge summary will be sent to your primary care physician to ensure continuity of care. Please bring this discharge summary with you to your next office appointment so that your provider can review it at that time. Medication changes have been detailed below, your medications have been called into the [facility] on [address]. Follow-up appointments: - Keep all your follow-up appointments as already scheduled. If you cannot make an appointment, notify your provider. - Please call to request a follow-up appointment with your primary care physician within one week of discharge. Please let us know if you are unable to obtain an appointment Medications: - Your medication list has been reviewed and reconciled upon discharge to ensure accuracy and continuity of care. - You are provided with a list of all your current medications at this time. Please review this list closely and make note of any changes. - Please take all of your medications exactly as prescribed. - Tell your primary care provider if you cannot afford your medications. - Call your primary care provider if you are having any side effects or any other problems. - Call your primary care provider before taking any over the counter medications or supplements, including herbals and vitamins, because some of these may interact with your current medications and/or make your symptoms worse. Symptoms: Please call your primary care provider for symptoms including, but not limited to: fevers (temperatures greater than 100.4), chills, intractable nausea or vomiting, diarrhea, rash, shortness of breath, bleeding, pain, or if you experience any worsening of the symptoms that brought you to the hospital. For EMERGENCY and VERY SERIOUS health-related issues, such as chest pain, shortness of breath, or sudden onset of the symptoms that brought you to the hospital, you may need to call 911 or go directly to the Emergency Room It has been our privilege to take care of you during your hospital stay. And Above All Else Feel Better! Best Wishes, Colin Gupta MD PGY2 Resident, Family & Community Medicine [facility] - [address], [address] MC: [address] [place] [address] Pending Studies at Discharge: No Stand-Alone Forms: [facility], Smoking Cessation Medications and DC Order Prescriptions: New amoxicillin 500 mg Capsule 500 mg PO TID 4 Days Qty: 12 RF: 0 losartan 50 mg Tablet 50 mg PO DAILY 30 Days Qty: 30 RF: 0 hydralazine 10 mg Tablet 10 mg PO TID 30 Days Qty: 90 RF: 0 isosorbide mononitrate 30 mg Tablet Extended Release 24 Hr 30 mg PO BID 30 Days Qty: 60 RF: 0 carvedilol 3.125 mg Tablet 3.125 mg PO BID 30 Days Qty: 60 RF: 0 meclizine 25 mg Tablet 25 mg PO ONE PRN (Reason: dizziness) Qty: 30 RF: 0 Continued furosemide 20 mg tablet 20 mg PO DAILY RF: 0 fluocinonide 0.05 % solution 1 appln topical BID PRN (Reason: break outs) RF: 0 clobetasol 0.05 % solution 1 appln topical PRN RF: 0 ondansetron HCl 8 mg tablet 8 mg PO UD PRN (Reason: Nausea) RF: 0 terbinafine HCl 250 mg Tablet 0 mg PO DAILY PRN (Reason: toe nail fungus) RF: 0 ascorbic acid (vitamin C) [Vitamin C] 500 mg Tablet 500 mg PO Q OTHER DAY RF: 0 ferrous sulfate 325 mg (65 mg iron) Tablet,Delayed Release (Dr/Ec) 325 mg PO Q OTHER DAY RF: 0 ibrutinib 140 mg Tablet 140 mg PO DAILY RF: 0 desonide 0.05 % Cream 1 applic TOPICAL QID PRN (Reason: Rash) RF: 0 repaglinide [Prandin] 2 mg Tablet 4 mg PO TID RF: 0 citalopram 20 mg Tablet 20 mg PO QPM RF: 0 tamsulosin 0.4 mg Capsule 0.4 mg PO QPM RF: 0 nitroglycerin 0.4 mg Tablet, Sublingual 1 tab Sublingual UD PRN (Reason: Chest Pain) RF: 0 ketoconazole 2 % Cream 1 applic TOPICAL DAILY PRN (Reason: Rash) RF: 0 magnesium oxide 250 mg magnesium Tablet 250 mg PO DAILY RF: 0 cholecalciferol (vitamin D3) [Vitamin D3] 5,000 unit Tablet 5,000 unit PO DAILY RF: 0 omega 2-qfe-hrf-fish oil [Fish Oil] 1,000 mg (120 mg-180 mg) Capsule 1 cap PO DAILY RF: 0 multivitamin Tablet 1 tab PO DAILY RF: 0 coQ10 (ubiquinol) 200 mg Capsule 200 mg PO DAILY RF: 0 glucosamine-chondroitin 167-133 mg Capsule 1 cap PO BID RF: 0 Discontinued losartan 100 mg tablet 50 mg PO DAILY RF: 0 isosorbide mononitrate 30 mg tablet extended release 24 hr 30 mg PO DAILY RF: 0 carvedilol 6.25 mg tablet 6.25 mg PO BID RF: 0 Discharge Orders: Discharge Order (Routine); Ordered 07/15/20 Ordered By: Colin Manuel/Other Patient Handouts: Managing Type 2 Diabetes Admission Data Admit Date/Time: 07/11/20 20:46 Attending Provider: Char Guevara Admit Provider: Lizz Gupta Primary Care Provider: Linwood Alberto Other Providers: Lizz Gupta ; [facility],Hospital ; Richard Xiong ; [facility] Other Interventions: Discharge Summary Assessment (RN) Last Done: 07/15/20 16:24 Supervising Physician Co-Signing Physician Notes Resident Physician Supervision Note: I independently interviewed and examined the patient and verified the adams history and physical, reviewed labs and image studies, discussed the case with the resident Dr. Gupta and agree with the findings and care plan. Resident Activity Tracking Resident Involvement: Resident Care Provided Care Provided: Adult Hospital Medicine
== END 2020-07-15 16:52 | disposition home health service (06) | DRG 690 ==
LOC: ED 17:18 → 2S 20:46 → SUATTDRO 20:46 → 2S 21:47

== ENCOUNTER 2020-07-26 08:39 | Observation (INO) ==
[~2020-07-26 08:39] MED LIST changes: -ASPECOTC PO; +BACITRACIN INJ 50,000 UNIT VIAL ONE; +BUPIVACAINE 0.25% 30 ML VIAL ONE; -CHOL20007 PO; -CITA20TA4 PO; -CLIN1SOL TOP; -COEN1CAP28 PO; -FENO134C2 PO; -GLUC250C PO; +LIDOCAINE HCL 1% 20 ML VIAL ONE; -MAGN400T6 PO; -MULT-506 PO; -NTRGSL/4 UT; -OMEG10007 PO; -REPA2TAB12 PO; -TAMS0.4C38 PO; -TURMPOW PO
--- NOTE | 2020-07-26 09:22 | Pre Anesthesia Assessment ---
Date of Service July 26, 2020 Pre Sedation Assessment Vital Signs Temp Pulse Resp BP Pulse Ox 07/26/20 08:50 36.9 C 55 L 20 161/64 H 94 Cardiovascular + bradycardic Respiratory + respiratory effort normal Pre-Sedation Airway Assessment Smoking Status: Never smoker Hx Sleep Apnea: Yes Hx Difficult Intubation: No Short, Thick Neck: No Thyromental Distance: > or= 3.5 Finger Breadths Oral Cavity: + WNL Mallampati Class: III ASA: ASA3 NPO Status Date of Last Intake of Fluids: 07/25/20 Time of Last Intake of Fluids: 22:00 Date of Last Intake of Solid Food: 07/25/20 Time of Last Intake of Solid Foods: 22:00 Procedure Planning Contraindications for Sedation: none Current Medications Reviewed: Yes Notes The planned sedation has been discussed with the patient. Informed Consent was obtained. I have identified the patient, determined the appropriateness of sedation and have assessed the patient immediately prior to the procedure. All medicine(s) and interventions are by my order.
--- NOTE | 2020-07-26 09:22 | History & Physical Bridge Note ---
Date of Service July 26, 2020 History & Physical Bridge Note I have examined the patient, reviewed the History & Physical and in the interval since the performance of the History & Physical I have noted the following changes of clinical significance: no changes noted
[2020-07-26] MEDS ORDERED: MIDAZOLAM HCL 5 MG/ML 1 ML VIAL ONE (09:41)
[2020-07-26] MEDS ORDERED: fentaNYL citrate 100 MCG/2 ML VIAL ONE (09:41)
--- NOTE | 2020-07-26 10:48 | Post Anesthesia Assessment ---
Date of Service July 26, 2020 Post Sedation Assessment Vital Signs Temp Pulse Resp BP Pulse Ox 07/26/20 08:50 36.9 C 55 L 20 161/64 H 94 Recovery Score Activity: Moves 4 extremities Respiration: Deep Breath/Cough Circulation: +/-20% PreAnes Value Consciousness: Arouseable (by name) Oxygen Saturation: > 92% On Room Air Discharge Sedation Level of Care: Fast Track Phase II Post Sedation Plan On clinical assessment, the patient appears to have tolerated the sedation without complications. Patient is recovering as anticipated. Patient will continue to be monitored by nursing and may be discharged when sedation discharge criteria are met per below protocol. Upon Completions of procedure up to 15 minutes continue every 5 minute vital signs and the P.A.R. score; then discharge to a Phase I or Fast Track to Phase II per the following guidelines: * Discharge Patient to appropriate Phase II area if PAR is 8 or greater or return to pre- procedure baseline. The post - procedure orders will be as directed. * If PAR score is less than 8 or not return to pre-procedure baseline then patient will follow Phase I monitoring till PAR is reached for Phase II. The Phase I may be done in procedure room or may call to secure a Phase I area. * If naloxone or flumazenil are used for reversal, hold in Phase I for continued monitoring from when last reversal dose was given for a minimum of 60 minutes or longer pending the nurse and/or physician discretion of patient condition before discharge to Phase II. Please call the Sedation Physician to re-evaluate and complete post-note for discharge to Phase II area. Do NOT discharge from procedure sedation or Phase 1 until post- sedation evaluation note is complete by procedure /sedation MD Sedation Discharge Instructions to be given to the patient at discharge to home.
--- NOTE | 2020-07-26 10:50 | Electrophysiology Report ---
Date of Service July 26, 2020 Electrophysiology Procedure Electrophysiology Procedure Report Procedure performed: Implantation of dual-chamber permanent pacemaker Staff fruit canner: Freedom Cook MD Indication: The patient is a 79-year-old gentleman with a history of coronary artery disease who has been having episodes of dizziness. Outpatient monitoring revealed periods of asystole lasting up to 4 seconds in duration. Based on his symptoms and EKG findings he was felt be good candidate for implantation of permanent pacemaker. An atrial lead was added as he is currently in sinus rhythm and wished to maintain AV synchrony. Advised to be in place for symptomatic nonreversible AV node dysfunction. Procedure in detail: The patient was informed of the risks benefits and alternatives to the intended procedure and she wished to proceed. The was taken to the electrophysiology suite in a fasting state. A preoperative antibiotic had been administered. The patient was monitored electrocardiographically throughout today's procedure and conscious sedation was administered per protocol. The right upper pectoral area is prepped and draped in usual sterile fashion. This area was anesthetized using subcutaneous administration of a xylocaine solution. An incision was made at this site and carried down to the prepectoralis fascia using sharp dissection. Electrocautery was also employed for dissection as well as for hemostasis. A device pocket was fashioned tissues above the pectoralis muscle. Subsequent to this maneuver the left axillary vein was accessed using modified Seldinger technique. Sheaths were placed over guidewires at this site and used to facilitate passage of the pacing leads to the respective chambers under fluoroscopic guidance. This included right atrial and right ventricular leads. Adequate sensing and threshold parameters were obtained prior to Active fixation of the leads to the endocardial surface. The proximal portion leads were then sutured the prepectoral fascia using nonabsorbable suture. The device pocket was irrigated with antibiotic solution. The leads were then attached to the device. The device and leads were then placed in the pocket and pocket was closed in 3 layers of absorbable suture. Steri-Strips and sterile dressing were applied. The device was tested noninvasively prior to conclusion the procedure. The patient tolerated procedure well there no immediate complications. Equipment used: New pulse generator: [employer]. Model number: [id number] serial number [id number] Right atrial lead: [email or web address]. Model number: 5076 serial number [id number] Right ventricular lead: [employer]. Model number: 5076 serial number [id number] Measured data: Right atrial lead: P waves measure 1.3 mV. Pacing threshold 1.2 V at 0.4 ms with a pacing impedance of 475 ohms Right ventricular lead: R waves measured 8.3 mV. Pacing threshold was 0.5 V at 0.4 ms with a pacing impedance of 988 ohms Impression: Successful implantation of dual-chamber permanent pacemaker MNPG Electrophysiology codes Pacing Procedure 1: Pacin Insert/Replace Pacer A & V PG Moderate Sedation Codes Moderate Sedation Codes Procedure 1: Sedation/Anesthesia: 42767 Mod Sedation by the same physician;Init15 Min Child Age 5 & Up Procedure 2: Sedation/Anesthesia: 67891 Mod Sedation by the same physician; Ea [id number] Minutes
[2020-07-26] MEDS ORDERED: ACETAMINOPHEN 325 MG TAB PO PRN (10:51)
[2020-07-26] MEDS ORDERED: oxyCODONE HCL IR 5 MG TAB (IMMEDIATE RELEASE) PO PRN (10:51)
[2020-07-26] MEDS: REPAGLINIDE 1 MG TAB PO SCH ×2 (13:20→16:40)
[2020-07-26] MEDS: ceFAZolin 1000MG 1,000 MG/7.5 ML SYR IV SCH (17:17)
[2020-07-26] MEDS: ISOSORBIDE MONO EXTENDED REL 30 MG TABCR PO SCH (20:23)
[2020-07-26] MEDS: carvediloL 6.25 MG TAB PO SCH (20:24)
[2020-07-26] MEDS ORDERED: TAMSULOSIN HCL 0.4 MG CAP PO SCH (21:00)
[2020-07-26] MEDS ORDERED: CITALOPRAM 20 MG TAB PO SCH (21:00)
[2020-07-27] MEDS: ceFAZolin 1000MG 1,000 MG/7.5 ML SYR IV SCH ×2 (01:54→10:38)
[2020-07-27] MEDS: REPAGLINIDE 1 MG TAB PO SCH (07:48)
[2020-07-27] MEDS: carvediloL 6.25 MG TAB PO SCH (07:48)
[2020-07-27] MEDS: ISOSORBIDE MONO EXTENDED REL 30 MG TABCR PO SCH (07:48)
[2020-07-27] MEDS: FUROSEMIDE 20 MG TAB PO SCH ×2 (07:49→07:51)
[2020-07-27] MEDS ORDERED: MAGNESIUM OXIDE 400 MG TAB PO SCH (09:00)
[2020-07-27] MEDS ORDERED: LOSARTAN POTASSIUM 50 MG TAB PO SCH (09:00)
--- NOTE | 2020-07-27 10:32 | XRay Report ---
TWO VIEW CHEST CLINICAL HISTORY: Status post pacemaker implantation.. FINDINGS: PA and lateral chest radiographs are compared to study dated 07/11/2020. Correlation is made with chest CT dated 03/28/2012. A 2-lead cardiac pacemaker is new from previous and partially obscure s the right lower chest. Leads project over the right atrial appendage and the right ventricle. A lef t subclavian central venous infusion port is unchanged in position. The patient is status post midlin e sternotomy. The heart is enlarged noting atherosclerotic calcification of the thoracic aorta. The p ulmonary vasculature is noncongested. Chronic interstitial thickening is similar to previous. There i s chronic elevation of the right hemidiaphragm and bibasilar atelectasis. No airspace consolidation i s seen typical for pneumonia and there is no pleural effusion. There is no pneumothorax. The skeletal structures are osteopenic. The bony thorax appears intact. IMPRESSION: 1. A 2-lead cardiac pacemaker has been implanted as above. No pneumothorax is identified post procedu re. 2. Cardiomegaly without radiographic evidence of congestive failure. 3. No airspace consolidation or pleural effusion is identified. ACT 112: Negative or not required by law. Electronically signed by: Breezy Russell M.D. 07/27/2020 10:31 AM
--- NOTE | 2020-07-27 11:04 | Discharge Summary ---
Date of Service July 27, 2020 Admission HPI Per Admitting Provider The patient is a 79-year-old gentleman with a history of coronary artery disease who was noted on outpatient monitoring to have periods of asystole. He been suffering with dizziness and was advised to consider implantation of a permanent pacemaker. Principal Diagnosis Generalized weakness and dizziness secondary to orthostatic hypotension, BPPV, and acute UTI Discharge Exam No hematoma or drainage at the device implant site. No ecchymosis. Discharge Data Allergies Allergy/AdvReac Type Severity Reaction Status Date / Time Iodinated Contrast Media Allergy Intermediate Hives Verified 06/18/20 15:58 tetracycline Allergy Intermediate SWELLING Verified 06/18/20 15:58 OF GENITALS Xtbptmm-Hkh-Jbr Reductase AdvReac Mild JOINT PAIN Verified 06/18/20 15:58 Inhibitor Procedures Performed Operation Date: 07/26/20 10:00 Actual Procedures p Pacer with A/V Leads (Dual) - Evin Cook MD Ordered Studies 07/26/20 06:35 CL Cath Imgs for PACS use only Routine Hospital Course (1) Bradycardia: On the day of admission the patient underwent implantation of a dual- chamber permanent pacemaker. MZL [employer]. The procedure was uncomplicated. On the following morning the patient did have some dizziness with changes in position. This was accompanied by some nausea and one episode of vomiting. These are similar to symptoms which led to his initial evaluation. At the time of my interview he is actually feeling well. His symptoms had resolved. There is no evidence of complication at the device implant site. Chest x-ray revealed good lead position without pneumothorax. Device interrogation revealed good function of both leads. Total Time Total Time Spent Total Time Spent (In Minutes): 10 Total Time Includes: Examination of the Patient, Discharge Planning and Medication Reconciliation Discharge Plan Discharge Items Patient Disposition: Home - Self-Care Reason For Visit: DCP INSERTION Discharge Diagnosis: Symptomatic bradycardia Condition on Discharge: Good Activity: Per Instructions section Activity Comment: No lifting right arm above shoulder behind neck for 6 weeks Lifting: No more than 10 pounds Bathing: Keep incision dry Bathing Comment: Keep wound dry and Steri-Strip intact until follow-up next week Driving/Machine Use: Resume 1 day after discharge Non-emergency contact: Mine Administrator Supervisor Call non-emergency contact if: your pain is concerning for you, you have a fever, your wound has increased redness and your wound has increased drainage Follow-up/Referrals: Linwood Alberto MD [Primary Care Provider] - Diet: Carb Consistent or DM2 and Heart Healthy Addtl Attending Provider Instructions: none Pending Studies at Discharge: No Stand-Alone Forms: My [facility], Smoking Cessation Medications and DC Order Prescriptions: Continued furosemide 20 mg tablet 20 mg PO DAILY RF: 0 fluocinonide 0.05 % solution 1 appln topical BID PRN (Reason: break outs) RF: 0 clobetasol 0.05 % solution 1 appln topical PRN RF: 0 ondansetron HCl 8 mg tablet 8 mg PO UD PRN (Reason: Nausea) RF: 0 terbinafine HCl 250 mg Tablet 0 mg PO DAILY PRN (Reason: toe nail fungus) RF: 0 ascorbic acid (vitamin C) [Vitamin C] 500 mg Tablet 500 mg PO Q OTHER DAY RF: 0 ferrous sulfate 325 mg (65 mg iron) Tablet,Delayed Release (Dr/Ec) 325 mg PO Q OTHER DAY RF: 0 ibrutinib 140 mg Tablet 140 mg PO DAILY RF: 0 desonide 0.05 % Cream 1 applic TOPICAL QID PRN (Reason: Rash) RF: 0 repaglinide [Prandin] 2 mg Tablet 4 mg PO TID RF: 0 citalopram 20 mg Tablet 20 mg PO QPM RF: 0 tamsulosin 0.4 mg Capsule 0.4 mg PO QPM RF: 0 nitroglycerin 0.4 mg Tablet, Sublingual 1 tab Sublingual UD PRN (Reason: Chest Pain) RF: 0 ketoconazole 2 % Cream 1 applic TOPICAL DAILY PRN (Reason: Rash) RF: 0 magnesium oxide 250 mg magnesium Tablet 250 mg PO DAILY RF: 0 cholecalciferol (vitamin D3) [Vitamin D3] 5,000 unit Tablet 5,000 unit PO DAILY RF: 0 omega 6-tay-ttb-fish oil [Fish Oil] 1,000 mg (120 mg-180 mg) Capsule 1 cap PO DAILY RF: 0 multivitamin Tablet 1 tab PO DAILY RF: 0 coQ10 (ubiquinol) 200 mg Capsule 200 mg PO DAILY RF: 0 glucosamine-chondroitin 167-133 mg Capsule 1 cap PO BID RF: 0 losartan 50 mg Tablet 50 mg PO DAILY 30 Days Qty: 30 RF: 0 isosorbide mononitrate 30 mg Tablet Extended Release 24 Hr 30 mg PO BID 30 Days Qty: 60 RF: 0 carvedilol 3.125 mg tablet 6.25 mg PO BID RF: 0 Discharge Orders: Discharge Order (Routine); Ordered 07/27/20 Ordered By: Evin Cook Admission Data Admit Date/Time: 07/26/20 10:02 Attending Provider: Evin Cook Admit Provider: Evin Cook Primary Care Provider: Linwood Alberto Other Providers: [facility] ; [facility] Coding Level of Care Code 35747 OBS Care - Discharge Diagnoses Bradycardia R00.1
== END 2020-07-27 11:34 | disposition home or self-care (01) ==
LOC: EP 08:39 → 2S 08:39

== ENCOUNTER 2021-08-03 02:28 | Observation (INO) ==
[2021-08-03] MEDS ORDERED: SODIUM CHLORIDE 0.9% 500 ML IV ONE (02:52)
[2021-08-03 03:16] LABS: Alanine Aminotransferase 9 U/L (7-52); Albumin Globulin Ratio 2.4 (0.9-2); Albumin Level 3.8 gm/dl (3.4-5.0); Alkaline Phosphatase 43 U/L (34-104); Anion Gap 7 (3-11); Aspartate Aminotransferase 10 U/L (13-39); Bilirubin,Total 0.8 mg/dl (0.2-1.0); Blood Urea Nitrogen 43 mg/dl (6-23); Calcium 8.3 mg/dl (8.5-10.1); Carbon Dioxide 21 mmol/L (21-32); Chloride 110 mmol/L (98-107); Creatinine Clr Calc Pharmacy 33.8 ml/min; Globulin 1.6 gm/dl (2.5-4.0); Glucose 203 mg/dl (70-99(Fasting)); Lipase 18 U/L (11-82); Potassium 5.1 mmol/L (3.5-5.1); Sodium 138 mmol/L (136-145); Total Protein 5.4 gm/dl (6.0-8.3)
[2021-08-03 03:18] LABS: Troponin I < 0.03 ng/ml (0-0.04)
[2021-08-03 04:01] LABS: Hematocrit (blood only) 35.8 % (42-52); Mean Corpuscular Hemoglobin 30.5 pg (25-34); Mean Corpuscular Hgb Conc 33.5 g/dL (32-36); Mean Corpuscular Volume 90.9 fL (80-100); Mean Platelet Volume 12.9 fL (7.4-10.4); Platelet Count 114 K/uL (130-400); RDW Coefficient of Variation 13.1 % (11.5-14.5); RDW Standard Deviation 43.8 fL (36.4-46.3); Red Blood Count 3.94 M/uL (4.7-6.1); White Blood Count 7.58 K/uL (4.8-10.8)
[2021-08-03 04:02] LABS: Basophils # (auto) 0.02 K/uL (0-0.2); Basophils % (auto) 0.3 %; Eosinophils # (auto) 0.05 K/uL (0-0.5); Eosinophils % (auto) 0.7 %; Lymphocytes # (auto) 0.67 K/uL (1.2-3.4); Lymphocytes % (auto) 8.8 %; Monocytes # (auto) 0.37 K/uL (0.11-0.59); Monocytes % (auto) 4.9 %; Neutrophils # (auto) 6.47 K/uL (1.4-6.5); Neutrophils % (auto) 85.3 %; Platelet Estimate Decreased (Normal)
[2021-08-03] MEDS ORDERED: ONDANSETRON INJ 2 MG/ML 2 ML VIAL IV STA (04:15)
[2021-08-03] MEDS ORDERED: NITROGLYCERIN SL 0.4 MG/TAB TAB SL STA (04:15)
[2021-08-03] MEDS ORDERED: MoRPHine SULFATE 2 MG/ML CARP IV STA (04:41)
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
[2021-08-03] MEDS ORDERED: NITROGLYCERIN SL 0.4 MG/TAB TAB SL PRN (05:34)
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
[2021-08-03] MEDS ORDERED: LACTATED RINGER'S 1,000 ML IV SCH (06:00)
--- NOTE | 2021-08-03 06:50 | XRay Report ---
XR chest 1V portable CLINICAL HISTORY: Atypical chest pain. COMPARISON STUDY: Chest radiograph August 02, 2020. FINDINGS: Right subclavian pacer and median sternotomy wires are noted as well as mediastinal surgica l clips and a left subclavian [id number]-[id number]. Mild cardiomegaly is unchanged. There is no pneumothorax or pleural effusion. There is no consolidation or evidence for pulmonary edema. Appearance of the ch est is unchanged. IMPRESSION: No acute cardiopulmonary findings. No change in appearance of the chest. ACT 112: Negative or not required by law. Electronically signed by: Godfrey Bustillos M.D. 08/03/2021 6:48 AM
[2021-08-03] MEDS ORDERED: NITROGLYCERIN 2% OINTMENT 30GM TUBE EXT SCH (08:00)
[2021-08-03] MEDS ORDERED: PANTOprazole 40 MG TAB PO SCH (09:00)
--- NOTE | 2021-08-03 09:31 | Hospitalist Progress Note ---
Date of Service August 03, 2021 Assessment & Plan Plan: RUQ ABD Pain most likely secondary to GERD - start protonix 40mg PO QAM. - consider famotidine if Sx continue Chest Pain; Ischemic Cardiomyopathy Given extensive CAD history as well as characterization of pain, and associated symptoms, strong suspicion for ACS. - EKG without ST/T wave changes but hard to interpret given s/p PPM. Ordered repeat EKG - Troponin negative x3 - Consulted Cardiology (Dr. Xiong) given high suspicion for ACS - Sx have lasted more than one hour and patient's condition continues to be stable, making this an unlikely diagnoses Hypotension - continue LR @125cc/hr CKDIII Cr 2.39 - appears to be at chronic baseline (1.9-2.5). - continue to monitor daily Thrombocytopenia At chronic baseline, likely 2/2 CLL and chemotherapy. No s/s active bleeding - continue to monitor T2DM A1c 6.6 in 07/2020. Not on any home meds. 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 He states last night he ate macaroni salad and rice pudding for dinner and upon going to bed he felt discomfort in this ABD. He rates the pain as a 5/10 and it is persistent discomfort which does not wax and wane. He states that the discomfort is localized to the RUQ and does not radiate to his shoulders or his arms. Describes the discomfort as a "ball" stuck in his ABD and he states he feels bloated. Also describes a constant state of nausea but it is not severe enough to cause him to vomit. He has an occasional discomfort that is localized to this throat. He vomited last night which provide mild alleviation but the discomfort returned. He attempted to self treat with NG but it did not help. He denies CP with exertion and at rest. He denies dyspnea with exertion and at r est. Denies pain with inspiration. He states when he was around 22 y/o he had acid reflux and used to self treat with tums. But he states he has not had acid reflux in a long time. States his bowel movements have been normal. He has not noticed any blood in his stool or upon wiping. He has other episodes of vomiting. He drinks 12 beers a year. And quit smoking several years ago. Physical Exam Physical Exam: HEENT: Slight yellowish spots to his sclera BL. No injected conjunctiva. Cardiac: RRR, no rubs murmurs or gallops Pulm: no labored breathing ABD: No pain to palpation, normal bowel sounds, MSK: No swelling in his legs, no lesions to his ABD or chest Psych: AOx3 Results & Data Results & Data ([facility]) Vital Signs (Past 12 Hours) Vital Signs Temp Pulse Pulse Resp BP BP Pulse Ox 08/03/21 08:53 36.6 C 67 18 165/65 H 99 08/03/21 07:30 61 20 136/76 08/03/21 06:30 60 60 19 133/61 133/61 96 08/03/21 06:18 63 20 139/62 08/03/21 06:00 60 18 139/62 08/03/21 05:46 61 25 H 142/66 H 08/03/21 05:30 60 16 159/62 H 08/03/21 05:00 65 22 96/42 L 08/03/21 04:32 60 18 141/62 H 95 08/03/21 04:30 60 20 141/62 H 08/03/21 04:17 60 11 L 158/69 H 08/03/21 04:00 60 60 15 140/72 140/72 94 08/03/21 03:30 60 60 15 126/49 L 126/49 L 96 08/03/21 03:05 61 18 91/53 L 91 08/03/21 03:03 61 18 91/53 L 94 08/03/21 03:02 62 14 78/46 L 95 08/03/21 03:00 61 18 91 08/03/21 02:52 60 18 100/48 L 97 08/03/21 02:48 95 08/03/21 02:42 60 10 L 100/48 L 96 08/03/21 02:37 36.4 C L 62 18 72/40 L 95 08/03/21 02:36 62 10 L 72/40 L 93 08/03/21 02:35 63 13 93
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
--- NOTE | 2021-08-03 12:28 | Discharge Summary ---
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 Chest pain started at ~2200 last night, shortly after patient ate macaroni salad, and was not relieved by Nitropaste x3 at home. Patient was given Aspirin 324mg x1 by EMS en route to [facility] but reportedly vomited shortly after administration. Patient reports that he has only had infrequent mild exertional chest pains over the last 5-10 years - last cath was 3 years ago with multi-vessel disease but reportedly no vessel occlusion severe enough for stent placement. Sees Dr. Xiong ([facility]). Recently had PPM done for sick sinus syndrome. Admission Exam (Per Admitting) Constitutional WD/WN, vitals as above Eyes PERRL, conjunctivae normal, anicteric sclerae Respiratory normal respiratory effort Cardiovascular RRR, no murmur, no edema Chest (Breasts) Chest: normal inspection of chest Gastrointestinal (Abdomen) normal bowel sounds, soft, nontender, no hepatosplenomegaly Musculoskeletal No LE edema appreciated Skin no rashes, warm and dry Neurologic PERRL, EOMI, accommodation nl, no face palsy, no dysarthria Psychiatric A+Ox3, euthymic affect Discharge Data Consultations 08/03/21 05:01 ED Decision to Admit Stat 08/03/21 05:39 Consult Cardiology Routine Hospital Course (1) Abdominal pain: (2) Chest pain: (3) Hypotension: RUQ ABD Pain most likely secondary to GERD - discharge with protonix 40mg BID for one week - recommend PCP F/U for continued care Chest Pain; Ischemic Cardiomyopathy Given extensive CAD history as well as characterization of pain, and associated symptoms, strong suspicion for ACS. - EKG without ST/T wave changes but hard to interpret given s/p PPM. Ordered repeat EKG - Troponin negative x3 - Cardiology consulted, agreed less likely Sx were cardiac in nature. Patient directed to increase his Imdur to 60 mg in the morning and 30mg at night instead of 30 twice daily. - Sx continued for several hours after onset (more than one hour) making MA less likely Hypotension - resolved with LR @125cc/hr CKDIII Cr 2.39 - appears to be at chronic baseline (1.9-2.5). Thrombocytopenia At chronic baseline, likely 2/2 CLL and chemotherapy. No s/s active bleeding T2DM A1c 6.6 in 07/2020. Not on any home meds. HTN/HLD/Depression/CAD - hold all home meds while NPO Discharge Instructions Supervising Physician Co-Signing Physician Notes I personally examined the patient and verified all adams points of history and exam, discussed case, and agree with decision making with Sharifa Miller MS2 feeling better than before but ongoing discomfort vitals noted nad heent nc at mmm breathing unlabored no accessory muscles good effort skin no rashes no pallor or icterus mild epigastric discomfort no guarding/rebound upper GI pain - likely indigestion/reflux. given hours upon hours of unremitting symptoms, negative troponins are conclusive that this is noncardiac and therefore no further cardiac testing is necessary. PPI for a week or so,then try to wean. avoid fatty foods. safe/stable for home.
[2021-08-03] MEDS ORDERED: HEPARIN 100 UNIT/ML 5ML FLUSH ONE (14:57)
--- NOTE | 2021-08-03 18:00 | Billing Data ---
Date of Service August 03, 2021 Coding Level of Care Code 77280 OBS Care - Discharge
[2021-08-03] MEDS ORDERED: ISOSORBIDE MONO EXTENDED REL 30 MG TABCR PO SCH (21:00)
--- NOTE | 2021-08-03 21:46 | XCELERA ---
[id number]
--- NOTE | 2021-08-03 23:42 | Billing Data ---
Date of Service August 03, 2021 Coding Level of Care Code INT OBSERVATION CARE 70M LVL 3
--- NOTE | 2021-08-04 05:51 | Electrocardiogram Report ---
Test Reason : Blood Pressure : / mmHG Vent. Rate : 067 BPM Atrial Rate : 066 BPM P-R Int : 256 ms QRS Dur : 188 ms QT Int : 484 ms P-R-T Axes : 034 -76 073 degrees QTc Int : 511 ms AV dual-paced rhythm with prolonged AV conduction Abnormal ECG When compared with ECG of 02-AUG-2020 12:10, AV pacing has replaced atrial pacing Confirmed by Apollo Morales ([id number]) on 08/04/2021 5:51:37 AM Referred By: REFERRED SELF Confirmed By:Apollo Morales
--- NOTE | 2021-08-04 06:00 | Electrocardiogram Report ---
Test Reason : Blood Pressure : / mmHG Vent. Rate : 060 BPM Atrial Rate : 060 BPM P-R Int : 256 ms QRS Dur : 208 ms QT Int : 506 ms P-R-T Axes : 000 -75 081 degrees QTc Int : 506 ms AV dual-paced rhythm with prolonged AV conduction Abnormal ECG When compared with ECG of 03-AUG-2021 02:36, Vent. rate has decreased BY 7 BPM Confirmed by Apollo Morales ([id number]) on 08/04/2021 6:00:16 AM Referred By: REFERRED SELF Confirmed By:Apollo Morales
[2021-08-04] MEDS ORDERED: ISOSORBIDE MONO EXTENDED REL 60 MG TABCR PO SCH (09:00)
== END 2021-08-03 15:30 | disposition home or self-care (01) ==
LOC: ED 02:28 → 2S 02:28 → SUATTDRO 05:54 → 2S 06:45

== ENCOUNTER 2021-12-28 06:39 | Observation (INO) ==
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
[~2021-12-28 06:39] MED LIST changes: -BACITRACIN INJ 50,000 UNIT VIAL ONE; -BUPIVACAINE 0.25% 30 ML VIAL ONE; -LIDOCAINE HCL 1% 20 ML VIAL ONE; +SODIUM CHLORIDE 0.9% 1000ML IV SCH; +SUGAMMADEX SODIUM 200 MG/2 ML VIAL IV ONE; +ceFAZolin 330 MG/ML 1 GM VIAL ONE
[2021-12-28 07:14] LABS: Basophils # (auto) 0.06 K/uL (0-0.2); Basophils % (auto) 0.9 %; Eosinophils # (auto) 0.15 K/uL (0-0.50); Eosinophils % (auto) 2.2 %; Hemoglobin 13.7 g/dl (14.0-18.0); Immature Granulocytes # (auto) 0.02 K/uL (0.00-0.02); Immature Granulocytes % (auto) 0.3 %; Lymphocytes # (auto) 0.89 K/uL (1.2-3.4); Mean Corpuscular Hemoglobin 29.6 pg (25.0-34.0); Mean Corpuscular Hgb Conc 32.6 g/dL (32.0-36.0); Mean Corpuscular Volume 90.7 fL (80.0-100.0); Monocytes # (auto) 0.68 K/uL (0.24-0.82); Monocytes % (auto) 9.9 %; Neutrophils # (auto) 5.07 K/uL (1.4-6.5); Neutrophils % (auto) 73.7 %; Platelet Count 129 K/uL (130-400); RDW Coefficient of Variation 13.7 % (11.5-14.5); RDW Standard Deviation 44.5 fL (36.4-46.3); Red Blood Count 4.63 M/uL (4.63-6.08); White Blood Count 6.87 K/ul (4.8-10.8)
[2021-12-28] MEDS ORDERED: ONDANSETRON INJ 2 MG/ML 2 ML VIAL ONE (07:15)
[2021-12-28] MEDS ORDERED: ROCURONIUM BROMIDE 10 MG/ML 5 ML VIAL IV ONE ×3 (07:15→09:08)
[2021-12-28] MEDS ORDERED: DEXAMETHASONE SOD INJ 4 MG/ML VIAL ONE (07:15)
[2021-12-28] MEDS ORDERED: fentaNYL citrate 100 MCG/2 ML VIAL ONE (07:15)
[2021-12-28] MEDS ORDERED: PROPOFOL IV EMULSION 10 MG/ML 20 ML VIAL IV ONE (07:15)
--- NOTE | 2021-12-28 07:41 | History & Physical Bridge Note ---
Date of Service December 28, 2021 History & Physical Bridge Note I have examined the patient, reviewed the History & Physical and in the interval since the performance of the History & Physical I have noted the following changes of clinical significance: no changes noted at bedside all question answered
[2021-12-28] MEDS ORDERED: ePHEDrine sulfate 50 MG/ML AMP IV PRN (07:42)
[2021-12-28] MEDS ORDERED: ATROPINE SULFATE 0.1 MG/ML 10ML SYR IV PRN (07:42)
[2021-12-28] MEDS ORDERED: ONDANSETRON INJ 2 MG/ML 2 ML VIAL IV PRN ×2 (07:42→12:44)
[2021-12-28] MEDS ORDERED: fentaNYL citrate 100 MCG/2 ML VIAL IV PRN (07:42)
[2021-12-28] MEDS ORDERED: LIDOCAINE 1%/EPINEPHRINE 1:100,000 50 ML VIAL ONE (08:04)
[2021-12-28] MEDS ORDERED: SUCCINYLCHOLINE CHLORIDE 20 MG/ML 10 ML VIAL IV ONE (08:34)
[2021-12-28] MEDS ORDERED: OPTIRAY 300 IV PRN (08:42)
[2021-12-28] MEDS ORDERED: PHENYLEPHRINE HCL 10 MG/ML VIAL ONE (09:07)
[2021-12-28] MEDS ORDERED: GLUCAGON FOR INJ 1 MG VIAL ONE (09:14)
--- NOTE | 2021-12-28 09:31 | Fluoroscopy Report ---
INTRAOPERATIVE CHOLANGIOGRAM HISTORY: Post cholecystectomy. FLUOROSCOPY TIME: 5 seconds. 2 fluoroscopic spot images of the right upper quadrant. FINDINGS: Fluoroscopy was provided for an intraoperative cholangiogram status post cholecystectomy. C ontrast was injected through the cystic duct remnant. The common bile duct is normal in course and ca liber. There are no filling defects seen within the common bile duct to suggest a retained stone. Co ntrast extends into the small bowel. There is no intrahepatic bile duct dilatation. IMPRESSION: Fluoroscopy provided for an intraoperative cholangiogram status post cholecystectomy. No filling defects within the common bile duct. ACT 112: Negative or not required by law. Electronically signed by: Osiel Arango M.D. 12/28/2021 9:30 AM
--- NOTE | 2021-12-28 10:32 | Operative Report ---
PG Post Operative Report Pre & Post Diagnosis Operation Date: 12/28/21 08:20 Pre-Op Diagnosis: Cholelithasis with Chronic Cholecystitis Post-Op Diagnosis: Cholelithasis with Chronic Cholecystitis I identified the patient and participated in the time-out.: Yes Procedure Operation Date: 12/28/21 08:20 Actual Procedures p Laparoscopic Cholecystectomy with cholangiogram(Not Applicable) - Mendez Jay MD, FACS The patient was brought into the operating theater general endotracheal anesthesia supine position systemic antibiotics on board the abdomen prepped Betadine was solution properly draped timeout was had patient identified this point we made a small transverse incision about 6 cm above the umbilical crater away through a previously made scar from his previous bowel surgery we dissected down and were able to grasp the abdominal wall with Yolanda's and a small opening in the fascia was made 0 Vicryl suture was used to stay suture used a hemostat we dissected down to the I was free of any adhesions we then placed a 5 mm trocar at slow insufflation pneumoperitoneum was controlled with stay sutures after sufficiently introducing CO2 we placed the camera and look like we were at a pocket of adhesions circumferentially there was no open area to advance the camera however towards the right upper quadrant there was an area with fine adhesions he can almost transilluminate therefore we answered to that area were able to get towards the right upper quadrant and no more adhesions were appreciated however the patient did have significant fibrinous adhesions from the right lobe of the liver to the anterior abdominal wall on direct realization we placed a 5 mm epigastric trocar and 2 subcostal 5 mm ports the omentum was draped over the liver we freed it to the point that we were unable to see the gallbladder at this point everything significantly scarred in and we started dissecting from the liver edge where we can identify a structure that seems to be the gallbladder using the hook we freed up the chronic adhesions from that area we were able to grasp the structure with this confirmed there was a gallbladder and using sharp dissection and electrocautery we worked our way all the way down to the neck of the gallbladder this to took a significant amount of time to expose the area but we well away from any structure evaluated with no colon was not seen and duodenum was weighed once we dissected the neck of the gallbladder we were able to identify the cystic duct which was coming off the gallbladder itself we were able to get around and we identified the lymph node the [place] which was prominent actually took a biopsy and using a 10 mm trocar we placed a 10 mm clip in the gallbladder at the takeoff of the cystic duct the 5 mm was too small to transverse this we made an opening in the cystic duct where significant mount of debris extracted from the duct we milked what ever there was from the distal duct that we had exposed we do not see the common bile duct but we well away from it and once we have freed this mostly greenish gravel from the duct indicative of bilirubinate stones replaced for urethral catheter transversing abdominal wall and Angiocath into the cystic duct area x-ray was taken initial films showed no filling defects and proximal common bile duct and but the distal area did not taper off nicely and after seeing what we had extracted from the cystic duct at this point I gave 1 mg of glucagon flushed with normal saline and took another x-ray in that area deep and opened up nicely in the duodenum no filling defects were appreciated the ureteral cath was removed the cystic duct was secured with 3 clips and resected the artery identified and clipped approximately twice 1 distally and divided there was another small structure the proper lymphatic that we clipped proximally and distally and divided using the cautery and the hook and scissors we were able to elevate this thickened gallbladder and a plane of dissection from the liver markedly chronic inflamed and a few areas we got into the gallbladder some stones fell out and we we would retrieve them as we went along at the end of the case we will retrieve them more. Once the gallbladder was easily elevated from the liver bed we placed in an Endopouch and prior to taking the Endopouch out of the abdomen we went on and retrieve those large stones and placement pouch and took it out all intact through the epigastric port at this point the subhepatic suprahepatic area was checked for hemostasis appear satisfactory no obvious stones were identified we placed the camera right upper quadrant port site visualize her initial opening and entry in the abdomen we were away from adhesions no injury was identified we also looked at the epigastric area there was no bleeding identified there but the trocar was still present I elected to drain this with a 19 Neptali drain that was brought into from the epigastric area placed subhepatic area attached to the right upper quadrant trocar site with 2-0 silk suture the plain was positioned subhepatic leak. Prior to removing the camera and from the umbilical area we made sure that the trochars were removed there was no bleeding identified we then needed to close the fascial stitch in the epigastric 1 since we had enlarged the opening to accommodate a 12 mm trocar we closed it with interrupted 0 Vicryl sutures sufficient enough to close off the fascia 4-0 Monocryl was used to close these subcostal and epigastric trocar sites and also initial entry once we had tied the stay sutures 4-0 Monocryl was used there also the procedure was tolerated well by the patient estimated blood loss 30 cc patient was taken recovery in good condition addendum Marci fish is was present throughout the procedure and helped the retraction exposure and wound closure Addendum three quarters of the operative time involved dissecting out the gallbladder from the surrounding adhesions Talked to his Nirmal in the waiting room Surgeon Mendez Jay MD, FACS Power Distributor richie P[employer] Estimated Blood Loss 30 Findings Consistent with Post-Op Diagnosis Chronic cholecystitis cholelithiasis with severe adhesions Specimens Gallbladder and stones Drains 19 Neptali drain subhepatic coming out right upper quadrant trocar site Indications Chronic cholecystitis cholelithiasis with an acute attack approximately 4 months ago Description of Procedure merda I attest to the content of the Intraoperative Record and any orders documented therein. Any exceptions are noted below.
[2021-12-28] MEDS ORDERED: NovoLIN-R INSULIN PER UNIT CHARGE IV STA (11:13)
[2021-12-28] MEDS ORDERED: NovoLIN-R INSULIN PER UNIT CHARGE ONE (11:19)
--- NOTE | 2021-12-28 11:59 | Anesthesiology Progress Note ---
Date of Service December 28, 2021 Anesthesia Post Procedure Vital Signs Vital Signs: Temp Pulse Resp BP Pulse Ox O2 Del Method O2 Flow Rate 12/28/21 11:30 60 18 113/52 L 95 Nasal Cannula 2 12/28/21 11:20 60 17 107/52 L 93 Nasal Cannula 2 12/28/21 11:10 60 19 111/52 L 92 Nasal Cannula 2 12/28/21 11:00 60 16 106/50 L 92 Room Air 12/28/21 10:50 60 26 H 100/48 L 96 Oxymask 9 12/28/21 10:40 60 14 102/50 L 95 Oxymask 9 12/28/21 10:30 60 20 108/44 L 95 Oxymask 9 12/28/21 10:22 96.8 F L 62 18 106/49 L 96 Oxymask 9 12/28/21 07:08 98.4 F 89 18 160/66 H 96 Room Air Pain Intensity Right Flank: Pain Intensity: 3 Transfer of Care Handoff Completed per policy Notes Mental Status: alert / awake / arousable and participated in evaluation Patient Amnestic to Procedure: Yes Nausea / Vomiting: adequately controlled Pain: adequately controlled Airway Patency, RR, SpO2: stable & adequate BP & HR: stable & adequate Hydration State: stable & adequate Anesthetic Complications: no major complications apparent and Pt Satisfied with anesthetic care
[2021-12-28] MEDS ORDERED: GLUCOSE 10 TAB/TUBE PO PRN (12:44)
[2021-12-28] MEDS ORDERED: PHARMACY GLYCEMIC MGMT CONSULT PRN (12:44)
[2021-12-28] MEDS ORDERED: GLUCOSE 40% GEL 15 GM TUBE PO PRN (12:44)
[2021-12-28] MEDS ORDERED: GLUCAGON FOR INJ 1 MG VIAL SQ PRN (12:44)
[2021-12-28] MEDS ORDERED: DEXTROSE 50% 50 ML SYRINGE IV PRN (12:44)
[2021-12-28] MEDS ORDERED: MoRPHine SULFATE 4 MG/ML 1 ML CARP\\VIAL IV PRN (12:44)
[2021-12-28] MEDS ORDERED: INSULIN ASPART PER UNIT SC SCH (12:44)
[2021-12-28] MEDS ORDERED: oxyCODONE/ACETAMINOPHEN 5mg/325mg TAB PO PRN ×2 (12:44)
[2021-12-28] MEDS ORDERED: CARBOHYDRATES FOR HYPOGLYCEMIA PO PRN (12:44)
[2021-12-28] MEDS ORDERED: MoRPHine SULFATE 4 MG/ML 1 ML CARP\\VIAL ONE ×2 (13:50→16:37)
[2021-12-28] MEDS: MoRPHine SULFATE 2 MG/ML CARP IV PRN ×2 (13:52→16:40)
[2021-12-28] MEDS: LACTATED RINGER'S 1,000 ML IV SCH (14:37)
--- NOTE | 2021-12-28 14:45 | Pharmacy Report ---
Pharmacy Glycemic Short Note 2 - Date of Service December 28, 2021 - Glycemic Short BSG Results (Last 24 hours): 12/28/21 12/28/21 12/28/21 06:59 10:25 12:28 POC Glucose 123 H 248 H 209 H OUTPATIENT ANTIDIABETIC REGIMEN: * prandin * A1c 6.6% 07/2020 ASSESSMENT: * 81 year old now s/p cholecystectomy, POD 0. Patient is a type 2 diabetic managed on oral agent at home. BSGs elevated postop, likely related to ster oids given. Checked with RN and confirmed IV insulin given around lunch time in OR per chart. Entered novolog with looser CR for lunch, held CF for check. * Plan to start novolog stress of 3 with dinner. Will also add small scale for NPH as likely BSGs will remain elevated later today from steroids PLAN FOR INPATIENT GLYCEMIC CONTROL: * Hold outpatient oral diabetes medications * Basal insulin * NPH 10-20 units daily with dinner per BSG scale * Bolus insulin * NovoLog per scale ACHS or Q6hrs while NPO * Goal Range: Low 110 mg/dL - High 140 mg/dL * Correction Factor: 15 mg/dL/unit * Nutritional / Prandial insulin per carb ratio of 1 unit per 6 grams CHO consumed
[2021-12-28] MEDS ORDERED: NovoLIN-N (NPH) PER UNIT CHARGE SQ SCH (18:00)
[2021-12-28] MEDS: INSULIN ASPART PER UNIT SC SCH ×2 (18:06→21:14)
[2021-12-28] MEDS ORDERED: CITALOPRAM 20 MG TAB PO SCH (21:00)
[2021-12-28] MEDS ORDERED: TAMSULOSIN HCL 0.4 MG CAP PO SCH (21:00)
[2021-12-28] MEDS: hydrALAZINE HCL 25 MG TAB PO SCH (21:06)
[2021-12-28] MEDS: carvediloL 6.25 MG TAB PO SCH (21:07)
[2021-12-29] MEDS ORDERED: INSULIN ASPART PER UNIT SC SCH
[2021-12-29] MEDS: LACTATED RINGER'S 1,000 ML IV SCH (00:24)
--- NOTE | 2021-12-29 06:31 | Surgery Progress Note ---
Date of Service December 29, 2021 Assessment & Plan (1) Cholelithiasis with chronic cholecystitis: Plan: Intraoperative findings were discussed with the patient specifically tell him that the gallbladder was scarred and significantly but everything went fine with surgery we checked the ducts draining from the liver and it was fine The patient can be discharged today after he has a regular diet this morning We will leave the drain in and see him in the office on Saturday and asked him to hold off ibrutinib until we take the drain out He should not drive or lift anything heavier than 10 pounds We will send him home on Augmentin for 5 days Admission and Anticipated Discharge Date Admission Date: December 28, 2021 Subjective No acute problems overnight he states he ate some liquids without any issue and actually he feels a lot better than preop Physical Exam Physical Exam: Alert coherent resting comfortably in bed without any pain Neptali drainage serosanguineous nonbilious The abdomen completely benign the dressing on the trocar sites without any bloodstained Results & Data ([facility]) Vital Signs (Past 12 Hours) Vital Signs Temp Pulse Resp BP Pulse Ox O2 Del Method 12/29/21 03:04 37.0 C 60 18 169/71 H 94 Room Air 12/28/21 23:23 36.8 C 61 16 137/62 93 Room Air PG Care Time/CCT Total # of Minutes Spent Total Time Spent with Patient: Total time spent is greater than 50% in coordination of care (as documented) at patient's floor/unit and/or counseling patient: Coding Level of Care Code None Diagnoses Cholelithiasis with chronic cholecystitis K80.10
[2021-12-29] MEDS: carvediloL 6.25 MG TAB PO SCH (08:30)
[2021-12-29] MEDS: hydrALAZINE HCL 25 MG TAB PO SCH (08:30)
[2021-12-29] MEDS ORDERED: allopurinoL 100 MG TAB PO SCH (09:00)
[2021-12-29] MEDS: INSULIN ASPART PER UNIT SC SCH ×2 (09:08→12:45)
[2021-12-29 09:14] LABS: Basophils # (auto) 0.02 K/uL (0-0.2); Basophils % (auto) 0.2 %; Eosinophils # (auto) 0.01 K/uL (0-0.50); Eosinophils % (auto) 0.1 %; Hematocrit (blood only) 39.5 % (40.1-51.0); Hemoglobin 13.2 g/dl (14.0-18.0); Immature Granulocytes # (auto) 0.04 K/uL (0.00-0.02); Immature Granulocytes % (auto) 0.5 %; Lymphocytes # (auto) 0.78 K/uL (1.2-3.4); Lymphocytes % (auto) 9.2 %; Mean Corpuscular Hemoglobin 29.6 pg (25.0-34.0); Mean Corpuscular Hgb Conc 33.4 g/dL (32.0-36.0); Mean Corpuscular Volume 88.6 fL (80.0-100.0); Mean Platelet Volume 11.8 fL (9.4-12.4); Monocytes # (auto) 0.64 K/uL (0.24-0.82); Monocytes % (auto) 7.6 %; Neutrophils # (auto) 6.95 K/uL (1.4-6.5); Neutrophils % (auto) 82.4 %; Platelet Count 120 K/uL (130-400); RDW Coefficient of Variation 13.6 % (11.5-14.5); RDW Standard Deviation 43.5 fL (36.4-46.3); Red Blood Count 4.46 M/uL (4.63-6.08); White Blood Count 8.44 K/ul (4.8-10.8)
[2021-12-29 09:19] LABS: Estimated Average Glucose 171 mg/dl; Hemoglobin A1C 7.6 % (4.5-5.6)
[2021-12-29 09:37] LABS: Albumin Level 3.6 gm/dl (3.4-5.0); BUN Creatinine Ratio 16.6 (10-20); Bilirubin Direct 0.2 mg/dl (0-0.2); Bilirubin,Total 1.1 mg/dl (0.2-1.0); Calcium 8.5 mg/dl (8.5-10.1); Est GFR (African American) 34.7 ml/min; Est GFR (Non-African American) 29.9 ml/min; Potassium 4.6 mmol/L (3.5-5.1); Total Protein 5.3 gm/dl (6.0-8.3)
--- NOTE | 2021-12-29 13:50 | Discharge Summary ---
Date of Service December 29, 2021 Principal Diagnosis Cholelithiasis, chronic cholecystitis Discharge Exam Constitutional WD/WN, vitals as above Respiratory normal respiratory effort, lungs clear to auscultation Gastrointestinal (Abdomen) Inspection/Auscultation: + abdominal surgical incision (dry) and + abdominal surgical drain present (serous drainage); abdomen not distended Discharge Data Allergies Allergy/AdvReac Type Severity Reaction Status Date / Time Iodinated Contrast Media Allergy Intermediate Hives Verified 12/28/21 07:03 tetracycline Allergy Intermediate SWELLING Verified 12/28/21 07:03 OF GENITALS metformin AdvReac Intermediate muscle Verified 12/28/21 07:03 soreness Aamainl-XAZ-ObW Reductase AdvReac Mild JOINT PAIN Verified 12/28/21 07:03 Inhibitor [Iuzbzyg-Eci-Yyu Reductase Inhibitor] Procedures Performed Operation Date: 12/28/21 08:20 Actual Procedures p Laparoscopic Cholecystectomy with cholangiogram(Not Applicable) - Mendez Jay MD, FACS Ordered Studies 12/28/21 08:20 [place] cholangiogram OR Routine Hospital Course (1) Cholelithiasis with chronic cholecystitis: 81 y/o male was taken to the operating room for laparoscopic cholecystectomy. Neptali drain was placed, he transferred to the surgical floor for overnight obs ervation. In the morning he was able to advance diet and tolerate oral analgesics. He was stable for discharge home with the drain to be removed in clinic in 3 days. Total Time Total Time Spent Total Time Spent (In Minutes): 15 Discharge Plan Discharge Items Patient Disposition: Home - Self-Care Reason For Visit: Cholelithasis with Chronic Cholecystitis Discharge Diagnosis: laparoscopic cholecystectomy Activity: Per Instructions section Lifting: No more than 10 pounds Bathing Comment: may shower starting 12/29/21;no soaking in tubs/pools Exercise/Sports: Wait until after follow-up appointment Driving/Machine Use: no driving while taking any narcotics for pain Non-emergency contact: Surgeon Call non-emergency contact if: you have any medication questions, your symptoms worsen, your pain is not controlled, your pain is concerning for you, you have a fever, your temperature is above 101.5, your wound has increased redness, your wound has increased drainage and your wound pain has increased Follow-up/Referrals: Mendez Jay MD, FACS [Surgeon] - 01/01/22 1:30 pm (You have an appt on Monday 01/01 at 1:30 to have the drain removed.) Linwood Alberto MD [Primary Care Provider] - Diet: Carb Consistent or DM2 Addtl Attending Provider Instructions: You have small white bandages over your incisions called steri strips. you may shower with these on. Please keep them in place. They will fall off on their own within 7-10 days Empty drain 2-3 times daily as needed Wait until after the drain is removed to take Imbruvica Pending Studies at Discharge: Yes Studies:: surgical pathology Stand-Alone Forms: My [facility] Medications and DC Order Prescriptions: New oxycodone-acetaminophen [Percocet] 5-325 mg tablet 1 - 2 tab PO .q4-6h PRN (Reason: pain, for initial therapy, max 6 tabs per day) Qty: 15 0RF amoxicillin-pot clavulanate 875-125 mg tablet 1 tab PO BID 5 Days Qty: 10 0RF Continued allopurinol 100 mg tablet 100 mg PO QAM terbinafine HCl 250 mg Tablet 0 mg PO DAILY PRN (Reason: toe nail fungus) repaglinide [Prandin] 2 mg Tablet 4 mg PO TID citalopram [Celexa] 20 mg Tablet 20 mg PO QPM tamsulosin 0.4 mg Capsule 0.4 mg PO PM nitroglycerin 0.4 mg Tablet, Sublingual 1 tab Sublingual UD PRN (Reason: Chest Pain) Rx Instructions: NEEDED FOR CHEST PAIN : ONE TABLET UNDER THE TONGUE EVERY 5 MINUTES X THREE DOSES. cholecalciferol (vitamin D3) [Vitamin D3] 5,000 unit Tablet 5,000 unit PO Q OTHER DAY multivitamin Tablet 1 tab PO QAM coQ10 (ubiquinol) 200 mg Capsule 400 mg PO QPM glucosamine-chondroitin 167-133 mg Capsule 1 cap PO BID carvedilol 3.125 mg tablet 6.25 mg PO BID losartan 50 mg tablet 25 mg PO HS hydralazine 10 mg tablet 25 mg PO BID Clindamycin Soln See Rx Instructions .ROUTE .COMPLEX Rx Instructions: Take small amount skin every day furosemide 20 mg tablet 20 mg PO DAILY PRN (Reason: Edema) ferrous sulfate 325 mg (65 mg iron) Tablet 325 mg PO Q OTHER DAY isosorbide mononitrate 30 mg Tablet Extended Release 24 Hr 30 mg PO BID Discontinued Imbruvica 140 mg Tablet 140 mg PO HS Discharge Orders: Discharge Order (Routine); Ordered 12/29/21 Ordered By: Yoav Jacobo Jr Admission Data Admit Date/Time: 12/28/21 10:29 Attending Provider: Mendez Jay Admit Provider: Mendez Jay Primary Care Provider: Linwood Alberto Other Interventions: Discharge Summary Assessment (RN) Last Done: 12/29/21 13:08 Coding Level of Care Code D/C DAY MANAGEMENT <30 MINS Diagnoses Cholelithiasis with chronic cholecystitis K80.10
== END 2021-12-29 14:00 | disposition home or self-care (01) ==
LOC: PACUINP 06:39 → ASU 06:39 → 3W 17:11
DX: Z91.041 Radiographic dye allergy status; K80.10 Calculus of gallbladder with chronic cholecystitis without obstruction; Z88.1 Allergy status to other antibiotic agents; Z87.891 Personal history of nicotine dependence; Z79.899 Other long term (current) drug therapy; Z88.8 Allergy status to other drugs, medicaments and biological substances

== ENCOUNTER 2022-12-23 03:07 | Inpatient (IN) ==
[2022-12-23 04:31] LABS: Albumin Globulin Ratio 1.3 (0.9-2); Albumin Level 3.4 gm/dl (3.4-5.0); BUN Creatinine Ratio 16.9 (10-20); Calcium 9.1 mg/dl (8.6-10.3); Creatinine Clr Calc Pharmacy 35.2 ml/min; Est GFR (African American) 32.9 ml/min; Est GFR (Non-African American) 28.4 ml/min; Globulin 2.6 gm/dl (2.5-4.0); Magnesium 1.8 mg/dl (1.7-2.4); Potassium 4.5 mmol/L (3.5-5.1)
[2022-12-23 04:36] LABS: Troponin I High Sensitivity 19.5 pg/ml (0-20)
[2022-12-23 04:44] LABS: Basophils # (auto) 0.02 K/uL (0-0.2); Basophils % (auto) 0.6 %; Eosinophils # (auto) 0.01 K/uL (0-0.50); Eosinophils % (auto) 0.3 %; Hematocrit (blood only) 39.9 % (42.0-52.0); Hemoglobin 13.6 g/dl (14.0-18.0); Immature Granulocytes # (auto) 0.02 K/uL (0.01-0.20); Immature Granulocytes % (auto) 0.6 %; Lymphocytes # (auto) 0.39 K/uL (1.2-3.4); Lymphocytes % (auto) 12.4 %; Mean Corpuscular Hemoglobin 29.8 pg (25.0-34.0); Mean Corpuscular Hgb Conc 34.1 g/dL (32.0-36.0); Mean Corpuscular Volume 87.3 fL (80.0-100.0); Mean Platelet Volume 11.9 fL (9.4-12.4); Neutrophils # (auto) 2.11 K/uL (1.40-6.50); Neutrophils % (auto) 67.1 %; Platelet Count 112 K/uL (130-400); RDW Standard Deviation 41.1 fL (36.4-46.3); Red Blood Count 4.57 M/uL (4.70-6.10); White Blood Count 3.15 K/ul (4.8-10.8)
--- NOTE | 2022-12-23 04:48 | Emergency Department Note ---
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 12/23/2022 7:30 AM Chest X-Ray 12/23/22 03:41 XR chest 1V portable CLINICAL HISTORY: Cough. COMPARISON STUDY: Chest radiograph December 19, 2021. FINDINGS: There is no pneumothorax or pleural effusion. A right subclavian pacer, median sternotomy wires and mediastinal surgical clips are noted. Cardiomegaly is unchanged. Mild interstitial thickening has developed. IMPRESSION: Cardiomegaly. Mild interstitial thickening. This could reflect mild pulmonary edema or an infectious process. ACT 112: Negative or not required by law. Electronically signed by: Godfrey Bustillos M.D. 12/23/2022 7:26 AM Abdomen/Pelvis CT 12/23/22 06:08 CT OF THE ABDOMEN AND PELVIS WITHOUT CONTRAST CLINICAL HISTORY: Abdominal pain, vomiting/diarrhea. COMPARISON STUDY: CT of the abdomen and pelvis August 09, 2021. Abdominal ultrasound May 21, 2016. TECHNIQUE: Axial images of the abdomen and pelvis were obtained without IV contrast. Images were reviewed in the axial, sagittal, and coronal planes. Automated exposure control was utilized for the study. A dose lowering technique was utilized adhering to the principles of ALARA. FINDINGS: Alveolar opacities within the lower lungs are noted. There is no pneumatosis, free air or portal venous gas. Evaluation of the abdomen and pelvis is suboptimal on this unenhanced examination. Moderate splenomegaly has mildly increased since CT of August 09, 2021. There is no significant biliary ductal dilatation status post cholecystectomy. Left renal atrophy is again noted. There is no hydronephrosis. Adrenal glands and spleen are unremarkable. There is no evidence for a bowel obstruction. Colonic diverticulosis is present. There is no evidence for acute diverticulitis. The appendix is normal. Prostate is mildly enlarged. There is a 1.5 x 0.6 cm bladder calculus. Mild diffuse sclerosis of visualized skeletal structures is noted. This was shown on prior CT and is a nonspecific finding. Umbilical hernia repair with mesh is present. IMPRESSION: 1. No acute process within the abdomen or pelvis on unenhanced exam. No bowel obstruction. 2. Colonic diverticulosis. No evidence for acute diverticulitis. 3. Moderate splenomegaly, mildly increased since CT of August 20, 2021. Redemonstration of mild diffuse skeletal sclerosis. These findings are nonspecific but could be seen in a lymphoproliferative process. 4. 1.5 x 0.6 cm bladder calculus ACT 112: Negative or not required by law. Electronically signed by: Godfrey Bustillos M.D. 12/23/2022 7:[address] 12/23/22 06:08 CT OF THE CHEST WITHOUT IV CONTRAST CLINICAL HISTORY: Cough. COMPARISON STUDY: Chest CT March 28, 2012 and chest radiograph performed today. CT DOSE: 1716.55 mGy.cm TECHNIQUE: Axial images of the chest were obtained without IV contrast. Images were reviewed in the axial, sagittal, and coronal planes. IV contrast was not administered for this examination. Automated exposure control was utilized for the study. A dose lowering technique was utilized adhering to the principles of ALARA. FINDINGS: A right subclavian pacer is place. There is mild cardiomegaly and extensive coronary artery calcification. There is no pericardial effusion. There is no pneumothorax or pleural effusion. Moderate scattered alveolar opacities th roughout the lungs are present. There are most pronounced within the bilateral lower lobes. No cavitation is present. Central airways are patent. Mildly enlarged subcarinal lymph node measures 2.2 x 1.2 cm. Moderate splenomegaly has mildly increased since abdominal CT of August 09, 2021. Please note that the abdomen and pelvis CT will be reported separately. Diffuse skeletal sclerosis is noted. This is stable to slightly increased since CT of March 28, 2012. IMPRESSION: 1. Moderate scattered alveolar opacities throughout the lungs suggestive of pneumonia. 2. Mild cardiomegaly. Extensive coronary artery calcification. 3. Moderate splenomegaly, mildly increased since CT of August 20, 2021. Diffuse skeletal sclerosis, stable to slightly increased since CT of March 28, 2012. These findings are nonspecific but could be seen in a lymphoproliferative process. 4. Mildly enlarged subcarinal lymph node. ACT 112: Negative or not required by law. Electronically signed by: Godfrey Bustillos M.D. 12/23/2022 7:14 AM Discharge Plan Visit Data Chief Complaint: Cough Stated Complaint: COUGHING SINCE SATURDAY ED Provider: Cherie Coelho Discharge Problem: Cough, Multifocal pneumonia, CKD (chronic kidney disease), Leukopenia Patient Disposition: Admitted As Inpatient Discharge Instructions Interventions: ED Discharge Assessment Last Done: 12/23/22 12:57
[2022-12-23] MEDS ORDERED: ACETAMINOPHEN 1,000 MG/100 ML VIAL IV STA (04:53)
[2022-12-23] MEDS ORDERED: ALBUT/IPRATROP 3MG/0.5MG NEB 3 ML VIAL NEB STA ×2 (04:54→06:10)
[2022-12-23] MEDS: SODIUM CHLORIDE 0.9% 1000ML 1,000 ML IV SCH ×2 (04:58→12:44)
[2022-12-23 06:16] LABS: Adenovirus PCR Not Detected (NotDetected); Bordetella parapertussis PCR Not Detected (NotDetected); Bordetella pertussis PCR Not Detected (NotDetected); Chlamydia pneumoniae PCR Not Detected (NotDetected); Coronavirus 229E PCR Not Detected (NotDetected); Coronavirus CoV-2 (COVID19)PCR Not Detected (NotDetected); Coronavirus HKU1 PCR Not Detected (NotDetected); Coronavirus NL63 PCR Not Detected (NotDetected); Coronavirus OC43PCR Not Detected (NotDetected); Human Metapneumovirus PCR Not Detected (NotDetected); Influenza A PCR Not Detected (NotDetected); Influenza B PCR Not Detected (NotDetected); Mycoplasma pneumoniae PCR Not Detected (NotDetected); Parainfluenza Virus 1 PCR Not Detected (NotDetected); Parainfluenza Virus 2 PCR Not Detected (NotDetected); Parainfluenza Virus 3 PCR Not Detected (NotDetected); Parainfluenza Virus 4 PCR Not Detected (NotDetected); Respiratory Syncytial VirusPCR Not Detected (NotDetected); Rhinovirus/Enterovirus PCR Not Detected (NotDetected)
--- NOTE | 2022-12-23 07:17 | CT Scan Report ---
CT OF THE CHEST WITHOUT IV CONTRAST CLINICAL HISTORY: Cough. COMPARISON STUDY: Chest CT March 28, 2012 and chest radiograph performed today. CT DOSE: 1716.55 mGy.cm TECHNIQUE: Axial images of the chest were obtained without IV contrast. Images were reviewed in the axial, sagittal, and coronal planes. IV contrast was not administered for this examination. Automat ed exposure control was utilized for the study. A dose lowering technique was utilized adhering to t he principles of ALARA. FINDINGS: A right subclavian pacer is place. There is mild cardiomegaly and extensive coronary arter y calcification. There is no pericardial effusion. There is no pneumothorax or pleural effusion. Mode rate scattered alveolar opacities throughout the lungs are present. There are most pronounced within the bilateral lower lobes. No cavitation is present. Central airways are patent. Mildly enlarged subc arinal lymph node measures 2.2 x 1.2 cm. Moderate splenomegaly has mildly increased since abdominal C T of August 09, 2021. Please note that the abdomen and pelvis CT will be reported separately. Diffuse s keletal sclerosis is noted. This is stable to slightly increased since CT of March 28, 2012. IMPRESSION: 1. Moderate scattered alveolar opacities throughout the lungs suggestive of pneumonia. 2. Mild cardiomegaly. Extensive coronary artery calcification. 3. Moderate splenomegaly, mildly increased since CT of August 20, 2021. Diffuse skeletal sclerosis, st able to slightly increased since CT of March 28, 2012. These findings are nonspecific but could be seen in a lymphoproliferative process. 4. Mildly enlarged subcarinal lymph node. ACT 112: Negative or not required by law. Electronically signed by: Godfrey Bustillos M.D. 12/23/2022 7:14 AM
[2022-12-23] MEDS ORDERED: cefTRIAXone SODIUM 2,000 MG/70 ML BAG IV STA (07:21)
[2022-12-23] MEDS ORDERED: SODIUM CHLORIDE 0.9% 1000ML 1,000 ML IV ONE ×2 (07:23→07:54)
[2022-12-23] MEDS ORDERED: AZITHROMYCIN 250 MG TAB PO ONE (07:24)
--- NOTE | 2022-12-23 07:24 | CT Scan Report ---
CT OF THE ABDOMEN AND PELVIS WITHOUT CONTRAST CLINICAL HISTORY: Abdominal pain, vomiting/diarrhea. COMPARISON STUDY: CT of the abdomen and pelvis August 09, 2021. Abdominal ultrasound May 21, 2016 . TECHNIQUE: Axial images of the abdomen and pelvis were obtained without IV contrast. Images were revi ewed in the axial, sagittal, and coronal planes. Automated exposure control was utilized for the lurdes dy. A dose lowering technique was utilized adhering to the principles of ALARA. FINDINGS: Alveolar opacities within the lower lungs are noted. There is no pneumatosis, free air or p ortal venous gas. Evaluation of the abdomen and pelvis is suboptimal on this unenhanced examination. Moderate splenomegaly has mildly increased since CT of August 09, 2021. There is no significant biliary ductal dilatation status post cholecystectomy. Left renal atrophy is again noted. There is no hydron ephrosis. Adrenal glands and spleen are unremarkable. There is no evidence for a bowel obstruction. C olonic diverticulosis is present. There is no evidence for acute diverticulitis. The appendix is norm al. Prostate is mildly enlarged. There is a 1.5 x 0.6 cm bladder calculus. Mild diffuse sclerosis of visualized skeletal structures is noted. This was shown on prior CT and is a nonspecific finding. Umb ilical hernia repair with mesh is present. IMPRESSION: 1. No acute process within the abdomen or pelvis on unenhanced exam. No bowel obstruction. 2. Colonic diverticulosis. No evidence for acute diverticulitis. 3. Moderate splenomegaly, mildly increased since CT of August 20, 2021. Redemonstration of mild diffus e skeletal sclerosis. These findings are nonspecific but could be seen in a lymphoproliferative proce ss. 4. 1.5 x 0.6 cm bladder calculus ACT 112: Negative or not required by law. Electronically signed by: Godfrey Bustillos M.D. 12/23/2022 7:22 AM
--- NOTE | 2022-12-23 07:27 | XRay Report ---
XR chest 1V portable CLINICAL HISTORY: Cough. COMPARISON STUDY: Chest radiograph December 19, 2021. FINDINGS: There is no pneumothorax or pleural effusion. A right subclavian pacer, median sternotomy w ires and mediastinal surgical clips are noted. Cardiomegaly is unchanged. Mild interstitial thickenin g has developed. IMPRESSION: Cardiomegaly. Mild interstitial thickening. This could reflect mild pulmonary edema or an infectious process. ACT 112: Negative or not required by law. Electronically signed by: Godfrey Bustillos M.D. 12/23/2022 7:26 AM
--- NOTE | 2022-12-23 07:31 | XRay Report ---
KUB CLINICAL HISTORY: diarrhea COMPARISON STUDY: CT of the abdomen and pelvis August 09, 2021. FINDINGS: Pacer leads are partially imaged. The bowel gas pattern is normal. Amount of stool is withi n normal limits. IMPRESSION: Unremarkable KUB. ACT 112: Negative or not required by law. Electronically signed by: Godfrey Bustillos M.D. 12/23/2022 7:30 AM
--- NOTE | 2022-12-23 08:20 | Electrocardiogram Report ---
Test Reason : Blood Pressure : / mmHG Vent. Rate : 081 BPM Atrial Rate : 081 BPM P-R Int : 218 ms QRS Dur : 118 ms QT Int : 380 ms P-R-T Axes : 011 -57 002 degrees QTc Int : 441 ms Sinus rhythm with 1st degree A-V block Pulmonary disease pattern Incomplete right bundle branch block Left anterior fascicular block Possible Old Septal infarct Nonspecific T wave abnormality Anterior leads Abnormal ECG When compared with ECG of 03-AUG-2021 06:08, Sinus rhythm has replaced Electronic ventricular pacemaker Confirmed by Tarun Ortega ([id number]) on 12/23/2022 8:20:00 AM Referred By: Vane Diamond Confirmed By:Tarun Ortega
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
[2022-12-23 10:26] LABS: Appearance Urine Cloudy (Clear); Bacteria Urine Automated Negative (Negative); Bilirubin Urine Negative (Negative); Blood Urine Negative (Negative); Color Urine Dark Yellow; Epithelial Cell Urine Auto 20-30 /lpf (0-5); Glucose Urine UA Negative (Negative); Ketones Urine Trace (Negative); Leukocyte Esterase Urine Trace (Negative); Nitrite Urine Negative (Negative); Protein Urine 2+ (Negative); RBC Urine Automated 0-4 /hpf (0-4); Specific Gravity Urine 1.021 (1.000-1.030); Urobilinogen Urine Negative (Negative)
[2022-12-23 11:18] LABS: Amorphous Sediment Urine Present (None Prsent)
[2022-12-23] MEDS ORDERED: ACETAMINOPHEN 325 MG TAB PO PRN (13:05)
[2022-12-23] MEDS ORDERED: ONDANSETRON INJ 2 MG/ML 2 ML VIAL IV PRN (13:05)
[2022-12-23] MEDS ORDERED: AZITHROMYCIN 500 MG in DEXTROSE 5% 250 ML IV SCH (13:05)
[2022-12-23] MEDS ORDERED: PIPERACILLIN/TAZOBACTAM 4.5 GM (over 30 mins) IV ONE (13:30)
[2022-12-23] MEDS: carvediloL 6.25 MG TAB PO SCH ×2 (13:55→21:18)
[2022-12-23] MEDS: MULTIVITAMIN TAB PO SCH (13:55)
[2022-12-23] MEDS: PANTOprazole 40 MG TAB PO SCH (13:55)
[2022-12-23] MEDS: allopurinoL 100 MG TAB PO SCH ×2 (13:55→14:48)
[2022-12-23] MEDS: ISOSORBIDE MONO EXTENDED REL 30 MG TABCR PO SCH ×2 (13:57→21:18)
[2022-12-23] MEDS ORDERED: GLUCAGON FOR INJ 1 MG VIAL SQ PRN (14:41)
[2022-12-23] MEDS ORDERED: GLUCOSE 40% GEL 15 GM TUBE PO PRN (14:41)
[2022-12-23] MEDS ORDERED: GLUCOSE 10 TAB/TUBE PO PRN (14:41)
[2022-12-23] MEDS ORDERED: CARBOHYDRATES FOR HYPOGLYCEMIA PO PRN (14:41)
[2022-12-23] MEDS ORDERED: DEXTROSE 50% 50 ML SYRINGE IV PRN (14:41)
[2022-12-23] MEDS ORDERED: POLYETHYLENE (MIRALAX) 17 GM PACK PO PRN (16:25)
[2022-12-23] MEDS: INSULIN ASPART PER UNIT CHARGE SC SCH ×2 (17:49→21:00)
[2022-12-23] MEDS: PIPERACILLIN/TAZOBACTAM 4.5 GM in DEXTROSE 5% 100 ML IV SCH (18:40)
[2022-12-23] MEDS: CITALOPRAM 20 MG TAB PO SCH (21:14)
[2022-12-23] MEDS: TAMSULOSIN HCL 0.4 MG CAP PO SCH (21:15)
[2022-12-23] MEDS: HEPARIN SOD 5,000 UNIT/0.5 ML VIAL SQ SCH (21:20)
[2022-12-24] MEDS: PIPERACILLIN/TAZOBACTAM 4.5 GM in DEXTROSE 5% 100 ML IV SCH ×3 (03:08→18:10)
[2022-12-24 08:05] LABS: Hematocrit (blood only) 37.8 % (42.0-52.0); Hemoglobin 12.8 g/dl (14.0-18.0); Mean Corpuscular Hemoglobin 29.7 pg (25.0-34.0); Mean Corpuscular Hgb Conc 33.9 g/dL (32.0-36.0); Mean Corpuscular Volume 87.7 fL (80.0-100.0); Platelet Count 114 K/uL (130-400); RDW Coefficient of Variation 13.1 % (11.5-14.5); RDW Standard Deviation 42.2 fL (36.4-46.3); Red Blood Count 4.31 M/uL (4.70-6.10); White Blood Count 2.44 K/ul (4.8-10.8)
[2022-12-24] MEDS: ISOSORBIDE MONO EXTENDED REL 30 MG TABCR PO SCH ×2 (08:11→21:17)
[2022-12-24] MEDS: carvediloL 6.25 MG TAB PO SCH (08:11)
[2022-12-24] MEDS: allopurinoL 100 MG TAB PO SCH (08:11)
[2022-12-24] MEDS: PANTOprazole 40 MG TAB PO SCH (08:11)
[2022-12-24] MEDS: HEPARIN SOD 5,000 UNIT/0.5 ML VIAL SQ SCH ×2 (08:11→21:19)
[2022-12-24] MEDS: MULTIVITAMIN TAB PO SCH (08:11)
[2022-12-24] MEDS: HEPARIN 100 UNIT/ML 5ML FLUSH FLUSH PRN ×3 (08:12→21:54)
[2022-12-24] MEDS: INSULIN ASPART PER UNIT CHARGE SC SCH ×4 (08:20→21:22)
[2022-12-24 08:21] LABS: Calcium 9.1 mg/dl (8.6-10.3); Creatinine Clr Calc Pharmacy 32.9 ml/min; Est GFR (African American) 30.8 ml/min; Est GFR (Non-African American) 26.5 ml/min; Potassium 4.4 mmol/L (3.5-5.1)
[2022-12-24 08:27] LABS: Acanthocytes 1+; Basophils # (auto) 0.01 K/uL (0-0.2); Basophils % (auto) 0.4 %; Echinocytes 1+; Eosinophils # (auto) 0.04 K/uL (0-0.50); Eosinophils % (auto) 1.6 %; Immature Granulocytes # (auto) 0.03 K/uL (0.01-0.20); Immature Granulocytes % (auto) 1.2 %; Lymphocytes # (auto) 0.63 K/uL (1.2-3.4); Lymphocytes % (auto) 25.8 %; Monocytes # (auto) 0.32 K/uL (0.11-0.59); Monocytes % (auto) 13.1 %; Neutrophils # (auto) 1.41 K/uL (1.40-6.50); Neutrophils % (auto) 57.9 %; Polychromasia 1+
[2022-12-24] MEDS ORDERED: METOPROLOL SUCC 25MG EXT REL TAB PO SCH ×2 (09:00→21:00)
[2022-12-24] MEDS ORDERED: CHOLECALCIFEROL 5,000 UNITS 125 MCG TAB PO SCH (09:00)
[2022-12-24 09:15] LABS: Estimated Average Glucose 143 mg/dl; Hemoglobin A1C 6.6 % (4.5-5.6)
[2022-12-24] MEDS: AZITHROMYCIN 250 MG TAB PO SCH (10:48)
[2022-12-24] MEDS: methylPREDNISolone 40 MG in SYRINGE 0 ML IV SCH ×2 (16:55→21:35)
--- NOTE | 2022-12-24 17:38 | Hospitalist Progress Note ---
Date of Service December 24, 2022 Assessment & Plan (1) Multifocal pneumonia: Plan: I suspect he has aspiration pneumonitis rather than bacterial pneumonia. He did have some vomiting prior to this admission. He has rapidly improved. He is now on parenteral steroid therapy. He remains on intravenous Zosyn and oral azithromycin for now. MRSA swab is negative. He is now on room air. Biofire negative. Speech Therapy evaluation appreciated. No significant findings (2) Pancytopenia: Plan: Chronic. Due to CLL and chemotherapy. Serial labs (3) Chronic lymphocytic leukemia (CLL), B-cell: Plan: Takes daily zanubrutinib. Resume at discharge. (4) Weight loss: Plan: As occurred over last 16 months, however is in the setting of Ozempic use. Card Boxer consulted, added Boost BID. (5) Type II diabetes mellitus: Plan: A1c 6.8% in May (at goal for age). SSI prn. Overall notes bad appetite and significant constipation on Ozempic. Will defer adjustment to PCP. (6) Chronic kidney disease, stage 3: Plan: Stable. Monitor intake and output. Serial labs (7) GERD (gastroesophageal reflux disease): Plan: Stable. Continue PPI therapy (8) Coronary artery disease: Plan: Stable. Continue current medical management. Hx CAD s/p CABG x5 in 1999, and high degree AV block, s/p dual chamber pace. Not anticoagulated due to advice of Hematology (per Cardiology note 08/2021). Continiue Coreg, isosorbide mononitrate. Holding losartan and hydralazine due to low BP on admission. Will resume at discharge Plan Anticipate discharge to home tomorrow, December 25 Admission and Anticipated Discharge Date Admission Date: December 23, 2022 Subjective Alert and oriented. I suspect his current malady is due to aspiration pneumonitis from his recent vomiting. MRSA swab is negative. He has rapidly improved. I doubt this is bacterial pneumonia. He states he takes metoprolol XL rather than Coreg and this switch has been made. Speech therapy has evaluated him and he is cleared for oral intake. Renal function is stable. MRSA swab is negative. He currently is on intravenous Zosyn and oral azithromycin. He probably will go home tomorrow, December 25 Review of Systems Review of Systems: Constitutional-no fever or chills ENT-no blurred vision, no double vision, no epistaxis, no sore throat Respiratory-occasional nonproductive cough. No wheezing. Shortness of breath has resolved Cardiac-no palpitations, no chest pain, no syncope GI-no nausea, vomiting, diarrhea, melena, hematochezia -no urinary retention, no urinary incontinence, no dysuria, no hematuria Musculoskeletal-no joint pain, no muscle tenderness Skin-no bruising, no rashes, no pruritus Neuro-no isolated weakness, no paresthesia, no weakness Psych-no depression, no anxiety Physical Exam Physical Exam: General-alert and oriented x3, no fevers, no chills HEENT-head atraumatic and normocephalic, pupils equal and reactive to light, extraocular muscles intact Neck-no lymphadenopathy or thyromegaly, trachea midline Chest-clear to auscultation percussion. No rales wheezing or rhonchi Cardiac-regular rate and rhythm, normal S1 and S2 Abdomen-normal bowel sounds, nontender, no hepatosplenomegaly Extremities-no cyanosis, clubbing, or edema Neuro-cranial nerves II through XII intact, motor and sensory function within normal limits, strength symmetrical , no focal deficits Psych-normal affect, normal mood Results & Data Results & Data Vital Signs (Past 12 Hours) Vital Signs Temp Pulse Resp BP Pulse Ox O2 Del Method 12/24/22 15:05 36.5 C 65 16 119/67 96 Room Air 12/24/22 07:50 Room Air 12/24/22 07:44 36.6 C 75 18 145/75 H 94 Room Air Laboratory Results 12/24/22 07:47 12/24/22 07:47 PG Care Time/CCT Total # of Minutes Spent Total Time Spent with Patient: Total time spent is greater than 50% in coordination of care (as documented) at patient's floor/unit and/or counseling patient: Coding Level of Care Code 56367 SUB INP/OBS CARE 3/50MIN Diagnoses Multifocal pneumonia J18.9 Pancytopenia D61.818 Chronic lymphocytic leukemia (CLL), B-cell C91.10 Weight loss R63.4 Type II diabetes mellitus E11.9 Chronic kidney disease, stage 3 N18.3 GERD (gastroesophageal reflux disease) K21.9 Coronary artery disease I25.10
[2022-12-24] MEDS: TAMSULOSIN HCL 0.4 MG CAP PO SCH (21:17)
[2022-12-24] MEDS: CITALOPRAM 20 MG TAB PO SCH (21:18)
[2022-12-24] MEDS ORDERED: Nursing to Pharmacy Communication SCH (21:30)
[2022-12-25] MEDS: PIPERACILLIN/TAZOBACTAM 4.5 GM in DEXTROSE 5% 100 ML IV SCH (02:31)
[2022-12-25] MEDS: methylPREDNISolone 40 MG in SYRINGE 0 ML IV SCH (06:18)
[2022-12-25] MEDS: MULTIVITAMIN TAB PO SCH (08:23)
[2022-12-25] MEDS: allopurinoL 100 MG TAB PO SCH (08:23)
[2022-12-25] MEDS: AZITHROMYCIN 250 MG TAB PO SCH (08:23)
[2022-12-25] MEDS: ISOSORBIDE MONO EXTENDED REL 30 MG TABCR PO SCH (08:23)
[2022-12-25] MEDS: PANTOprazole 40 MG TAB PO SCH (08:23)
[2022-12-25] MEDS: HEPARIN SOD 5,000 UNIT/0.5 ML VIAL SQ SCH (08:24)
[2022-12-25] MEDS: INSULIN ASPART PER UNIT CHARGE SC SCH ×2 (08:28→13:06)
[2022-12-25 08:34] LABS: Hematocrit (blood only) 39.8 % (42.0-52.0); Hemoglobin 13.3 g/dl (14.0-18.0); Mean Corpuscular Hemoglobin 29.3 pg (25.0-34.0); Mean Corpuscular Hgb Conc 33.4 g/dL (32.0-36.0); Mean Corpuscular Volume 87.7 fL (80.0-100.0); Mean Platelet Volume 12.8 fL (9.4-12.4); Platelet Count 131 K/uL (130-400); RDW Coefficient of Variation 12.9 % (11.5-14.5); RDW Standard Deviation 41.4 fL (36.4-46.3); Red Blood Count 4.54 M/uL (4.70-6.10); White Blood Count 2.11 K/ul (4.8-10.8)
[2022-12-25 08:35] LABS: ALC (manual) 0.08 K/uL (1.2-3.4); ANC (manual) 1.98 K/uL (1.4-6.5); Echinocytes 1+; Lymphocytes # (manual) 0.08 K/uL (1.2-3.4); Lymphocytes % (manual) 4 %; Metamyelocytes # (manual) 0.02 K/uL (0-0); Metamyelocytes % (manual) 1 %; Monocytes # (manual) 0.02 K/uL (0.11-0.59); Monocytes % (manual) 1 %; Neutrophils # (manual) 1.98 K/uL (1.40-6.50); Neutrophils % (manual) 94 %
[2022-12-25 08:41] LABS: BUN Creatinine Ratio 20.4 (10-20); Calcium 8.9 mg/dl (8.6-10.3); Creatinine Clr Calc Pharmacy 32.8 ml/min; Est GFR (African American) 30.6 ml/min; Est GFR (Non-African American) 26.4 ml/min; Potassium 4.7 mmol/L (3.5-5.1)
--- NOTE | 2022-12-25 10:52 | XRay Report ---
XR chest 1V portable HISTORY: Follow-up pneumonia. aspiration pneumonitis COMPARISON: Chest 12/23/2022. FINDINGS: There are low lung volumes with mild elevation of the right hemidiaphragm, unchanged. The h eart remains enlarged. There postoperative changes and a right-sided pacemaker and left portacatheter unchanged in position. No pneumothorax. No pleural effusions. No evidence for pulmonary edema. Patch y bibasilar densities are better appreciated on the recent chest CT. IMPRESSION: Small patchy bibasilar densities are better appreciated on the prior chest CT. ACT 112: Negative or not required by law. Electronically signed by: Osiel Arango M.D. 12/25/2022 10:50 AM
--- NOTE | 2022-12-25 12:36 | Discharge Summary ---
Date of Service December 25, 2022 Admission HPI Per Admitting Provider 82-year-old male past medical history significant for CLL, DM 2, CKD stage III with a baseline creatinine around 2, hypertension, anemia of chronic disease who presents to the emergency room for persistent cough, as well as some intermittent episodes of vomiting and abdominal discomfort at home. Over the last several days has had poor oral intake due to these things. He does note that he had a fever to 101 F on Saturday. He reports that he took some leftover Augmentin that he had at home for previous UTI, took 1 dose of Augmentin on Saturday, Saturday, and . In the ER patient was tachypneic, afebrile, initially hypotensive into 90s systolic which resolved with IV fluids to 120s systolic, with oxygen saturation of 94% on room air. Noted to be leukopenic which is chronic, creatinine of 2.13 which is also chronic, BNP of 155, bio fire negative. CT chest, abdomen, pelvis was performed: Evidence of multifocal pneumonia on imaging, as well as mildly increased moderate splenomegaly from previous CT scan. Colonic diverticulosis without evidence of acute diverticulitis, no bowel obstruction, 1.5 x 0.6 cm bladder calculus without evidence of other calculi. Urinalysis ordered but not able to be collected as of yet. Principal Diagnosis Suspected aspiration pneumonitis, nausea and vomiting Discharge Exam General-alert and oriented x3, no fevers, no chills HEENT-head atraumatic and normocephalic, pupils equal and reactive to light, extraocular muscles intact Neck-no lymphadenopathy or thyromegaly, trachea midline Chest-clear to auscultation percussion. No rales wheezing or rhonchi Cardiac-regular rate and rhythm, normal S1 and S2 Abdomen-normal bowel sounds, nontender, no hepatosplenomegaly Extremities-no cyanosis, clubbing, or edema Neuro-cranial nerves II through XII intact, motor and sensory function within normal limits, strength symmetrical , no focal deficits Psych-normal affect, normal mood Discharge Data Allergies Allergy/AdvReac Type Severity Reaction Status Date / Time Iodinated Contrast Media Allergy Intermediate Hives Verified 09/11/22 14:52 tetracycline Allergy Intermediate SWELLING Verified 09/11/22 14:52 OF GENITALS metformin AdvReac Intermediate muscle Verified 09/11/22 14:52 soreness Rezable-QYG-CtS Reductase AdvReac Mild JOINT PAIN Verified 09/11/22 14:52 Inhibitor [Nswvkdg-Fdj-Tdd Reductase Inhibitor] Consultations 12/23/22 08:03 ED Decision to Admit Stat Ordered Studies 12/23/22 06:08 CT abd pelvis wo con Stat CT chest diagnostic wo con Stat Hospital Course (1) Multifocal pneumonia: Suspected aspiration pneumonitis on admission rather than bacterial pneumonia. He did have some vomiting prior to this admission. He has rapidly improved. He was treated while hospitalized with parenteral steroids and will be discharged on a prednisone tapering dose. Treated while hospitalized with intravenous Zosyn and oral azithromycin. Continue oral azithromycin on discharge for 5 more days. MRSA swab is negative. He is now on room air. Biofire negative. Speech Therapy evaluation appreciated. No significant findings (2) Pancytopenia: Chronic. Due to CLL and chemotherapy. Serial labs (3) Chronic lymphocytic leukemia (CLL), B-cell: Takes daily zanubrutinib. Resume at discharge. (4) Weight loss: As occurred over last 16 months, however is in the setting of Ozempic use. Manugrapher consulted, added Boost BID. (5) Type II diabetes mellitus: A1c 6.8% in May (at goal for age). SSI prn. Overall notes bad appetite and significant constipation on Ozempic. Will defer adjustment to PCP. (6) Chronic kidney disease, stage 3: Stable. Monitor intake and output. Serial labs (7) GERD (gastroesophageal reflux disease): Stable. Continue PPI therapy (8) Coronary artery disease: Stable. Continue current medical management. Hx CAD s/p CABG x5 in 1999, and high degree AV block, s/p dual chamber pace. Not anticoagulated due to advice of Hematology (per Cardiology note 08/2021). Continiue Coreg, isosorbide mononitrate. Holding losartan and hydralazine due to low BP on admission. Will resume at discharge Plan Home today, December 25 Total Time Total Time Spent Total Time Spent (In Minutes): 45 minutes Discharge Plan Discharge Items Patient Disposition: Home - Self-Care Reason For Visit: CAP, PANCYTOPENIA, WEAKNESS Discharge Diagnosis: Suspected aspiration pneumonitis, transient nausea and vomiting Activity: Resume your previous activity Non-emergency contact: Primary Care Provider Call non-emergency contact if: you have any medication questions and your symptoms worsen Follow-up/Referrals: Natalya Calabrese MD [Primary Care Provider] - Diet: Regular and Heart Healthy Addtl Attending Provider Instructions: Take azithromycin daily for 5 more days. Take prednisone in a tapering dose fashion as directed until gone Pending Studies at Discharge: No Stand-Alone Forms: My [facility], Smoking Cessation Medications and DC Order Prescriptions: New azithromycin 250 mg Tablet 500 mg PO DAILY Qty: 5 0RF prednisone 10 mg tablet See Rx Instructions .ROUTE .COMPLEX Qty: 12 0RF Rx Instructions: 10 mg orally 3 times a day for 2 days, then 10 mg twice a day for 2 days, then 10 mg once a day for 2 days, then stop metoprolol succinate 25 mg Tablet Extended Release 24 Hr 25 mg PO HS Qty: 0 0RF Continued zanubrutinib 80 mg capsule 80 mg PO BID allopurinol 100 mg tablet 100 mg PO QAM terbinafine HCl 250 mg Tablet 0 mg PO DAILY PRN (Reason: toe nail fungus) repaglinide [Prandin] 2 mg Tablet 4 mg PO TID citalopram [Celexa] 20 mg Tablet 20 mg PO QPM tamsulosin 0.4 mg Capsule 0.4 mg PO PM nitroglycerin 0.4 mg Tablet, Sublingual 1 tab Sublingual UD PRN (Reason: Chest Pain) Rx Instructions: NEEDED FOR CHEST PAIN : ONE TABLET UNDER THE TONGUE EVERY 5 MINUTES X THREE DOSES. cholecalciferol (vitamin D3) [Vitamin D3] 5,000 unit Tablet 5,000 unit PO Q OTHER DAY multivitamin Tablet 1 tab PO QAM coQ10 (ubiquinol) 200 mg Capsule 400 mg PO QPM glucosamine-chondroitin 167-133 mg Capsule 1 cap PO BID losartan 50 mg tablet 25 mg PO HS hydralazine 10 mg tablet 25 mg PO BID Clindamycin Soln See Rx Instructions .ROUTE .COMPLEX Rx Instructions: Take small amount skin every day furosemide 20 mg tablet 20 mg PO DAILY PRN (Reason: Edema) ferrous sulfate 325 mg (65 mg iron) Tablet 325 mg PO Q OTHER DAY isosorbide mononitrate 30 mg Tablet Extended Release 24 Hr 30 mg PO BID Discontinued amoxicillin-pot clavulanate [Augmentin] 500-125 mg tablet 1 tab PO BID Qty: 28 0RF carvedilol 3.125 mg tablet 6.25 mg PO BID Discharge Orders: Discharge Order (Routine); Ordered 12/25/22 Ordered By: Jamie Will Admission Data Admit Date/Time: 12/23/22 09:14 Attending Provider: Jamie Will Admit Provider: Mikaela Raza Primary Care Provider: Natalya Calabrese Other Providers: Mikaela Raza ; [facility] Coding Level of Care Code 70332 INP/OBS DISCH >30 MIN Diagnoses Multifocal pneumonia J18.9 Pancytopenia D61.818 Chronic lymphocytic leukemia (CLL), B-cell C91.10 Weight loss R63.4 Type II diabetes mellitus E11.9 Chronic kidney disease, stage 3 N18.3 GERD (gastroesophageal reflux disease) K21.9 Coronary artery disease I25.10
[2022-12-25] MEDS ORDERED: LANTUS PER UNIT CHARGE SQ ONE (13:00)
== END 2022-12-25 13:37 | disposition home or self-care (01) | DRG 177 ==
LOC: ED 03:07 → 3W 09:14 → SUATTDRO 09:14 → 3W 12:57

== ENCOUNTER 2023-10-07 06:09 | Observation (INO) ==
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
[2023-10-07] MEDS ORDERED: oxyCODONE/ACETAMINOPHEN 5mg/325mg TAB PO PRN (06:54)
[2023-10-07] MEDS ORDERED: MoRPHine SULFATE 2 MG/ML CARP IV PRN (06:54)
[2023-10-07] MEDS ORDERED: ONDANSETRON INJ 2 MG/ML 2 ML VIAL IV PRN (06:54)
[2023-10-07 06:55] LABS: Basophils # (auto) 0.04 K/uL (0.00-0.20); Basophils % (auto) 0.8 %; Immature Granulocytes # (auto) 0.03 K/uL (0.01-0.20); Immature Granulocytes % (auto) 0.6 %; Lymphocytes # (auto) 0.75 K/uL (1.20-3.40); Lymphocytes % (auto) 14.9 %; Mean Corpuscular Hemoglobin 29.9 pg (25.0-34.0); Mean Corpuscular Hgb Conc 32.6 g/dL (32.0-36.0); Mean Corpuscular Volume 91.8 fL (80.0-100.0); Mean Platelet Volume 12.1 fL (9.4-12.4); Monocytes # (auto) 0.78 K/uL (0.11-0.59); Monocytes % (auto) 15.5 %; Neutrophils # (auto) 3.34 K/uL (1.40-6.50); Neutrophils % (auto) 66.2 %; Platelet Count 118 K/uL (130-400); RDW Coefficient of Variation 14.2 % (11.5-14.5); RDW Standard Deviation 47.8 fL (36.4-46.3); Red Blood Count 5.01 M/uL (4.70-6.10); White Blood Count 5.04 K/ul (4.8-10.8)
[2023-10-07] MEDS ORDERED: NITROGLYCERIN SL 0.4 MG/TAB TAB SL PRN (06:57)
[2023-10-07] MEDS: SODIUM CHLORIDE 0.9% 1000ML IV SCH (06:57)
[2023-10-07] MEDS ORDERED: FUROSEMIDE 20 MG TAB PO PRN (06:57)
[2023-10-07] MEDS ORDERED: CLOTRIMAZOLE 1% CR 15 GM TUBE TOP PRN (06:57)
[2023-10-07] MEDS ORDERED: fentaNYL citrate PF 100 MCG/2 ML VIAL ONE (07:07)
[2023-10-07] MEDS ORDERED: ePHEDrine sulfate 50 MG/ML AMP IV PRN (07:37)
[2023-10-07] MEDS ORDERED: PROMETHAZINE HCL 6.25 MG in SODIUM CHLORIDE 0.9% 50 ML IV PRN (07:37)
[2023-10-07] MEDS ORDERED: HYDROmorphone INJ 1 MG/ML SYRINGE IV PRN (07:37)
[2023-10-07] MEDS ORDERED: ATROPINE SULFATE 0.1 MG/ML 10ML SYR IV PRN (07:37)
[2023-10-07] MEDS: CIPROFLOXACIN / D5W 400 MG/200 ML BAG IV SCH (07:49)
[2023-10-07] MEDS ORDERED: REPAGLINIDE 2 MG PO SCH (08:00)
[2023-10-07] MEDS ORDERED: LIDOCAINE 2% 2 ML VIAL/AMP(20MG/ML) INFIL ONE (08:04)
[2023-10-07] MEDS ORDERED: ROCURONIUM BROMIDE 10 MG/ML 5 ML VIAL IV ONE (08:04)
[2023-10-07] MEDS ORDERED: PROPOFOL IV EMULSION 10 MG/ML 20 ML VIAL IV ONE (08:04)
[2023-10-07] MEDS ORDERED: ONDANSETRON INJ 2 MG/ML 2 ML VIAL ONE (08:04)
[2023-10-07] MEDS ORDERED: SUGAMMADEX SODIUM 200 MG/2 ML VIAL IV ONE (08:05)
[2023-10-07] MEDS ORDERED: PHENYLEPHRINE 100MCG/ML 10ML SYR IV ONE (08:08)
[2023-10-07] MEDS ORDERED: ePHEDrine sulfate 50 MG/5 ML SYR ONE (08:08)
--- NOTE | 2023-10-07 09:06 | Operative Report ---
PG Post Operative Report Pre & Post Diagnosis Operation Date: 10/07/23 07:50 Pre-Op Diagnosis: Benign Prostatic Hyperplasia, Large bladder stone and bladder outlet obstruction with prostate enlargement Post-Op Diagnosis: Benign Prostatic Hyperplasia, Large bladder stone and bladder outlet obstruction with prostate enlargement I identified the patient and participated in the time-out.: Yes Procedure Operation Date: 10/07/23 07:50 Actual Procedures Cystoscopy with urethral dilation, fulguration of bladder lesions/ulcer x 6, Cystolithopaxy (Bladder Stone Fragmentation and Removal), and Transurethral Resection of the Prostate - Pee Quintanilla DO Surgeon Pee Quintanilla, II, DO Engine Repairer None Estimated Blood Loss 5 Findings Consistent with Post-Op Diagnosis Large approx 3.3 cm stone of the base of the bladder with multiple smaller 3-5 mm stones. Very Large median lobe with anterior enlargement of Prostate with obstruction and projection of prostate into bladder. Large ulcerated and irriated lesions on the posterior wall and base. Most significant along the right lateral wall. 6 areas were fulgurated to destroy the edematous vascular lesions and to control bleeding from ulceration. Specimens Prostate adenoma. Bladder stones Drains 22Fr 3-way Catheter Anesthesia Type General Complications none Disposition Disposition: Recovery Room Indications Patient with obstruction due to prostate enlargement. Risks and benefits discussed at length. Description of Procedure Patient was consented and brought back to the operating room. Patient was placed under anesthesia in the supine position and moved to the dorsal lithotomy position. Patient was prepped and draped in the regular sterile fashion. A time out was completed. A 30degree Cystoscope was placed into the bladder and the entire bladder was examined. The meatus had to be dilated due to area of stricture. After the dil ation was complete the scope was able to be easily placed into the bladder. The UO's were identified as well as the bladder neck, trigone, dome, and the other important landmarks. The prostatic urethra and large lobes/adenoma was assessed and the veru and bladder neck identified and area/size was assessed. The extremely large bladder stone was found in the base of bladder. The stone was elongated and approximately 3.3 cm in the longest dimension. Stone had situated self in the base of the bladder underneath the very large median lobe. With manipulation the stone was able to be displaced into the posterior portion of the bladder. The entire base of the bladder and dome and lateral raphael were assessed. There was some mild inflammatory changes along the base. There was much more considerable ulcerated edematous and vascular areas on the posterior wall and most specifically the right lateral wall. These lesions appeared to be between 5 and 10 mm and had some areas of ulcerati on with some active bleeding. Additionally there was numerous small stones in the base of the bladder all under 8 mm. The laser fiber was selected. The stones were first destroyed and extracted. T he very large stone had to be fractured into numerous pieces and irrigated free. Once all of the stone pieces have been cleared and all of the smaller stones irrigated and flushed clear the bladder was inspected again. A large amount of prostate from the anterior and left lateral lobe was found to be projecting into the bladder. The extremely large median lobe was obstructing a majority of the prostatic urethra. The resection scope was placed and the fine bipolar loop was selected. Starting at the 5 and 7 o'clock positions, a channel was created from bladder neck to the veru. Resection was then taken from the 1 and 11 o'clock position and swept down towards the channel at the 6 o'clock position. Along the left lateral lobe and the anterior portion of the prostate a large amount of tissue was noted to be projecting in the bladder. This had to be extensively resected. The Specimen was removed and sent for analysis. The resection bed and any bleeding areas were fulgurated/cauterized and the entire area inspected. All bleeding was controlled. The channel had been drastically improved. The bulkiness and obstructive issues were cleared and the channel appeared to be open. All bleeding had been controlled. The loop was then used to fulgurate 6 areas on the posterior wall and right lateral wall which appeared to be bleeding ulcerated and edematous lesions. The bladder was inspected a final time. The bladder was emptied and irrigated. All specimen and debris was removed. The scope was removed with the bladder partially full. A catheter was placed and balloon elevated. This was easily irrigated. The patient was cleaned, aroused from anesthesia, and transferred to the pacu in stable condition having tolerated the procedure well with no complications. I was present and participated in all aspects of the procedure. The patient will be monitored in the PACU until transferred. Will plan to observe overnight and plan to follow-up in approximately 10 days for catheter removal I attest to the content of the Intraoperative Record and any orders documented therein. Any exceptions are noted below.
--- NOTE | 2023-10-07 09:44 | Anesthesiology Progress Note ---
Date of Service October 07, 2023 Anesthesia Post Procedure Vital Signs Vital Signs: Temp Pulse Resp BP Pulse Ox O2 Del Method O2 Flow Rate 10/07/23 09:40 36.7 C 66 12 136/63 96 Room Air 10/07/23 09:30 67 12 127/60 94 Room Air 10/07/23 09:20 62 12 126/69 99 Oxymask 4 10/07/23 09:10 69 12 128/59 L 100 Oxymask 9 10/07/23 09:03 36.2 C L 73 16 136/60 99 Oxymask 9 10/07/23 06:45 36.7 C 85 20 135/69 99 Room Air Transfer of Care Handoff Completed per policy Notes Mental Status: alert / awake / arousable and participated in evaluation Nausea / Vomiting: adequately controlled Pain: adequately controlled Airway Patency, RR, SpO2: stable & adequate BP & HR: stable & adequate Hydration State: stable & adequate Anesthetic Complications: no major complications apparent and Pt Satisfied with anesthetic care
[2023-10-07] MEDS ORDERED: DEXTROSE 50% 50 ML SYRINGE IV PRN (10:30)
[2023-10-07] MEDS ORDERED: GLUCOSE 40% GEL 15 GM TUBE PO PRN (10:30)
[2023-10-07] MEDS ORDERED: GLUCAGON FOR INJ 1 MG VIAL IM PRN (10:30)
[2023-10-07] MEDS ORDERED: GLUCOSE 10 TAB/TUBE PO PRN (10:30)
[2023-10-07] MEDS ORDERED: CARBOHYDRATES FOR HYPOGLYCEMIA PO PRN (10:30)
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
[2023-10-07] MEDS: SODIUM CHLORIDE 0.9% 1,000 ML IV SCH (10:38)
[2023-10-07] MEDS: LANTUS PER UNIT CHARGE SQ SCH (10:40)
[2023-10-07] MEDS ORDERED: PHARMACY GLYCEMIC MGMT CONSULT PRN (10:45)
[2023-10-07] MEDS: ISOSORBIDE MONO EXTENDED REL 30 MG TABCR PO SCH (10:54)
[2023-10-07] MEDS: allopurinoL 100 MG TAB PO SCH (10:54)
[2023-10-07] MEDS: ceFAZolin 2000MG 2,000 MG/15 ML SYR IV SCH (10:54)
[2023-10-07] MEDS: ISOSORBIDE MONO EXTENDED REL 30 MG TABCR PO STA (11:56)
[2023-10-07] MEDS: INSULIN ASPART PER UNIT CHARGE SC SCH (11:57)
[2023-10-07] MEDS: CITALOPRAM 20 MG TAB PO SCH (21:03)
[2023-10-07] MEDS: TAMSULOSIN HCL 0.4 MG CAP PO SCH (21:03)
[2023-10-07] MEDS: METOPROLOL SUCC 25MG EXT REL TAB PO SCH (21:03)
[2023-10-08 07:11] LABS: BUN Creatinine Ratio 15.1 (10-20); Calcium 7.9 mg/dl (8.6-10.3); Creatinine Clr Calc Pharmacy 30.8 ml/min; Est GFR (African American) 28.8 ml/min; Est GFR (Non-African American) 24.8 ml/min; Potassium 4.3 mmol/L (3.5-5.1)
[2023-10-08 07:17] LABS: Basophils # (auto) 0.01 K/uL (0.00-0.20); Basophils % (auto) 0.2 %; Eosinophils # (auto) 0.07 K/uL (0.00-0.50); Eosinophils % (auto) 1.7 %; Hematocrit (blood only) 37.7 % (42.0-52.0); Hemoglobin 12.4 g/dl (14.0-18.0); Immature Granulocytes # (auto) 0.06 K/uL (0.01-0.20); Immature Granulocytes % (auto) 1.5 %; Lymphocytes # (auto) 0.47 K/uL (1.20-3.40); Lymphocytes % (auto) 11.4 %; Mean Corpuscular Hemoglobin 30.1 pg (25.0-34.0); Mean Corpuscular Hgb Conc 32.9 g/dL (32.0-36.0); Mean Corpuscular Volume 91.5 fL (80.0-100.0); Mean Platelet Volume 11.8 fL (9.4-12.4); Monocytes # (auto) 0.63 K/uL (0.11-0.59); Monocytes % (auto) 15.3 %; Neutrophils # (auto) 2.87 K/uL (1.40-6.50); Neutrophils % (auto) 69.9 %; Platelet Count 92 K/uL (130-400); RDW Coefficient of Variation 14.2 % (11.5-14.5); RDW Standard Deviation 47.8 fL (36.4-46.3); Red Blood Count 4.12 M/uL (4.70-6.10); White Blood Count 4.11 K/ul (4.8-10.8)
--- NOTE | 2023-10-08 10:30 | Urology Progress Note ---
Date of Service October 08, 2023 Assessment & Plan (1) BPH loc w urin obs/LUTS: (2) Bladder stone: Plan: Pt POD #1 s/p cystoscopy with cystolitholapaxy, fulguration of bladder lesion/ulcer and transurethral resection of prostate Doing well, progressing as expected Afebrile with stable vitals Labs reviewedcreatinine 2.38, WBC 4.11, hemoglobin 12.[address] PO diet [address] River catheter intact, patent and draining clear yellow urine with CBI on slow CBI clamped in am, rechecked urine mid morning and remains clear yellow Patent is ready for discharge now Maintain River catheter Discharge home with course of antibiotics Expected clinical course reviewed, all questions answered Will arrange outpatient follow-up with our service for voiding trial Admission and Anticipated Discharge Date Admission Date: October 07, 2023 Subjective Patient seen and examined at bedside this morning He is awake and resting in bed No issues overnight Denies pain River is patent and draining clear yellow urine with CBI on slow CBI clamped during exam Denies nausea, vomiting, fever or chills Review of Systems Constitutional: as per Subjective / HPI Gastrointestinal: as per Subjective / HPI Genitourinary: + as per Subjective / HPI Physical Exam Constitutional: well developed and well nourished; no acute distress Respiratory: normal respiratory effort; no respiratory distress and no labored breathing Gastrointestinal (Abdomen): Inspection/Auscultation: abdomen normal to inspection Musculoskeletal: Head/Neck/Chest: normocephalic Neurologic: moves all extremities and awake Psychiatric: Orientation: alert and oriented x 3 Genitourinary: River patent and draining clear yellow urine with CBI on slow, CBI clamped during exam Results & Data Vital Signs (Past 12 Hours) Vital Signs Temp Pulse Pulse Resp BP Pulse Ox O2 Del Method 10/08/23 07:46 37.2 C 63 16 125/59 L 96 Room Air 10/08/23 02:30 71 22 99 10/07/23 23:05 68 23 98 PG Care Time/CCT Total # of Minutes Spent Total Time Spent with Patient: Total time spent is greater than 50% in coordination of care (as documented) at patient's floor/unit and/or counseling patient: Coding Level of Care Code None Diagnoses BPH loc w urin obs/LUTS N40.1 Bladder stone N21.0
--- NOTE | 2023-10-08 11:28 | Discharge Summary ---
Date of Service October 08, 2023 Admission HPI Per Admitting Provider Patient here for procedure. No changes in medical issues. No major changes in urinary issues. Continued issues and concerns. No change in pain or discomfort. No severe fevers or chills. No chest pain or shortness of breath. Risks and benefits discussed at length for procedure. These include bleeding, infection, injury to surrounding tissues or organs, and risks associated with anesthesia. Patient and/or family states understanding and agrees to proceed. Consent and supporting information completed. Admission Exam Per Admitting Provider General: Alert/Arousable. No Acute illness. HEENT: Inspection normal. Normal inspection of face. Normal inspection of neck. Psychologic: Normal affect/No change in mentation. Respiratory: No use of accessory muscles. No respiratory changes or exacerbation or changes with tachypnea or dyspnea. Cardiovascular: No tachycardia Skin: [place] and Dry. No new rashes or visible lesions. Abdomen: Normal inspection. No guarding. Principal Diagnosis BPH w/ LUTS Discharge Exam Constitutional well developed and well nourished; no acute distress Respiratory normal respiratory effort; no respiratory distress and no labored breathing Gastrointestinal (Abdomen) Inspection/Auscultation: abdomen normal to inspection Musculoskeletal Head/Neck/Chest: normocephalic Neurologic moves all extremities and awake Psychiatric Orientation: alert and oriented x 3 Discharge Data Allergies Allergy/AdvReac Type Severity Reaction Status Date / Time atenolol Allergy Intermediate Hypotension Verified 10/07/23 06:26 canagliflozin [From Invokana] Allergy Intermediate muscle Verified 10/07/23 06:26 pain ? Iodinated Contrast Media Allergy Intermediate Hives Verified 10/07/23 06:26 lisinopril Allergy Intermediate Hypotension Verified 10/07/23 06:26 niacin [From Advicor] Allergy Intermediate muscle Verified 10/07/23 06:26 aches ranolazine [From Ranexa] Allergy Intermediate Muscle Pain Verified 10/07/23 06:26 red yeast rice Allergy Intermediate muscle Verified 10/07/23 06:26 aches tetracycline Allergy Intermediate SWELLING Verified 10/07/23 06:26 OF GENITALS Tetracyclines Allergy Intermediate swelling Verified 10/07/23 06:26 of genitals dulaglutide [From Trulicity] Allergy Mild Itching Verified 10/07/23 06:26 semaglutide [From Ozempic] Allergy Mild Itching Verified 10/07/23 06:26 acarbose [From Precose] AdvReac Intermediate muscle Verified 10/07/23 06:26 pain mostly lovastatin [From Advicor] AdvReac Mild muscle Verified 10/07/23 06:26 aches metformin AdvReac Mild muscle Verified 10/07/23 06:26 soreness Fphqrxm-SIE-QmO Reductase AdvReac Mild JOINT PAIN Verified 10/07/23 06:26 Inhibitor [Wdkwdeo-Tjv-Omu Reductase Inhibitor] Consultations 10/07/23 06:54 Consult Hospitalist Routine Procedures Performed Operation Date: 10/07/23 07:50 Actual Procedures p Cystolithopaxy (Bladder Stone Fragmentation and Removal)(Not Applicable) - ePe Quintanilla DO s Transurethral Resection of the Prostate(Not Applicable) - Pee Quintanilla DO Hospital Course (1) BPH loc w urin obs/LUTS: (2) Bladder stone: Pt POD #1 s/p cystoscopy with cystolitholapaxy, fulguration of bladder lesion/ulcer and transurethral resection of prostate Doing well, progressing as expected Afebrile with stable vitals Labs reviewedcreatinine 2.38, WBC 4.11, hemoglobin 12.4 Tolerating PO diet 3 way River catheter intact, patent and draining clear yellow urine with CBI on slow CBI clamped in am, rechecked urine mid morning and remains clear yellow Patent is ready for discharge now Maintain River catheter Discharge home with course of antibiotics Expected clinical course reviewed, all questions answered Will arrange outpatient follow-up with our service for voiding trial Total Time Total Time Spent Total Time Spent (In Minutes): 29 Discharge Plan Discharge Items Patient Disposition: Home - Self-Care Reason For Visit: Benign Prostatic Hyperplasia with Lower Urinary Tr Discharge Diagnosis: Benign prostatic hyperplasia with lower urinary tract symptoms Activity: Per Instructions section Lifting: No more than 25 pounds Bathing Comment: Okay to shower after discharge, no tub bath or soaking Sexual Activity: Wait until after follow-up appointment Exercise/Sports: Wait until after follow-up appointment Driving/Machine Use: Resume 1 day after discharge Non-emergency contact: Urologist Call non-emergency contact if: your pain is not controlled, you have a fever and your temperature is above 101 Follow-up/Referrals: Pee Quintanilla DO [Physician] - 11/06/23 11:15 am Vane Diamond PA-C [Primary Care Provider] - [facility],Nurse [FAKE FOR SCHEDULES] - 10/18/23 9:00 am Diet: Regular Addtl Attending Provider Instructions: Please take all medications as prescribed and keep all follow-ups as scheduled. Please call our office at [phone] with any questions, concerns or need to reschedule appointments for any reason. We are happy to assist you. Tips for your recovery at home: Dont be alarmed by brownish or reddish blood or clots in your urine. This is a result of the procedure. This may occur off and on for weeks to months after the procedure but should continue to improve. Drink plenty of fluids during the day (enough to keep your urine very light colored). This will help keep a healthy flow of urine. Do not lift >25 lbs until your followup Avoid constipation. Please use a stool softener (Colace) for the first two weeks after your procedure Be sure to finish the antibiotics as prescribed. If you go home with a catheter, please wash tubing where it enters your body twice daily with mild soap (Dove or Dial). Once your catheter is removed, expect some blood in your urine and some burning when you urinate. You should have an appointment to have this removed, if you do not please call our office to arrange. Pending Studies at Discharge: Yes Stand-Alone Forms: [facility], Smoking Cessation Medications and DC Order Prescriptions: New amoxicillin-pot clavulanate [Augmentin] 500-125 mg tablet 1 tab PO BID Qty: 14 0RF Continued clotrimazole 1 % cream 1 applic topical UD PRN (Reason: itchiness) ascorbate calcium (vitamin C) 500 mg tablet 500 mg PO Q2D amoxicillin-pot clavulanate [Augmentin] 500-125 mg tablet 1 tab PO BID Qty: 28 0RF Patient Comments: for uti zanubrutinib 80 mg capsule 80 mg PO BID allopurinol 100 mg tablet 100 mg PO QAM insulin glargine 100 unit/mL solution 10 unit subcut QAM triamcinolone acetonide 0.1 % cream 1 applic topical BID PRN (Reason: .) citalopram [Celexa] 20 mg Tablet 20 mg PO QPM tamsulosin 0.4 mg Capsule 0.4 mg PO PM nitroglycerin 0.4 mg Tablet, Sublingual 1 tab Sublingual UD PRN (Reason: Chest Pain) Rx Instructions: NEEDED FOR CHEST PAIN : ONE TABLET UNDER THE TONGUE EVERY 5 MINUTES X THREE DOSES. multivitamin Tablet 1 tab PO QAM coQ10 (ubiquinol) 200 mg Capsule 400 mg PO QPM glucosamine-chondroitin 167-133 mg Capsule 1 cap PO BID Clindamycin Soln 1 dose topical DAILY PRN (Reason: /) Patient Comments: for psoriasis Rx Instructions: Take small amount skin every day furosemide 20 mg tablet 20 mg PO UD PRN (Reason: Edema/wt gain) ferrous sulfate 325 mg (65 mg iron) Tablet 325 mg PO Q OTHER DAY isosorbide mononitrate 30 mg Tablet Extended Release 24 Hr 30 mg PO BID metoprolol succinate 25 mg Tablet Extended Release 24 Hr 25 mg PO HS Qty: 0 0RF repaglinide 2 mg Tablet 2 mg PO TIDM Rx Instructions: administer within 30 minutes of a meal or snack Discharge Orders: Discharge Order (Routine); Ordered 10/08/23 Ordered By: Aidee Aguirre Admission Data Admit Date/Time: 10/07/23 06:54 Attending Provider: Pee Quintanilla Admit Provider: Pee Quintanilla Primary Care Provider: Vane Diamond Other Providers: Rahul Mayen; Brittany Vidal; Linwood Kitchen; Jamie Will; [facility] Ponce; Sd Mora; Pia Carlson; Carmel Perry; Lizz Gupta Kevin M.; Rosendo Liao; Stefani Leggett; Freedom Dan; Linwood Burt; Osiel Arzate; Char Guevara; Jess Singer; Jess Delgado; Maritza Nayak; Jackson Brown; Pam Davis; Cesar Bai Paul; Jose J Sanitago; Mahsa Agarwal; Jevon Anthony; Mathieu Munoz; Jamie Stone; Vic Hale; Patsy Ruff Other Interventions: Discharge Summary Assessment (RN) Last Done: 10/08/23 10:41 Coding Level of Care Code 67366 IN/OBS DISCH 30 MIN/LESS Diagnoses BPH loc w urin obs/LUTS N40.1 Bladder stone N21.0
== END 2023-10-08 12:18 | disposition home or self-care (01) ==
LOC: ASU 06:09 → 3E 06:09